=== PATIENT | female | born 1950 | race Caucasian/White ===

== ENCOUNTER → 2018-04-22 03:15 | Outpatient (CLI) | payer MEDICARE, BC, SELFPAY ==
[2018-04-22 10:34] LABS: CREATININE 0.76 mg/dL (0.55-1.02); Cholesterol 199 mg/dL (50-200); Glucose 93 mg/dL (70-100); HDL Cholesterol 91 mg/dL (40-60); LDL CHOLESTEROL 95 mg/dL (<100); Potassium 4.1 mmol/L (3.5-5.1); Triglyceride 64 mg/dL (30-150)
== END ==
PROVIDERS: PCP Family Medicine; Visit Provider Family Medicine
DX: E78.5 Hyperlipidemia, unspecified (principal); I10 Essential (primary) hypertension; Z13.1 Encounter for screening for diabetes mellitus
CPT/HCPCS: 36415; 80061; 82947; 83721; 82565; 84132

== ENCOUNTER → 2018-05-15 08:47 | Outpatient (BNVA) | payer MEDICARE, BC, SELFPAY | PROVIDERS: PCP Family Medicine; Referring Provider Family Medicine; Visit Provider Surgery | DX: R49.0 Dysphonia (principal) | CPT/HCPCS: 99202 ==

== ENCOUNTER 2018-06-11 07:33 | Day surgery (SDC) | payer MEDICARE, BC, SELFPAY ==
--- NOTE | 2018-06-11 06:43 | PDOC.DSDIS_ITS ---
Discharge Plan Disposition Patient Disposition: HOME Condition: Good Discharge Details Reason For Visit: GERD Attending Provider: Isadora Mercado Primary Care Provider: Meño Cowan Home Meds and New Rx's Prescriptions: Continue multivitamin [Once Daily] 1 EACH tablet 1 tab PO DAILY RF: 0 docusate sodium [Colace] 100 MG capsule 100 mg PO DAILY Qty: 180 RF: 4 omega-3 fatty acids-fish oil 1 EACH capsule 1 cap PO DAILY RF: 0 conjugated estrogens [Premarin] 45 GM cream 1 g VG TWICE WEEKLY Qty: 1 RF: 0 lutein 20 MG tablet 20 mg PO DAILY RF: 0 amlodipine [Norvasc] 10 MG tablet 10 mg PO QAM Qty: 90 RF: 3 hydrochlorothiazide 25 MG tablet 25 mg PO QAM Qty: 90 RF: 3 lisinopril 10 mg tablet 10 mg PO DAILY Qty: 90 RF: 3 omeprazole 40 mg Capsule,Delayed Release(Dr/Ec) 40 mg PO BID RF: 0 Discharge Instructions Instructions: Upper Endoscopy (DC), Diet for Stomach Ulcers and Gastritis (GEN) , Gastritis (DC), Esophagitis (DC) Additional Instructions: Findings: Inflammation of stomach and esophagus Follow up: as needed. Check in with me at the hospital in about 4 weeks New Medications: none Please call if you develop: Fevers >101.5 Nausea or Vomiting Abdominal pain that is not transient Shortness of breath 1. Because there will be medication in your system for the next 24 hours, you may feel a little sleepy. Your coordination will be affected. Therefore: a. Do not drive or operate dangerous equipment for 24 hours. b. Do not drink alcohol beverages for 24 hours (not even beer). c. Plan to go home and rest for the day. 2. Generally there are no restrictions on your activity after a day or so has gone by, but you may feel a bit fatigued for a few days. 3 After you arrive home you may have a light meal and return to a normal diet as you can tolerate it without feeling sick to your stomach. 4. After surgery, you may feel pain or discomfort. This should be only transient , but if it persists please contact your doctor. 5. If there are any questions regarding the findings of your procedure, please feel free to contact your doctor. 6. If you are unable to contact your doctor with a problem, contact the hospital at [phone]. 7. Continue all your regular medications unless directed otherwise. I understand the above instructions and have no questions. Signature of Patient or Responsible Adult Escort Date/Time Name of Responsible Adult Escort Signature of Nurse Date/Time Stand Alone Forms: Cleve Monroe (ANDRIYU) Print Language: Senegalese Activity:: Activity as Tolerated Diet:: As Tolerated
--- NOTE | 2018-06-11 06:52 | ROE_ITS ---
Date of service: 06/11/18 Operative Note DATE OF PROCEDURE: 06/11/18 PRE-OP DIAGNOSIS: Hoarsness POST-OP DIAGNOSIS: other (Gastritis, esophagitis and gastric polyps) PROCEDURE: EGD with biopsies SURGEON: Isadora Mercado ANESTHESIA: MAC (Bunny Abreu, GONZALES) ESTIMATED BLOOD LOSS: 5 PATHOLOGY: other (Biopsies of antrum, gastric polyp bx and GE junction bx) COMPLICATIONS: None Patient was transported to: same day Patient's condition: stable Indications: Mrs. Kc is a pleasant 67 year old female who has been having hoarsness and dry cough for a while. She saw me in the office and we started her on Omeprazole. She then saw ENT who diagnosed with reflux and increased her Omeprazole to BID. She is here today for an EGD. Findings: Moderate Gastritis and gastric polyps. GE junction with inflammation Procedure Description: After informed consent was obtained the patient was take to the procedure room and placed in a supine position. Monitors were applied and a time out was done. The patients name, date of , procedure type, allergies to medications and metal in their body was reviewed. A bite block was placed and the patient was sedated. Once sedated and comfortable the gastroscope was advanced through the oropharynx which was grossly normal into the esophagus. The proximal and mid-esophagus were normal. In the distal esophagus there was moderate inflammation noted. The scope was advanced into the stomach and through the pylorus into the 3rd portion of the duodenum. The duodenum was noted to be normal. The scope was retracted back into the stomach and biopsies were done to rule out H. pylori. There were numerous gastric polyps and several were biopsied. The scope was retro-flexed. The cardia and fundus were noted to be normal. The scope was retracted back into the esophagus and biopsies were done of the GE junction to rule out Newberry's. The Z line was irregular. The GE junction was at 35 cm. The scope was removed and the patient was woken up and taken back to [facility] in stable condition. Follow up: I will check in with her in 4 weeks. For now continue with Omeprazole 40 mg BID.
[2018-06-11 07:48] VITALS: BP 148/77; PULSE 87; RESP 16; TEMP 36.8; O2SAT 97
[2018-06-11] MEDS: Lactated Ringers 1,000 ML 80 ML IV (08:01)
--- NOTE | 2018-06-11 09:00 | STOM_PTH ---
PATIENT: Leona Kc LOC: [facility] U#:[id number] AGE/SX: 67/F ROOM: RE06/11/[address]: Isadora Mercado MD : [id number] BED: DIS: 06/11/2018 SPEC #: [id number] RECD: 06/11/18 12:38 STATUS: LEO REQ #: [id number] ELLIE: 06/11/18 09:[address]: Isadora Mercado DEPT: Surgical Specimen RECD BY: Caty Lanza ENTERED: 06/11/18 12:41 SP TYPE: STOMACH OTHR DR: Meño Cowan MD Tissues: 1 - STOMACH BIOPSY 2 - STOMACH BIOPSY 3 - ESOPHAGUS BIOPSY Procedures: GROSS AND MICRO LEVEL 4 Comments: [id number]
[2018-06-11 09:28] VITALS: BP 131/74; PULSE 71; RESP 14; TEMP 36.3; O2SAT 98
== END 2018-06-11 10:20 | disposition home or self-care (01) ==
LOC: SUR 07:34
PROVIDERS: PCP Family Medicine; Visit Provider Surgery
PROC: 0DJ68ZZ Inspection of Stomach, Via Natural or Artificial Opening Endoscopic (ICD-10-PCS; CPT 43235; principal; 2018-06-11 08:45)
DX: R49.0 Dysphonia (principal); K21.0 Gastro-esophageal reflux disease with esophagitis; K31.7 Polyp of stomach and duodenum; K29.30 Chronic superficial gastritis without bleeding; I10 Essential (primary) hypertension
CPT/HCPCS: 43239; 88305; J2250; J3010

== ENCOUNTER 2018-12-10 00:26 | Outpatient (CLI) | payer MEDICARE, BC, SELFPAY ==
--- NOTE | 2018-12-10 15:45 | DI.MAMMO_ITS ---
SYMPTOMS/DIAGNOSIS: SCREENING, Z12.31 MAMMOGRAMS: Mammograms were interpreted according to the usual protocol including computer analysis with CAD system, tomosynthesis and C view imaging. The breast tissue is of moderate radiodensity. There is no dominant mass. There are no suspicious calcifications and there has been no significant interval change when compared with prior studies. SUMMARY: No evidence of malignancy, category 1. Yearly screening mammography is recommended. Breast density category B. SA ASSESSMENT OF FINDINGS: Negative. Category 1. Patient will receive a letter notifying them of these results. BI-RADS category B. There are scattered areas of fibroglandular density.
== END 2018-12-10 00:46 ==
PROVIDERS: PCP Family Medicine; Visit Provider Obstetrics & Gynecology
DX: Z12.31 Encounter for screening mammogram for malignant neoplasm of breast (principal)
CPT/HCPCS: 77063; 77067

== ENCOUNTER → 2019-03-05 07:52 | Outpatient (BNVA) | payer MEDICARE, BC, SELFPAY | PROVIDERS: PCP Family Medicine; Referring Provider Family Medicine; Visit Provider Surgery | DX: K21.9 Gastro-esophageal reflux disease without esophagitis (principal); I10 Essential (primary) hypertension | CPT/HCPCS: 99213 ==

== ENCOUNTER 2019-05-11 09:55 | Outpatient (CLI) | payer MEDICARE, BC, SELFPAY ==
[2019-05-11 11:09] LABS: CREATININE 0.74 mg/dL (0.55-1.02); Potassium 4.4 mmol/L (3.5-5.1)
== END 2019-05-11 10:15 ==
PROVIDERS: PCP Family Medicine; Visit Provider Family Medicine
DX: I10 Essential (primary) hypertension (principal); K21.0 Gastro-esophageal reflux disease with esophagitis
CPT/HCPCS: 36415; 99212; 99213; 82565; 84132

== ENCOUNTER → 2019-10-15 09:26 | Outpatient (BNVA) | payer MEDICARE, BC, SELFPAY | PROVIDERS: PCP Family Medicine; Referring Provider Family Medicine; Visit Provider Surgery | DX: R49.0 Dysphonia (principal); I10 Essential (primary) hypertension | CPT/HCPCS: 99212; 99213 ==

== ENCOUNTER 2020-04-06 10:00 | Outpatient (CLI) | payer MEDICARE, BC, SELFPAY ==
--- NOTE | 2020-04-06 09:45 | DI.MAMMO_ITS ---
EXAM: MAMMO SCREENING CLINICAL HISTORY: SCREENING, Z12.39 TECHNIQUE: Mammograms were interpreted according to the usual protocol including computer analysis w ith CAD system, tomosynthesis and C-view imaging. COMPARISON: 2009 through 2018 FINDINGS: The breasts are composed of scattered fibroglandular densities, Breast Density category B. No suspicious masses or suspicious microcalcifications are seen. No skin thickening or abnormal axillary lymph nodes are seen. There has been no significant change from prior exams. IMPRESSION: BI-RADS Category 1, Negative mammogram Yearly screening mammography is recommended. Breast Density Category B, scattered fibroglandular densities.
== END 2020-04-06 10:20 ==
PROVIDERS: PCP Family Medicine; Visit Provider Obstetrics & Gynecology
DX: Z12.31 Encounter for screening mammogram for malignant neoplasm of breast (principal); R92.2 Inconclusive mammogram
CPT/HCPCS: 77063; 77067

== ENCOUNTER 2020-05-26 02:46 | Outpatient (CLI) | payer MEDICARE, BC, SELFPAY ==
[2020-05-26 12:59] LABS: CREATININE 0.68 mg/dL (0.55-1.02); Calculated LDL 125 mg/dL (<100); Cholesterol 237 mg/dL (<200); HDL Cholesterol 95 mg/dL (40-60); Potassium 4.4 mmol/L (3.5-5.1); Triglyceride 87 mg/dL (<150)
== END 2020-05-26 03:06 ==
PROVIDERS: PCP Family Medicine; Visit Provider Family Medicine
DX: E78.5 Hyperlipidemia, unspecified (principal); I10 Essential (primary) hypertension
CPT/HCPCS: 36415; 80061; 82565; 84132

== ENCOUNTER → 2020-08-15 07:59 | Outpatient (BNVA) | payer MEDICARE, BC, SELFPAY | PROVIDERS: PCP Family Medicine; Referring Provider Family Medicine; Visit Provider Surgery | DX: R10.10 Upper abdominal pain, unspecified (principal); Z11.59 Encounter for screening for other viral diseases; Z98.890 Other specified postprocedural states | CPT/HCPCS: 99213 ==

== ENCOUNTER 2020-08-25 02:12 | Outpatient (CLI) | payer MEDICARE, BC, SELFPAY ==
[2020-08-28 12:22] LABS: COVID-19 RT-PCR Result NEGATIVE (Negative)
== END 2020-08-25 02:32 ==
PROVIDERS: PCP Family Medicine; Visit Provider Surgery
DX: Z01.818 Encounter for other preprocedural examination (principal); Z11.59 Encounter for screening for other viral diseases
CPT/HCPCS: U0003

== ENCOUNTER 2020-08-30 07:09 | Day surgery (SDC) | payer MEDICARE, BC, SELFPAY ==
--- NOTE | 2020-08-30 06:59 | W.COLOREPORT ---
Date of service: 08/30/20 Time of Service: : Colonoscopy Report Date of procedure: 08/30/20 Pre-op diagnosis general: Abdominal pain Post-op diagnosis procedure note: other (Normal colonoscopy) Procedure: Colonoscopy Surgeon: Isadora Mercado Anesthesia proc note operative: other (General/ASA 2/Kylie valadez, GONZALES) Estimated blood loss (mL): 0 Pathology: none sent Complications: None Disposition: same day Indications: Shoshana is here today because she has been having some increased frequency of upper abdominal pain. The pain is crampy in nature. It is intermittent. She has had pain like this in the past after having an epigastric hernia repaired. Differential diagnosis includes recurrence of the hernia, although I could not feel a recurrence today, pain from scar tissue, or other abdominal pathology. We discussed doing a CT scan abdomen pelvis with IV and oral contrast. Her last colonoscopy was 9-1/2 years ago and was normal. With her new abdominal complaints as well as being 9-1/2 years out from her last colonoscopy I think a colonoscopy is also reasonable. We will schedule CT scan abdomen pelvis with IV contrast. We will also schedule her for a colonoscopy and Covid testing prior to the procedure. Risks, benefits and complications have been reviewed. Complications include but are not limited to bleeding, pain, perforation, missed small lesion/polyp, sore throat, aspiration and adverse reaction to the medications. Questions were entertained and answered to their satisfaction and they wished to proceed. No guarantees were given or implied. COVID-19 testing explained to the patient. Reason for test reviewed. Quarantine per state requirements reviewed with patient. Patient understands and agrees to testing. Prep: Miralax/Dulcolax Procedure Start Time: : Procedure End Time: :13 Retraction Time: 18 minutes Findings: Normal colon Procedure Description: After informed consent was obtained the patient was taken to the procedure room and placed in a left decubitous position. Monitors were applied and a time out was done. The patients name, date of , procedure, allergies to medications and metal in their body was reviewed. The patient was then sedated. Once sedated and comfortable a rectal exam was done. External exam was normal. Internal exam revealed a normal sphincter tone and no palpable masses. The scope was then introduced and retro-flexed. No internal hemorrhoids were identified. The scope was then advanced to the cecum with a lot of difficulty do to a tortuous colon. The ileocecal valve and appendiceal orifice were identified. The prep was adequate. The scope was then slowly retracted over 18 minutes back into the rectum. There were no polyps and no diverticulosis. The scope was removed and the patient was woken up and taken back to Same day surgery in stable condition. The patient tolerated the procedure well and there were no immediate complications. Follow up: The patient should follow up in 10 years unless they develop changes in bowel habits or other new gastrointestinal complaints.
--- NOTE | 2020-08-30 07:00 | W.PM.DSUDISC ---
Discharge Plan Disposition Patient Disposition: HOME Condition: Good Discharge Details Reason For Visit: Colonoscopy Attending Provider: Isadora Mercado Primary Care Provider: Meño Cowan Home Meds and New Rx's Prescriptions: Continued aspirin [Adult Low Dose Aspirin] 81 mg tablet,delayed release (DR/EC) 81 mg PO DAILY RF: 0 multivitamin [Once Daily] 1 EACH tablet 1 tab PO DAILY RF: 0 docusate sodium [Colace] 100 MG capsule 100 mg PO DAILY Qty: 180 RF: 4 omega-3 fatty acids-fish oil 1 EACH capsule 1 cap PO DAILY RF: 0 lutein 20 MG tablet 20 mg PO DAILY RF: 0 amlodipine [Norvasc] 10 mg tablet 10 mg PO QAM Qty: 90 RF: 3 hydrochlorothiazide 25 mg tablet 25 mg PO QAM Qty: 90 RF: 3 omeprazole 40 mg capsule,delayed release(DR/EC) 40 mg PO DAILY Qty: 90 RF: 3 losartan 50 mg tablet 75 mg PO DAILY Qty: 145 RF: 3 Discontinued bisacodyl [Dulcolax (bisacodyl)] 5 mg tablet,delayed release (DR/EC) 5 mg PO ONCE Qty: 4 RF: 0 polyethylene glycol 3350 17 gram powder in packet 255 g PO DAILY Qty: 15 RF: 0 Discharge Instructions Additional Instructions: Findings: Normal colonoscopy Follow up: 10 years Please call if you develop: fevers >101.5 Nausea or Vomiting Abdominal pain that is not transient DAY SURGERY UNIT POST ENDOSCOPY INSTRUCTIONS 1. Because there will be medication in your system for the next 24 hours, you may feel a little sleepy. Your coordination will be affected. Therefore: a. Do not drive or operate dangerous equipment for 24 hours. b. Do not drink alcohol beverages for 24 hours (not even beer). c. Plan to go home and rest for the day. 2. Generally there are no restrictions on your activity after a day or so has gone by, but you may feel a bit fatigued for a few days. 3 After you arrive home you may have a light meal and return to a normal diet as you can tolerate it without feeling sick to your stomach. 4. After surgery, you may feel pain or discomfort. This should be only transient, but if it persists please contact your doctor. 5. If there are any questions regarding the findings of your procedure, please feel free to contact your doctor. 6. If you are unable to contact your doctor with a problem, contact the hospital at [phone]. 7. Continue all your regular medications unless directed otherwise. I understand the above instructions and have no questions. Signature of Patient or Responsible Adult Escort Date/Time Name of Responsible Adult Escort Signature of Nurse Date/Time Activity:: Activity as Tolerated Diet:: As Tolerated Discharge Orders Discharge Orders: Discharge Order (Routine); Ordered 08/30/20 Ordered By: Isadora Mercado
[2020-08-30 07:28] VITALS: BP 124/83; PULSE 81; RESP 16; TEMP 36.6; O2SAT 98
[2020-08-30] MEDS: Lactated Ringers 1,000 ML 80 ML IV (07:50)
[2020-08-30] MEDS: Hyoscyamine 0.125 MG SL/ORAL/CHEW SL (09:36)
[2020-08-30 09:50] VITALS: BP 134/73; PULSE 71; RESP 18; TEMP 36.5; O2SAT 98
== END 2020-08-30 10:28 | disposition home or self-care (01) ==
LOC: SUR 07:10
PROVIDERS: PCP Family Medicine; Visit Provider Surgery
PROC: 0DJD8ZZ Inspection of Lower Intestinal Tract, Via Natural or Artificial Opening Endoscopic (ICD-10-PCS; CPT 45378; principal; 2020-08-30 08:15)
DX: R10.10 Upper abdominal pain, unspecified (principal)
CPT/HCPCS: 45378; J2001; J3490

== ENCOUNTER 2020-09-04 01:42 | Outpatient (CLI) | payer MEDICARE, BC, SELFPAY ==
[2020-09-04 09:25] LABS: CREATININE 0.74 mg/dL (0.55-1.02)
--- NOTE | 2020-09-04 10:25 | DI.CT_ITS ---
EXAM: CT ABDOMEN PELVIS W CLINICAL HISTORY: upper abd pain, h/o epigastric hernia repair. TECHNIQUE: Imaging Protocol: Axial computed tomography images with coronal and sagittal reformatted images were created and reviewed CONTRAST MATERIAL: Intravenous: Omnipaque 100cc Oral: Yes. COMPARISON: No exams were available for comparison FINDINGS: VISUALIZED LUNG BASES: No nodules nor pleural effusions evident. ABDOMEN: There is no ascites. LIVER: Is a small cyst in inferior right hepatic lobe which measures 1.2 by 0.9 centimetres. No othe r focal hepatic findings. No dilatation of intrahepatic ducts. GALLBLADDER/BILIARY: No obvious gallbladder pathology. CBD is not dilated. PANCREAS: No evidence of pancreatic mass nor dilatation of the pancreatic duct. SPLEEN: Spleen size is normal. There is a 2.6 by 0.6 x 4.0 cm subcapsular fluid collection along lat eral aspect of the spleen. This appears uniform in density. No other intrasplenic findings. The sp lenic and portal veins are patent. ADRENALS: There are no significant adrenal masses. KIDNEYS:There is a prominent extrarenal pelvis in left kidney. This is associated with mild hydronep hrosis. Probable element of UPJ obstruction. A smaller extrarenal pelvis in the right kidney is not ed, this not associated with caliectasis. The mid-lower ureters are not dilated. No obvious abnorma lity in the urinary bladder. No solid renal masses. No calculi nor hydronephrosis.. ABDOMINAL AORTA: Abdominal aorta is not enlarged and there is no [id number] adenopat hy. ABDOMINAL WALL/GI: No evidence of significant anterior abdominal wall hernia. No bowel obstruction. PELVIS: GI: No evidence of appendicitis.No evidence of sigmoid diverticulitis. LYMPH NODES: There is no intrapelvic nor inguinal adenopathy. REPRODUCTIVE: There is a prominent posterior myometrial calcified uterine fibroid which measures 3 x 3 centimetres. There are no abnormal adnexal masses. No free fluid in the pelvis. URINARY BLADDER: No calculi nor obvious masses evident OSSEOUS: Degenerative anterolisthesis of L4 upon L5 due to facet arthropathy and there is some disc s pace narrowing at this level also evident. There is approximately 1 centimeter anterior slippage of L4 upon L5. No other listhesis. Superior endplate Schmorl's node invagination in lower thoracic ilir tebrae noted. No lytic osseous lesions evident. IMPRESSION: 1. There is a longitudinally orientated subcapsular fluid collection along the lateral aspect of the spleen, this measuring 4 cm cephalocaudal by 0.6 centimeter wide by 2.6 centimeter AP. 2. There is a 12 x 9 millimeter benign cyst in the right hepatic lobe, inferiorly. No solid hepatic lesions. 3. Prominent extrarenal pelvis on the left side with an element of mild hydronephrosis. This most pr obably related to an element of left-sided UPJ obstruction. There is no significant thinning of the cortical mantle. Urology consultation recommended. A smaller extrarenal pelvis on the opposite-righ t side is noted, this not associated with ipsilateral caliectasis. No other significant renal findin gs. 4. 3 centimeter calcified uterine fibroid. RADIATION DOSE DELIVERED: 816.43mGy.cm Total DLP DATA REPOSITORY: All CT scans at this facility are submitted to the National Radiology Data Registry (NRDR) Dose Index Registry (DIR) with the [employer] (A[employer]). RADIATION OPTIMIZATION: All CT scans at this facility use at least one of these dose optimization te chniques: automated exposure control; mA and/or kV adjustment per patient size (includes targeted exa ms where dose is matched to clinical indication); or iterative reconstruction.
[2020-09-04] MEDS: Normal Saline - Diluent 50 ML VIAL IV (10:27)
[2020-09-04] MEDS: Omnipaque 350 MG/ML 100 ML BTL IJ (10:28)
[2020-09-04] MEDS: Breeza Beverage 473 ML BTL PO ×2 (10:29)
== END 2020-09-04 02:02 ==
PROVIDERS: PCP Family Medicine; Visit Provider Surgery
DX: R10.10 Upper abdominal pain, unspecified (principal); K76.89 Other specified diseases of liver; N13.30 Unspecified hydronephrosis; D73.89 Other diseases of spleen; D25.9 Leiomyoma of uterus, unspecified
CPT/HCPCS: 74177; 82565; J3490

== ENCOUNTER 2020-11-30 02:23 | Outpatient (CLI) | payer MEDICARE, BC, SELFPAY ==
--- NOTE | 2020-11-30 14:27 | DI.DEXA_ITS ---
EXAM: XR DEXA BONE DENSITY W/WO SERA CLINICAL HISTORY: SCREENING FOR OSTEOPOROSIS IN POSTMENOPAUSAL WOMAN,Z78.0 TECHNIQUE: Routine DEXA evaluation of the lumbar spine, hip, or forearm. COMPARISON: Prior DXA scans 2013 and 2008 FINDINGS: Performed on a [facility] unit. Lateral image: No compression fracture evident. Lumbar Spine total T-score: -1.4 2014 reading was -0.6 Hip total T-score:-1.6 . Prior 2014 reading was -1.0 Independent reading at the level left femoral neck today is a T-score of -2.0 Forearm total T-score: -2.6 IMPRESSION: Bone mineral density measures in the osteopenia range. Fracture risk is moderate. Note: Any spine fracture indicates 5x risk for subsequent spine fracture and 2x risk for subsequent h ip fracture. World Health Organization criteria for BMD interpretation classify patients: Normal...... T- Score at or above -1.0 Osteopenic... T- Score between -1.0 and -2.5 Osteoporosis... T-Score at or below -2.5
== END 2020-11-30 02:43 ==
PROVIDERS: PCP Family Medicine; Visit Provider Family Medicine
DX: M85.88 Other specified disorders of bone density and structure, other site (principal); Z78.0 Asymptomatic menopausal state
CPT/HCPCS: 77080

== ENCOUNTER 2021-05-10 01:33 | Outpatient (CLI) | payer MEDICARE, BC, SELFPAY ==
--- NOTE | 2021-05-10 07:30 | DI.RAD_ITS ---
Exam(s) XR KNEE RT 3V AP,LAT,GUNNER EXAM: XR KNEE RT 3V AP,LAT,GUNNER CLINICAL HISTORY: rt knee pain,M25.569,G89.29. TECHNIQUE: 2D digital imaging was performed. COMPARISON: No exams were available for comparison FINDINGS: BONES: No acute fracture is present. No bony destructive lesion is seen. JOINTS: The knee is normally aligned. No joint effusion is seen. There is mild periarticular spurri ng. SOFT TISSUE: Normal. IMPRESSION: Mild degenerative changes. DATA REPOSITORY: RADIATION DOSE DELIVERED:
== END 2021-05-10 01:53 ==
PROVIDERS: PCP Family Medicine; Visit Provider Family Medicine
DX: M25.561 Pain in right knee; G89.29 Other chronic pain
CPT/HCPCS: 73562

== ENCOUNTER 2021-06-28 11:04 | Outpatient (CLI) | payer MEDICARE, BC, SELFPAY ==
--- NOTE | 2021-06-28 10:45 | DI.RAD_ITS ---
Exam(s) XR KNEE RT 1V EXAM: XR KNEE RT 1V CLINICAL HISTORY: right knee pain. TECHNIQUE: 2D digital imaging was performed. COMPARISON: CR XR KNEE RT 3V AP,LAT,GUNNER from 05/10/2021 FINDINGS: Single merchant's view of the right knee reveals no degenerative changes in the patellofemoral compar tment. No joint space narrowing. No osteochondral defects. Bone density appears normal. No fractu res evident. IMPRESSION: DATA REPOSITORY: RADIATION DOSE DELIVERED:
== END 2021-06-28 11:05 | disposition home or self-care (01) ==
LOC: DIORS 11:05
PROVIDERS: PCP Family Medicine; Referring Provider Family Medicine; Visit Provider Student in an Organized Health Care Education/Training Program
DX: M25.561 Pain in right knee (principal)
CPT/HCPCS: 99213; 73560

== ENCOUNTER 2021-07-13 02:29 | Outpatient (CLI) | payer MEDICARE, BC, SELFPAY ==
--- NOTE | 2021-07-13 08:30 | DI.MRI_ITS ---
Exam(s) MR LOWER JOINT RT WO EXAM: MR LOWER JOINT RT WO CLINICAL HISTORY: RT ANT KNEE PAIN, M25.561. TECHNIQUE: Multiplanar multisequence MRI Examination was performed. COMPARISON: None. FINDINGS: BONES/JOINTS: No evidence of fracture. No evidence of bone lesion. No joint space narrowing identifie d. Moderate-sized joint effusion identified. Mild synovial thickening. Fluid extends inferiorly al ricardo popliteus muscle. LIGAMENTS: The anterior and posterior cruciate ligaments and medial and lateral collateral ligaments are intact. Menisci: Both anterior horns are diminutive. Both menisci show peripheral displacement consistent wi th degenerative change. There is increased horizontal signal in the anterior horn of the lateral men iscus which has a somewhat linear configuration which could represent a superimposed tear. Cartilage: Focal small linear defect at the apex of the patella. SOFT TISSUES: Unremarkable. IMPRESSION: Degenerative changes of both menisci. Probable superimposed horizontal tear in the anterior horn of the lateral meniscus. Moderate-sized joint effusion. No ligament tears. DATA REPOSITORY:
== END 2021-07-13 02:49 ==
PROVIDERS: PCP Family Medicine; Visit Provider Student in an Organized Health Care Education/Training Program
DX: M25.561 Pain in right knee (principal); M25.461 Effusion, right knee; M17.11 Unilateral primary osteoarthritis, right knee
CPT/HCPCS: 73721

== ENCOUNTER 2021-08-06 03:10 | Outpatient (CLI) | payer MEDICARE, BC, SELFPAY ==
[2021-08-06 12:43] LABS: Source Nasal/Nares
[2021-08-06 17:39] LABS: COVID-19 PCR Negative (Negative)
== END 2021-08-06 03:11 | disposition home or self-care (01) ==
PROVIDERS: PCP Family Medicine; Visit Provider Student in an Organized Health Care Education/Training Program
DX: Z20.822 Contact with and (suspected) exposure to COVID-19 (principal)
CPT/HCPCS: 87635

== ENCOUNTER 2021-08-07 11:08 | Day surgery (SDC) | payer MEDICARE, BC, SELFPAY ==
[2021-08-07] VITALS (9 sets, daily range): BP systolic 123–160; BP diastolic 61–91; PULSE 64–83; RESP 12–17; TEMP 36.1–36.8; O2SAT 95–100; BMI 28.7
[2021-08-07] MEDS: Lactated Ringers 1,000 ML 80 ML IV (11:48)
--- NOTE | 2021-08-07 12:10 | ANES.PREOP_ITS ---
General Info Date of Service Date Performed: 08/07/21 Height: 5 ft 1 in Weight: 68.9 kg Body Mass Index (BMI): 28.7 Surgical Procedure: Operation Date: 08/07/21 14:25 Proposed Procedures Side Surgeon p Knee Arthroscopy partial medial menisectomy Right Yinka Peoples MD Meds Allergies and Home Medications Allergies Allergy/AdvReac Type Severity Reaction Status Date / Time Tetanus Vaccines and Toxoid Allergy Intermediate SEVERE Verified 08/07/21 11:26 LOCAL REACTION atenolol AdvReac Intermediate RAYNAUD'S Verified 08/07/21 11:26 Home Medication Medication Instructions Recorded docusate sodium [Colace] 100 mg PO DAILY #180 tab-cap 02/03/13 multivitamin [Once Daily] 1 tab PO DAILY 02/03/13 omega-3 fatty acids-fish oil 1 cap PO DAILY 02/03/13 lutein 20 mg PO DAILY 06/04/16 aspirin 81 mg tablet,delayed 81 mg PO DAILY 05/11/19 release amlodipine 10 mg tablet 10 mg PO QAM #90 tab-cap 03/20/21 hydrochlorothiazide 25 mg tablet 25 mg PO QAM #90 tab-cap 03/20/21 losartan 50 mg tablet 75 mg PO DAILY #145 tab-cap 03/20/21 omeprazole 40 mg capsule,delayed 40 mg PO DAILY #90 cap 03/20/21 release Current Visit Medications: Current Medications Generic Name Dose Route Start Last Admin Trade Name Freq PRN Reason Stop Dose Admin Ringer's Solution 1,000 mls @ 80 mls/hr 08/07/21 06:00 08/07/21 11:48 IV 09/05/21 23:59 80 mls/hr INFUSION SHEY Administration Cefazolin Sodium/Dextrose 2 gm in 50 mls @ 100 mls/hr 08/07/21 06:00 Ancef Duplex IVPB 09/05/21 23:59 PREOP SHEY IV Miscellaneous Supplies 1 each 08/07/21 06:00 Iv Access IV 09/05/21 23:59 DIRECTED SHEY Sodium Chloride 0 ml 08/07/21 06:00 Normal Saline Flush 10 Ml Syr IV 09/05/21 23:59 PRN PRN Sodium Chloride 0 ml 08/07/21 06:00 Normal Saline 10 Ml Vial IJ 09/05/21 23:59 DIRECTED PRN Sterile Water 0 ml 08/07/21 06:00 Water,Injection,Sterile 10 Ml Vial IJ 09/05/21 23:59 DIRECTED PRN PFSH Active Problems Active Problems: Problem Status Onset Code Tear of lateral meniscus of right knee S83.281A Internal derangement of right knee M23.91 Right anterior knee pain M25.561 Chronic knee pain M25.569, G89.29 Hoarseness of voice R49.0 GERD without esophagitis K21.9 Atrophic vaginitis 05/29/15 N95.2 Back skin lesion 07/11/17 L98.9 Hypertension I10 Osteoarthritis M19.90 Esophagitis K20.9 Osteopenia M85.80 History of varicose vein ligation Z98.890, Z86.79 Dysplasia of cervix N87.9 Depressive disorder F32.9 Esophagitis determined by biopsy K20.9 H/O esophagogastroduodenoscopy ~06/2018 Z98.890 Medical History Medical History Atrophic vaginitis Back skin lesion Basal cell carcinoma, arm (~01/18/19) [place]/18/19 [facility] [place] B/L Change in voice Depressive disorder Dysplasia of cervix (uteri) Esophagitis determined by biopsy Gastric polyp GERD (gastroesophageal reflux disease) Hypertension Laryngopharyngeal reflux (LPR) 05/25/18-[facility] Osteoarthritis of right wrist Osteopenia Surgical History Surgical History Cervical Procedure CONE BX H/O esophagogastroduodenoscopy (~06/2018) HERNIA REPAIR epigastric Hx of colonoscopy LTL (~1987) Normal colonoscopy (~08/2020) VEIN ABLATION greater saphenous vein Tobacco Smoking/Tobacco Use Status: Former Tobacco Use Passive smoking exposure: Yes Second hand exposure: Yes Alcohol Alcohol Intake: never Substance Use Substance use: Never Substance use type: does not use Vital Signs and Lab Results Vital Signs Most Recent Vital Signs in EMR: Most Recent Vital Signs Temp Pulse Resp BP Pulse Ox 36.1 C L 79 16 142/72 H 98 08/07/21 11:17 08/07/21 11:17 08/07/21 11:17 08/07/21 11:17 08/07/21 11:17 Lab Results Blood Type / Crossmatch: No Data to Display Complete Blood Count: No Data to Display Complete Metabolic Panel: No Data to Display Liver Function Panel: No Data to Display Coagulation Panel: No Data to Display Cardiac Panel: No Data to Display Arterial Blood Gas: No Data to Display Venous Blood Gas: 2 No Data to Display Pancreas Panel: No Data to Display Thyroid Panel: No Data to Display Infectious Disease: Coronavirus (COVID-19)(PCR) Negative (Negative) 08/06/21 11:25 08/06/21 Coronavirus 2019 Source Nasal/Nares 08/06/21 11:25 08/06/21 Blood Cultures: No Data to Display Toxicology Panel: No Data to Display Anesthesia Assessment and Plan Anesthesia History Personal History: No History of Anesthesia Complications Family History: No Family History of Anesthesia Complications Exercise Tolerance Exercise Tolerance: Metabolic Equivalents>4 Pertinent Negatives Pertinent Negatives: No Symptoms of GERD, No Major Cardiovascular Symptoms or Complaints and No Major Pulmonary Symptoms or Complaints Cardiac & Pulmonary Exam Cardiac Exam: Normal S1/S2 Heart Sounds Pulmonary Exam: Clear Bilateral Breath Sounds Implantable Cardiac Device Does patient have a Pacemaker or an ICD?: No Airway Exam Known Difficult Airway: No Mallampati Class: 2 Mouth Opening: Normal (> 3cm) Thyromental Distance: Greater than 3 cm Neck Range of Motion: Full ROM Neck Circumference: Normal Teeth Condition: Normal Dentition ASA Classification ASA Score: ASA 2 Emergency Case?: No NPO Status NPO Status: NPO Clears >2 hours, Solids >8 hours Anesthesia Plan Resuscitation Status: Full Code Anesthesia Technique: General Anesthesia Airway Planned: LMA Monitors Used: Standard Monitors
--- NOTE | 2021-08-07 12:18 | W.PREOPHP ---
Date of service: 08/07/21 Time of Service: 12:18 Assessment and Plan Assessment and plan (1) Tear of lateral meniscus of right knee: Status: Acute Assessment and plan: Leona is a 70yo female who has a torn lateral meniscus of the right knee. She has failed nonoperative treatments. I discussed treatment options and offered knee arthroscopy with partial lateral menisectomy. I reviewed the risks of the procedure to include bleeding, infection, pain, stiffness, damage to nerves and vessels, recurrence, retear. Despite these risks, she elects to proceed. Qualifiers: Tear current or old: current Encounter type: subsequent encounter Meniscus tear of knee type: complex Qualified Code(s): S83.271D - Complex tear of lateral meniscus, current injury, right knee, subsequent encounter History of Present Illness History of Present Illness Chief Complaint: Right Knee Pain Narrative: Shoshana is a 70-year-old active female meniscal tear of the right knee. She has persistent pain about the right knee and has failed nonoperative treatments. She is here today for right knee arthroscopy with no intervention. Review of Systems All systems reviewed & are unremarkable except as noted in HPI and below PFSH Active Problem List Tear of lateral meniscus of right knee (Acute) Internal derangement of right knee (Acute) Right anterior knee pain (Acute) Chronic knee pain (Acute) Hoarseness of voice (Acute) GERD without esophagitis (Acute) Atrophic vaginitis (Acute 05/29/15) Back skin lesion (Acute 07/11/17) Hypertension (Acute) Osteoarthritis (Acute) Esophagitis (Acute) Osteopenia (Acute) History of varicose vein ligation (Acute) Dysplasia of cervix (Acute) Depressive disorder (Acute) Esophagitis determined by biopsy (Acute) H/O esophagogastroduodenoscopy (Chronic ~06/2018) Medical History Atrophic vaginitis Back skin lesion Basal cell carcinoma, arm (~01/18/19) 01/18/19 [facility] [place]; B/L Change in voice Depressive disorder Dysplasia of cervix (uteri) Gastric polyp GERD (gastroesophageal reflux disease) Hypertension Laryngopharyngeal reflux (LPR) 05/25/18-[facility]-kb Osteoarthritis of right wrist Osteopenia Surgical History Cervical Procedure CONE BX HERNIA REPAIR epigastric Hx of colonoscopy LTL (~1987) Normal colonoscopy (~08/2020) VEIN ABLATION greater saphenous vein Family History Mother , 79 Heart disease Macular degeneration Father , 62 Lung cancer Sister , 63 Lung cancer Maternal Grandfather Lung cancer Paternal Grandfather , 35 Septicemia AT YOUNG AGE Maternal Grandmother , 60 Essential hypertension Heart disease CHF Paternal Grandmother , 88 Stroke Sister No problems noted. Sister No problems noted. Son Essential hypertension Daughter No problems noted. Social History Smoking/Tobacco Use Status: Former Tobacco Use Quit Date: 09/08/84 Second Hand Exposure: Yes Smoking risk assessment performed?: Yes Alcohol Intake: never Drug use: Never Substance use type: does not use Caregiver/Support person: No Household members: significant other Housing: house Communication Needs: None Do you need help understanding health information?: Never Pets and animals: Yes Pets and animals: dog(s) Sexually active: Yes Do you think of yourself as: straight/heterosexual Current gender identity: female What is your relationship status?: living with partner How often do you talk on the phone with friends or family?: once per week How often do you get together with friends or relatives?: once per week Do you belong to any clubs or organized social groups?: no Panel score (0-1 are the most socially isolated patients): 1 What type of physical activity do you participate in: walking Duration: 30-45 minutes/day Frequency: 1-2 times per week Bee/Orthodox: None Special bee needs: No Seatbelt use: always Helmet use: Yes Helmet use: always Drive intox or ride w/intox crew car driver: No Do you feel safe at home: Yes Do you feel safe in your relationship?: Yes Meds Allergies and Home Medications Allergies Allergy/AdvReac Type Severity Reaction Status Date / Time Tetanus Vaccines and Toxoid Allergy Intermediate SEVERE Verified 08/07/21 11:26 LOCAL REACTION atenolol AdvReac Intermediate RAYNAUD'S Verified 08/07/21 11:26 Home Medications Medication Instructions Recorded Confirmed Type docusate sodium [Colace] 100 mg PO DAILY #180 tab-cap 02/03/13 08/07/21 History multivitamin [Once Daily] 1 tab PO DAILY 02/03/13 08/07/21 History omega-3 fatty acids-fish oil 1 cap PO DAILY 02/03/13 08/07/21 History lutein 20 mg PO DAILY 06/04/16 08/07/21 History aspirin 81 mg tablet,delayed 81 mg PO DAILY 05/11/19 08/07/21 History release amlodipine 10 mg tablet 10 mg PO QAM #90 tab-cap 03/20/21 08/07/21 Rx hydrochlorothiazide 25 mg tablet 25 mg PO QAM #90 tab-cap 03/20/21 08/07/21 Rx losartan 50 mg tablet 75 mg PO DAILY #145 tab-cap 03/20/21 08/07/21 Rx omeprazole 40 mg capsule,delayed 40 mg PO DAILY #90 cap 03/20/21 08/07/21 Rx release Exam Resp Effort & Inspection: normal respiratory effort Auscultation: clear to auscultation bilaterally Cardio Rate: regular rate Rhythm: regular rhythm Results Last Vital Signs Temp 36.1 C L 08/07/21 11:17 Pulse 79 08/07/21 11:17 Resp 16 08/07/21 11:17 BP 142/72 H 08/07/21 11:17 Pulse Ox 98 08/07/21 11:17
--- NOTE | 2021-08-07 12:43 | W.PM.DSUDISC ---
Discharge Plan Disposition Patient Disposition: HOME Condition: Good Discharge Details Reason For Visit: R knee arthrsocopy Attending Provider: Yinka Peoples Primary Care Provider: Meño Cowan Home Meds and New Rx's Prescriptions: New hydrocodone-acetaminophen 5-325 mg tablet 1 tab PO Q6H PRN (Reason: pain) Qty: 3 RF: 0 acetaminophen 500 mg tablet 1,000 mg PO TID Qty: 90 RF: 0 ibuprofen 600 mg tablet 600 mg PO TID PRN (Reason: pain) Qty: 90 RF: 0 Continued aspirin [Adult Low Dose Aspirin] 81 mg tablet,delayed release (DR/EC) 81 mg PO DAILY RF: 0 multivitamin [Once Daily] 1 EACH tablet 1 tab PO DAILY RF: 0 docusate sodium [Colace] 100 MG capsule 100 mg PO DAILY Qty: 180 RF: 4 omega-3 fatty acids-fish oil 1 EACH capsule 1 cap PO DAILY RF: 0 lutein 20 MG tablet 20 mg PO DAILY RF: 0 hydrochlorothiazide 25 mg tablet 25 mg PO QAM Qty: 90 RF: 3 losartan 50 mg tablet 75 mg PO DAILY Qty: 145 RF: 3 omeprazole 40 mg capsule,delayed release(DR/EC) 40 mg PO DAILY Qty: 90 RF: 3 amlodipine [Norvasc] 10 mg tablet 10 mg PO QAM Qty: 90 RF: 3 Discharge Instructions Stand Alone Forms: [facility]th[facility] Referrals: Yinka Peoples MD [ [facility] STAFF PHYSICIAN] - Activity:: Activity as Tolerated Remove Dressings/Wound Care:: 48 hours Shower/Bathe:: 48 hours Diet:: As Tolerated Discharge Orders Discharge Orders: Discharge Order (Routine); Ordered 08/07/21 Ordered By: Rufino Farr DS: Diagnosis Discharge Diagnosis (1) Tear of lateral meniscus of right knee: Status: Acute
[2021-08-07] MEDS: ceFAZolin 2 GM/50 ML BAG IVPB (13:12)
[2021-08-07] MEDS: Bupivacaine 0.5% Pres-Free 30 ML VIAL (13:39)
[2021-08-07] MEDS: fentaNYL 100 MCG/2 ML VIAL IVP ×2 (14:10→14:35)
--- NOTE | 2021-08-07 15:32 | W.ANESPOSTOP ---
Postoperative Evaluation Date, Time and Location Date Performed: 08/07/21 Time Performed: 15:32 Patient Location: Day Surgery Unit Vital Signs Most Recent Imported Vital Signs: Most Recent Vital Signs Temp Pulse Resp BP Pulse Ox 36.8 C 76 17 150/82 H 99 08/07/21 15:05 08/07/21 15:05 08/07/21 15:05 08/07/21 15:05 08/07/21 15:05 Pain Score Most Recent Pain Score: Most Recent Pain Score Pain Level 0 08/07/21 15:05 Assessment Mental Status: Awake (Alert & Oriented to Patient Baseline) Airway and Respiratory Function: Patent airway with normal (patient baseline) respiratory exam Cardiovascular Function: Hemodynamically Stable Hydration Status: Adequately Hydrated Nausea & Vomiting: No Nausea or Vomiting Pain: Pt. Denies Any Pain Peripheral Nerve Block: Patient did not receive a nerve block
--- NOTE | 2021-08-07 19:31 | W.PM.OP ---
Date of service: 08/07/21 Time of Service: 13:31 Operative Note Operative Note DATE OF PROCEDURE: 08/07/21 PRE-OP DIAGNOSIS: Right Knee Lateral Meniscus Tear POST-OP DIAGNOSIS: other (Right Knee Lateral and Medial Meniscus Tear) PROCEDURE: Right Knee Partial Medial and Lateral Menisectomies SURGEON: Yinka Peoples ANESTHESIA TYPE: General LMA/ETT Refer to Anesthesia Record ESTIMATED BLOOD LOSS: 0 PATHOLOGY: none sent TOURNIQUET TIME: 0 COMPLICATIONS: None Patient was transported to: PACU Patient's condition: stable Indications: I have seen Leona in clinic for symptoms of a meniscus tear. This was confirmed based on MRI and exam findings. Nonoperative measures were exhausted but disability and pain persisted. I discussed knee arthroscopy with meniscal intervention with the patient. I reviewed the risks of the procedure to include, but not limited to, bleeding, infection, pain, stiffness, damage to nerves or vessels, recurrence, blood clot. Despite these risks, the patient elected to proceed. Findings: A diagnostic arthroscopy was performed with the following findings: Suprapatellar Pouch: No significant inflammation, No loose bodies Medial Compartment: Complex medial meniscal tear wiht a primary parrot beak type tear which was displaced, Intact meniscal root, No significant chondromalacia or signs of arthritis, No loose bodies Notch: ACL and PCL were intact Lateral Compartment: Anterior meniscus tear, Intact meniscal root, Grade I chondromalacia of the tibia, No loose bodies Patellofemoral Compartment: No significant chondromalacia, No apparent patellar maltracking Procedure Description: Leona was greeted in the preoperative holding area where the correct side was identified and marked. The consent was reviewed with the patient and signed. The history and physical was updated. All questions were answered. She was taken back to the operating room. The patient was placed into the supine position on the operating room table. All bony prominences were well padded. Prophylactic antibiotics in the form of Cefazolin were administered. The right leg was then prepped with Chloraprep and draped in a standard fashion with stockinette and extremity drape. A timeout to confirm correct identity, side and site, procedure, allergies, anesthesia, and medical concerns was performed. The leg was placed into a pneumatic leg ibarra, SPIDER2. A standard lateral portal was made at the lateral border of the patella tendon in line with the inferior pole of the patella, soft spot. The skin and deep tissue was incised sharply and the blunt trochar was inserted atraumatically. A diagnostic arthroscopy was performed and the findings are listed above. The suprapatellar pouch had no significant inflammatory change. The patellofemoral articulation showed no articular damage as well as good tracking. The lateral gutter had no loose bodies and the medial gutter had no loose bodies. The knee was brought into some valgus stress in extension to open the medial compartment. A medial portal was made, localized by a spinal needle. The portal was created with an #11 blade through skin and capsule under direct visualization avoiding any meniscal injury. A probe was then inserted into the medial compartment. The medial compartment was fully inspected. The chondral surface of the tibia showed no significant chondromalacia and the surface of the femur showed no significant chondromalacia. The medial meniscus had a complex tear in the body of the medial menscus with a primary parrot bear type tear flipped on top of the meniscus anteriorly. After evaluation, the meniscus was debrided down to a stable base using a series of biters and arthroscopic dilip. It was probed afterwards to confirm that the tear had been removed and the meniscus was stable. The notch was then inspected which showed an intact ACL and an intact PCL. The leg was then brought into a figure of 4 position. The lateral compartment was fully inspected with the arthroscope and a probe. The chondral surface of the lateral femur showed no significant chondromalacia. The chondral surface of the lateral tibia showed Grade I chondromalacia. The lateral meniscus had a tear of the anterior meniscus. This appeared more chronic involving most of the anterior meniscus but with an intact anterior meniscal root. After evaluation, the meniscus was debrided down to a stable base using a series of biters and arthroscopic dilip. It was probed afterwards to confirm that the tear had been removed and the meniscus was stable. The arthroscope was brought back into the suprapatellar pouch and the leg was in full extension. The knee was thoroughly irrigated with the arthroscopic fluid on high flow and pressure. Inflow was stopped and excess fluid was removed. The wounds were closed with 4-0 Nylon. They were dressed with Xeroform, 4x4 gauze, ABD pad, Kerlix and an JORDAN wrap. A cryo-cuff was applied. The patient tolerated the procedure well and was returned to the Same Day Surgery area in a stable condition suffering no known complication.
== END 2021-08-07 16:20 | disposition home or self-care (01) ==
PROVIDERS: PCP Family Medicine; Visit Provider Student in an Organized Health Care Education/Training Program
PROC: (CPT 29870; principal; 2021-08-07 14:15)
DX: S83.271A Complex tear of lateral meniscus, current injury, right knee, initial encounter (principal); S83.231A Complex tear of medial meniscus, current injury, right knee, initial encounter; X58.XXXA Exposure to other specified factors, initial encounter; I10 Essential (primary) hypertension; K21.9 Gastro-esophageal reflux disease without esophagitis
CPT/HCPCS: 29880; J0690; J1100; J1885; J2001; J2405; J2704; J3010

== ENCOUNTER 2021-08-20 11:14 | Outpatient (CLI) | payer MEDICARE, BC, SELFPAY ==
--- NOTE | 2021-08-20 11:00 | DI.RAD_ITS ---
Exam(s) XR ANKLE RT COMPLETE EXAM: XR ANKLE RT COMPLETE CLINICAL HISTORY: right ankle pain. TECHNIQUE: 2D digital imaging was performed. COMPARISON: No exams were available for comparison FINDINGS: There is a nondisplaced oblique fracture of the distal fibula. No widening of the mortise. Medial a nd posterior malleoli appear unremarkable. Talar dome unremarkable. IMPRESSION: Nondisplaced oblique fracture in the distal fibula just above the malleolus. DATA REPOSITORY: RADIATION DOSE DELIVERED:
== END 2021-08-20 11:15 | disposition home or self-care (01) ==
LOC: DIORS 11:14
PROVIDERS: PCP Family Medicine; Referring Provider Family Medicine; Visit Provider Physician Assistant
DX: M25.571 Pain in right ankle and joints of right foot (principal); Z47.89 Encounter for other orthopedic aftercare; S82.831A Other fracture of upper and lower end of right fibula, initial encounter for closed fracture; X50.1XXA Overexertion from prolonged static or awkward postures, initial encounter
CPT/HCPCS: 99213; 73610

== ENCOUNTER → 2021-09-18 08:43 | Outpatient (BNVA) | payer MEDICARE, BC, SELFPAY | PROVIDERS: PCP Family Medicine; Referring Provider Family Medicine | DX: S82.831D Other fracture of upper and lower end of right fibula, subsequent encounter for closed fracture with routine healing (principal); X50.9XXD Other and unspecified overexertion or strenuous movements or postures, subsequent encounter; M54.31 Sciatica, right side | CPT/HCPCS: 99214 ==

== ENCOUNTER 2021-11-27 02:33 | Outpatient (CLI) | payer MEDICARE, BC, SELFPAY ==
[2021-11-27 12:56] LABS: CREATININE 0.7 mg/dL (0.55-1.02); Calculated LDL 119 mg/dL (<100); Cholesterol 228 mg/dL (<200); HDL Cholesterol 95 mg/dL (40-60); Potassium 4.2 mmol/L (3.5-5.1); Triglyceride 74 mg/dL (<150)
== END 2021-11-27 02:34 | disposition home or self-care (01) ==
LOC: LBO 02:33
PROVIDERS: PCP Family Medicine; Visit Provider Family Medicine
DX: I10 Essential (primary) hypertension (principal); E78.5 Hyperlipidemia, unspecified
CPT/HCPCS: 36415; 80061; 82565; 84132

== ENCOUNTER 2022-06-07 00:54 | Outpatient (CLI) | payer MEDICARE, BC, SELFPAY ==
--- NOTE | 2022-06-07 08:30 | DI.MAMMO_ITS ---
Exam(s) MAMMO SCREENING EXAM: MAMMO SCREENING CLINICAL HISTORY: SCREENING, Z12.31; FAMILY H/O MALIGNANT NEOPLASM OF BREAST, Z80.3 TECHNIQUE: Mammograms were interpreted according to the usual protocol including computer analysis w [employer] CAD system, tomosynthesis and C-view imaging. COMPARISON: FINDINGS: The breasts are of moderate density with fairly symmetrical distribution of fibroglandular tissue. N o dominant mass or clumped intramammary microcalcification is seen. Note is made of scattered high d ensity material on the skin in the axilla. Current examination is compared with previous examinations including March 2020 and there has been no gross interval change in appearance in comparison with previous studies. IMPRESSION: No specific evidence of malignancy at this time. Routine screening examinations are suggested at yea rly intervals in this age group due to the family history of breast carcinoma. BI-RADS Category 1 - Negative Breast Density - Category B - Scattered areas of fibroglandular density
== END 2022-06-07 01:14 ==
LOC: DI 00:54
PROVIDERS: PCP Family Medicine; Visit Provider Obstetrics & Gynecology
DX: Z12.31 Encounter for screening mammogram for malignant neoplasm of breast (principal); Z80.3 Family history of malignant neoplasm of breast
CPT/HCPCS: 77063; 77067

== ENCOUNTER 2022-11-14 15:03 | Outpatient (CLI) | payer MEDICARE, BC, SELFPAY ==
--- NOTE | 2022-11-14 14:45 | DI.RAD_ITS ---
Exam(s) XR HAND RT COMPLETE EXAM: XR HAND RT COMPLETE CLINICAL HISTORY: right hand pain. TECHNIQUE: 2D digital imaging was performed. Three views. COMPARISON: CR RIGHT HAND COMPLETE from 09/13/2013 FINDINGS: BONES: No acute fracture is present. No bony destructive lesion is seen. Metallic anchors seen in dis julián ulna. Mild deformity of the distal ulna. Severe positive ulnar variance. Mild degenerative gerry nges at radial carpal joint. JOINTS: No dislocation present. SOFT TISSUE: Normal. IMPRESSION: Degenerative and postsurgical changes. DATA REPOSITORY: RADIATION DOSE DELIVERED:
== END 2022-11-14 15:04 | disposition home or self-care (01) ==
LOC: DIORS 15:04
PROVIDERS: PCP Family Medicine; Referring Provider Family Medicine; Visit Provider Physician Assistant
DX: M20.021 Boutonniere deformity of right finger(s) (principal); M25.531 Pain in right wrist
CPT/HCPCS: 99213; 73130

== ENCOUNTER → 2022-12-23 10:54 | Outpatient (BNVA) | payer MEDICARE, BC, SELFPAY | PROVIDERS: PCP Family Medicine; Referring Provider Family Medicine; Visit Provider Student in an Organized Health Care Education/Training Program | DX: M20.021 Boutonniere deformity of right finger(s) (principal); S52.611D Displaced fracture of right ulna styloid process, subsequent encounter for closed fracture with routine healing; X58.XXXD Exposure to other specified factors, subsequent encounter | CPT/HCPCS: 99213 ==

== ENCOUNTER → 2023-01-20 13:57 | Outpatient (BNVA) | payer MEDICARE, BC, SELFPAY | PROVIDERS: PCP Family Medicine; Referring Provider Family Medicine | DX: M20.021 Boutonniere deformity of right finger(s) (principal) | CPT/HCPCS: 99213 ==

== ENCOUNTER 2023-03-03 02:29 | Outpatient (CLI) | payer MEDICARE, BC, SELFPAY ==
--- NOTE | 2023-03-03 08:15 | DI.MRI_ITS ---
Exam(s) MR UPPER EXTREMITY RT WO EXAM: MR UPPER EXTREMITY RT WO CLINICAL HISTORY: extensor tendon injury of RIGHT LITTLE [id number]. TECHNIQUE: Multiplanar multisequence MRI was performed. COMPARISON: Priors available for comparison. FINDINGS: BONES: There is artifact from an orthopedic screw in the distal ulna. There is mild edema seen in th e scaphoid and lunate. Small subchondral cysts are also noted in the scaphoid and lunate. JOINTS: The radiocarpal joint is unremarkable. There is fluid seen in the radiocarpal and carpal kalpesh nts. There is fluid in the distal radial ulnar joint. TENDONS: Flexors: There is a small amount of hyperintensities surrounding the extensor DJD minimi tendon. The re is also a 2nd hypointense linear area parallel to the extensor digiti minimi tendon. Extensors: Unremarkable. MUSCLES: Unremarkable. MEDIAN NERVE: Unremarkable on this noncontrast examination. ULNAR NERVE: Unremarkable on this noncontrast examination. SOFT TISSUES: Unremarkable. LIGAMENTS: Unremarkable. TRIANGULAR FIBROCARTILAGE: Not ideally visualized on coronal views due to patient positioning. It is not visualized. Given the postsurgical changes, tear cannot be excluded. The acuity is uncertain. OTHER: IMPRESSION: 1. Mild hyperintense signal seen around the extensor digiti minimi tendon which may represent a tenos ynovitis. 2. Effusions seen within the carpal joints and the distal radial ulnar joint. 3. Postsurgical changes in the distal ulna. The triangular fibrocartilage is not well visualized on this examination. This may be due to posttraumatic change but also patient positioning. 4. Changes in the scaphoid and lunate which may be degenerative in nature. DATA REPOSITORY:
== END 2023-03-03 02:49 ==
LOC: DI 02:29
PROVIDERS: PCP Family Medicine; Visit Provider Student in an Organized Health Care Education/Training Program
DX: M20.021 Boutonniere deformity of right finger(s) (principal); R90.89 Other abnormal findings on diagnostic imaging of central nervous system; Z98.890 Other specified postprocedural states
CPT/HCPCS: 73218

== ENCOUNTER → 2023-03-07 10:50 | Outpatient (BNVA) | payer MEDICARE, BC, SELFPAY | PROVIDERS: PCP Family Medicine; Referring Provider Family Medicine; Visit Provider Student in an Organized Health Care Education/Training Program | DX: M20.021 Boutonniere deformity of right finger(s) (principal) | CPT/HCPCS: 99213 ==

== ENCOUNTER 2023-05-27 12:43 | Outpatient (CLI) | payer MEDICARE, BC, SELFPAY ==
[2023-05-27 13:16] LABS: CREATININE 0.8 mg/dL (0.55-1.02); Calculated LDL 120 mg/dL (<100); Cholesterol 230 mg/dL (<200); Estimated GFR 78.24 (mL/min/1.73m2); HDL Cholesterol 100 mg/dL (40-60); TSH (W/Ref FT4) 1.15 uIU/mL (0.36-3.74); Triglyceride 50 mg/dL (<150); Vitamin B12 1074 pg/mL (193-986)
== END 2023-05-27 12:44 | disposition home or self-care (01) ==
LOC: LBO 12:44
PROVIDERS: PCP Family Medicine; Visit Provider Family Medicine
DX: D64.9 Anemia, unspecified (principal); E03.9 Hypothyroidism, unspecified; I10 Essential (primary) hypertension; E78.5 Hyperlipidemia, unspecified; R20.0 Anesthesia of skin
CPT/HCPCS: 36415; 80061; 82565; 82607; 84132; 84443

== ENCOUNTER → 2023-06-18 00:26 | Outpatient (CLI) | payer MEDICARE, BC, SELFPAY ==
--- NOTE | 2023-06-18 | DI.MAMMO_ITS ---
Exam(s) MAMMO SCREENING EXAM: MAMMO SCREENING CLINICAL HISTORY: SCREENING MAMMO FOR BREAST CANCER Z12.31 TECHNIQUE: Mammograms were interpreted according to the usual protocol including computer analysis w [employer] CAD system, tomosynthesis and C-view imaging. COMPARISON: 2012 through 2021 FINDINGS: The breasts are composed of scattered fibroglandular densities, Breast Density category B. No suspicious masses or suspicious microcalcifications are seen. No skin thickening or abnormal axillary lymph nodes are seen. There has been no significant change from prior exams. IMPRESSION: BI-RADS Category 1, Negative mammogram Yearly screening mammography is recommended. Breast Density - Category B, scattered fibroglandular densities. A negative radiographic report should not delay biopsy if a dominant or clinically suspicious mass is present. Up to ten percent of cancers are not identified on mammography. A negative report may reinforce clinical impression. Adenosis and dense breasts may obscure an underlying neoplasm. False positive reports average 6 to 10%. Patient will receive a letter notifying them of these results.
== END ==
PROVIDERS: PCP Family Medicine; Visit Provider Nurse Practitioner Women's Health
DX: Z12.31 Encounter for screening mammogram for malignant neoplasm of breast (principal)
CPT/HCPCS: 77063; 77067

== ENCOUNTER → 2023-10-23 12:30 | Outpatient (CLI) | payer MEDICARE, BC, SELFPAY ==
--- NOTE | 2023-10-23 15:06 | DI.RAD_ITS ---
Exam(s) XR LUMBAR SPINE COMPLETE EXAM: XR LUMBAR SPINE COMPLETE CLINICAL HISTORY: leg tingling, back pain, m54.9. TECHNIQUE: 2D digital imaging was performed. Five views. COMPARISON: CR CHEST 2 VIEWS PA,LAT from 06/23/2015 CR CHEST 2 VIEWS PA,LAT from 07/27/[address] ABDOMEN PELVIS W from 09/04/2020 CR XR DEXA BONE DENSITY W/WO SERA from 11/30/2020 FINDINGS: BONES: Partial lumbarization of S1 rudimentary disc.. No fracture or destructive lesion. Vertebral b zo heights are maintained. Severe facet degenerative changes at L5-S1 cause mild spondylolisthesis, stable from prior CT. DISKS: Narrowing of the right side of of the L3-4 and L 4 5 discs. ALIGNMENT: Mild levoscoliosis. SOFT TISSUE: Calcified fibroid. IMPRESSION: Facet degenerative changes cause mild spondylolisthesis at of S1. Degenerative disc changes and mild scoliosis. DATA REPOSITORY: RADIATION DOSE DELIVERED:
== END ==
PROVIDERS: PCP Family Medicine; Visit Provider Family Medicine
DX: M43.16 Spondylolisthesis, lumbar region
CPT/HCPCS: 72110

== ENCOUNTER 2024-01-06 05:43 | Outpatient (CLI) | payer MEDICARE, BC, SELFPAY ==
[2024-01-06 11:33] LABS: Calculated LDL 89 mg/dL (<100); Cholesterol 177 mg/dL (<200); HDL Cholesterol 74 mg/dL (40-60); Triglyceride 71 mg/dL (<150)
== END 2024-01-06 05:44 | disposition home or self-care (01) ==
PROVIDERS: PCP Family Medicine; Visit Provider Family Medicine
DX: E78.5 Hyperlipidemia, unspecified (principal)
CPT/HCPCS: 36415; 80061

== ENCOUNTER 2024-01-21 10:43 | Emergency (ER) | payer MEDICARE, BC, SELFPAY ==
[2024-01-21 10:45] VITALS: BP 163/89; PULSE 95; RESP 18; TEMP 37; O2SAT 97
--- NOTE | 2024-01-21 10:57 | W.ED.GENAD ---
Discharge Plan Disposition Patient Disposition: Home Condition: Stable Discharge Details Chief Complaint: Orthopedic Clinical Impression: Fracture of toe Primary Care Provider: Meño Cowan ED Provider: Marcelino Lorenz Home Meds and New Rx's Prescriptions: No Action aspirin [Adult Low Dose Aspirin] 81 mg tablet,delayed release (DR/EC) 81 mg PO DAILY famciclovir 500 mg tablet 500 mg PO Q8H PRN (Reason: herpes) Qty: 21 2RF Hold Instructions: Pt Stopped/Never Started losartan 100 mg tablet 100 mg PO DAILY Qty: 90 3RF multivitamin [Once Daily] 1 EACH tablet 1 tab PO DAILY docusate sodium [Colace] 100 MG capsule 100 mg PO DAILY Qty: 180 omega-3 fatty acids-fish oil 1 EACH capsule 1 cap PO DAILY lutein 20 MG tablet 20 mg PO DAILY omeprazole 40 mg capsule,delayed release(DR/EC) 40 mg PO BID Qty: 180 3RF hydrochlorothiazide 25 mg tablet 25 mg PO QAM Qty: 90 3RF amlodipine [Norvasc] 10 mg tablet 10 mg PO QAM Qty: 90 3RF Discharge Instructions Instructions: Toe Fracture (ED) Additional Instructions: Please spend some time out of boot each day, elevate foot, ice ibuprofen and/or acetaminophen as needed. Please return to the emergency department for any worsening symptoms HPI General Date/Time Provider Initiated Documentation: 01/21/24 10:52. HPI Narrative: 73-year-old female presents after stubbing her fourth toe on left foot at home yesterday. Pain with ambulation. Is able to bear weight Related Data Home Medications Medication Instructions Recorded Confirmed docusate sodium 100 mg capsule 100 mg PO DAILY #180 tab-caps 02/03/13 01/21/24 (Colace) multivitamin (Once Daily tablet) 1 tab PO DAILY 02/03/13 01/21/24 omega-3 fatty acids-fish oil 300 1 cap PO DAILY 02/03/13 01/21/24 mg-1,000 mg capsule lutein 20 mg tablet 20 mg PO DAILY 06/04/16 01/21/24 aspirin 81 mg tablet,delayed 81 mg PO DAILY 05/11/19 01/21/24 release (Adult Low Dose Aspirin) famciclovir 500 mg tablet 500 mg PO Q8H PRN herpes #21 tabs 06/04/23 01/21/24 losartan 100 mg tablet 100 mg PO DAILY #90 tabs 06/04/23 01/21/24 omeprazole 40 mg capsule,delayed 40 mg PO BID #180 caps 11/25/23 01/21/24 release amlodipine 10 mg tablet (Norvasc) 10 mg PO QAM #90 tab-caps 12/01/23 01/21/24 hydrochlorothiazide 25 mg tablet 25 mg PO QAM #90 tab-caps 12/01/23 01/21/24 Previous Rx's Medication Instructions Recorded famciclovir 500 mg tablet 500 mg PO Q8H PRN herpes #21 tabs 06/04/23 losartan 100 mg tablet 100 mg PO DAILY #90 tabs 06/04/23 omeprazole 40 mg capsule,delayed 40 mg PO BID #180 caps 11/25/23 release amlodipine 10 mg tablet (Norvasc) 10 mg PO QAM #90 tab-caps 12/01/23 hydrochlorothiazide 25 mg tablet 25 mg PO QAM #90 tab-caps 12/01/23 Allergies Allergy/AdvReac Type Severity Reaction Status Date / Time Tetanus Vaccines and Toxoid Allergy Intermediate SEVERE Verified 01/21/24 10:48 LOCAL REACTION atenolol AdvReac Intermediate RAYNAUD'S Verified 01/21/24 10:48 General Stated Complaint: Orthopedic RAPHAEL: 4 Review of Systems Narrative: Review of Systems Constitutional: negative Eyes: negative ENT: negative Cardiovascular: negative Respiratory: negative Gastrointestinal: negative : negative Musculoskeletal: No pain Skin: negative Neurologic: negative Psych: negative Exam Narrative Exam Narrative: Physical Examination General: alert, awake, cooperative, resting comfortably, no acute distress HEENT: normocephalic, atraumatic Neck: supple, trachea midline; full ROM Skin: no lesions, rashes or trauma appreciated Neuro: AAOx3, normal speech, moving all extremities Extremities: Discomfort to palpation left fourth digit, mild localized edema, DP pulse intact warm well-perfused extremity sensate mobile toes and foot no malleoli or tenderness Psych: Appropriate mood and affect Course Vital Signs Vital signs: Vital Signs Temperature 37.0 C 01/21/24 10:45 Pulse 95 H 01/21/24 10:45 Respiratory Rate 18 01/21/24 10:45 Blood Pressure 163/89 H 01/21/24 10:45 Pulse Oximetry 97 01/21/24 10:45 Temperature 37.0 C 01/21/24 10:45 Pulse 95 H 01/21/24 10:45 Respiratory Rate 18 01/21/24 10:45 Respiratory Effort Normal, Non-Labored 01/21/24 10:47 Blood Pressure 163/89 H 01/21/24 10:45 Blood Pressure Position Sitting 01/21/24 10:45 Pulse Oximetry 97 01/21/24 10:45 Oxygen Delivery Method Room Air 01/21/24 10:45 Oxygen Flow Rate 0 01/21/24 10:45 Pain Level 3 01/21/24 10:51 Medical Decision Making 73-year-old female presents after stubbing the fourth digit of her left foot yesterday at home, pain with ambulation able to bear weight, localized swelling to fourth digit, neurovascular exam of limb intact. Consider phalanx fracture versus dislocation versus contusion. No evidence of infection. Patient does not wish to have any analgesia or anti-inflammatory at this time. Will provide postsurgical shoe will obtain x-ray of foot. Likely home with home care instructions and return precautions 11: 53 evidence of proximal phalanx fracture fourth digit and possible proximal phalanx fracture fifth digit, nondisplaced. Percy taped toes, attempted to use surgical shoe for comfort however more uncomfortable for patient. Will provide air boot. Home care instructions and return precautions given Quality:SDOH Health Related Social Needs: No Data to Display PFSH All Active Problems Fracture of toe (Acute) Neuropathy, peripheral (Acute) Central slip extensor tendon injury (boutonniere) (Acute ~11/11/22) Right little finger Hand pain, right (Acute) Closed fracture of right distal fibula (Acute 08/02/21) Right anterior knee pain (Acute) Chronic knee pain (Acute) Hoarseness of voice (Acute) GERD without esophagitis (Acute) 05/[facility] Atrophic vaginitis (Acute 05/29/15) Back skin lesion (Acute 07/11/17) Hypertension (Acute) Osteoarthritis (Acute) RIGHT WRIST Esophagitis (Acute) Osteopenia (Acute) History of varicose vein ligation (Acute) Dysplasia of cervix (Acute) Depressive disorder (Acute) Esophagitis determined by biopsy (Acute) H/O esophagogastroduodenoscopy (Chronic ~06/2018) Medical History Atrophic vaginitis Back skin lesion Basal cell carcinoma, arm (~01/18/19) 01/18/19 [facility] [place]/L Change in voice Depressive disorder Dysplasia of cervix (uteri) Gastric polyp GERD (gastroesophageal reflux disease) Hypertension Laryngopharyngeal reflux (LPR) 05/25/18-[facility] Osteoarthritis of right wrist Osteopenia Surgical History Cervical Procedure CONE BX Fracture of right ulnar styloid excision of non-union fracture fragment of ulna styloid Dr. Bower DOS: 11/07/08 HERNIA REPAIR epigastric Hx of colonoscopy LTL (~1987) Normal colonoscopy (~08/2020) Tear of lateral meniscus of right knee S/P L knee arthroscopy: 08/07/2021 VEIN ABLATION greater saphenous vein Family History Mother , 79 Heart disease Macular degeneration Father , 62 Lung cancer Sister , 63 Lung cancer Maternal Grandfather Lung cancer Paternal Grandfather , 35 Septicemia AT YOUNG AGE Maternal Grandmother , 60 Essential hypertension Heart disease CHF Paternal Grandmother , 88 Stroke Sister No problems noted. Sister No problems noted. Son Essential hypertension Daughter No problems noted. Social History Smoking/Tobacco Use Status: Former Tobacco Use tobacco type: cigarettes Quit Date: 09/08/84 Tobacco: How many years used: 14 Second Hand Exposure: Yes Smoking risk assessment performed?: Yes Alcohol Intake: former Drug use: Current Sobriety Substance use type: marijuana Caregiver/Support person: No Household members: significant other Housing: house Communication Needs: None Do you need help understanding health information?: Never Pets and animals: Yes Pets and animals: dog(s) Sexually active: Yes Do you think of yourself as: straight/heterosexual Current gender identity: female What is your relationship status?: living with partner How often do you talk on the phone with friends or family?: twice per week How often do you get together with friends or relatives?: three or more times per week How often do you attend presybeterian or yazidi services?: decline to answer Do you belong to any clubs or organized social groups?: no Panel score (0-1 are the most socially isolated patients): 2 What type of physical activity do you participate in: walking, other Details: treadmill,rower and additional Details: treadmill and rowing Duration: 45-60 minutes/day Frequency: 5-6 times per week Bee/Voodoo: None Special bee needs: No Seatbelt use: always Helmet use: Yes Helmet use: always 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
--- NOTE | 2024-01-21 11:22 | DI.RAD_ITS ---
Exam(s) XR FOOT LT COMPLETE EXAM: XR FOOT LT COMPLETE CLINICAL HISTORY: jammed fourth toe, pain. TECHNIQUE: 2D digital imaging was performed of the left foot. Three images were obtained. AP, obli que and lateral views were obtained. COMPARISON: No exams were available for comparison FINDINGS: BONES: There is a nondisplaced fracture through the shaft of the proximal phalanx of the 4th toe. On the oblique view there is a question of a faint oblique lucency through the shaft of the proximal ph alanx of the 5th toe suspicious for nondisplaced fracture. There is an enthesophyte at the posterior calcaneus. No bony destructive lesion is seen. JOINTS: No dislocation present. SOFT TISSUE: Normal. IMPRESSION: 1. Nondisplaced fracture of the shaft of the proximal phalanx of the 4th toe. 2. Question of a nondisplaced fracture through the proximal phalanx of the 5th toe. DATA REPOSITORY: RADIATION DOSE DELIVERED:
[2024-01-21 12:04] VITALS: BP 163/89; PULSE 95; RESP 18; TEMP 37; O2SAT 97
== END 2024-01-21 12:07 | disposition home or self-care (01) ==
PROVIDERS: Emergency Provider Emergency Medicine; PCP Family Medicine
DX: S92.515A Nondisplaced fracture of proximal phalanx of left lesser toe(s), initial encounter for closed fracture (principal); W22.8XXA Striking against or struck by other objects, initial encounter
CPT/HCPCS: 99283; 73630

== ENCOUNTER 2024-03-14 11:34 | Emergency (ER) | payer MEDICARE, BC, SELFPAY ==
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
[2024-03-14 11:37] VITALS: BP 160/62; PULSE 85; RESP 18; TEMP 36.8; O2SAT 98
[2024-03-14 12:15] LABS: Abs Immature Grans 0.02 10^3/uL (0.0-0.06); Absolute Basophil Count 0.04 10^3/uL (0.0-0.2); Absolute Lymphocyte Count 1.44 10^3/uL (1.2-3.4); Absolute Monocyte Count 0.37 10^3/uL (0.1-0.8); Absolute Neutrophil Count 6.55 10^3/uL (1.2-6.7); Basophils % 0.5 %; Eosinophils % 1.2 %; HCT 35.1 % (36.0-46.0); HGB 12.5 g/dL (11.2-15.7); Immature Grans % 0.2 %; Lymphocytes % 16.9 %; MCHC 35.6 % (32.0-36.0); MCV 84 fL (80-95); MPV 8.7 fL (8.0-11.0); Monocytes % 4.3 %; Neutrophils % 76.9 %; Platelet Count 416 10^3/uL (130-400); RBC 4.17 10^6/uL (3.93-5.22); RDW 13.9 % (11.7-14.6); RDW-SD 42.5 fL; WBC 8.52 10^3/uL (4.4-10.8)
[2024-03-14 12:25] LABS: Anion Gap 9.2 mmol/L (3-11); BUN 9 mg/dL (7-18); CO2 28.8 mmol/L (21.0-32.0); CREATININE 0.7 mg/dL (0.55-1.02); Calcium 9.1 mg/dL (8.5-10.1); Chloride 99 mmol/L (98-107); Estimated GFR 91.26 (mL/min/1.73m2); Glucose 99 mg/dL (74-106); Potassium 4.2 mmol/L (3.5-5.1); Sodium 137 mmol/L (136-145)
[2024-03-14 12:48] LABS: D-Dimer 956 ng/mlFEU (<500)
--- NOTE | 2024-03-14 13:15 | DI.RAD_ITS ---
Exam(s) XR TIB/FIB LT EXAM: XR TIB/FIB LT CLINICAL HISTORY: L[place]y trauma. TECHNIQUE: 2D digital imaging was performed. COMPARISON: No exams were available for comparison FINDINGS: Two views. No evidence of fracture nor osseous lesions. No radiopaque foreign bodies. IMPRESSION: No acute osseous findings in the tibia-fibula. DATA REPOSITORY: RADIATION DOSE DELIVERED:
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
[2024-03-14] MEDS: Enoxaparin 100 MG/ML SYR SC (14:44)
[2024-03-14 14:47] VITALS: BP 148/66; PULSE 80; RESP 16; TEMP 36.8; O2SAT 98
--- NOTE | 2024-03-14 17:34 | NUR.NOTE ---
Request for left lower extremity duplex; left leg pain, faxed to DI for follow up with PCP, to be done FriMarch 15. Nursing Note:
== END 2024-03-14 14:49 | disposition home or self-care (01) ==
PROVIDERS: Emergency Provider Emergency Medicine; PCP Family Medicine
DX: R22.42 Localized swelling, mass and lump, left lower limb (principal); S80.11XA Contusion of right lower leg, initial encounter; I10 Essential (primary) hypertension; Z87.891 Personal history of nicotine dependence; V28.41XA Electric (assisted) bicycle driver injured in noncollision transport accident in traffic accident, initial encounter; Y92.488 Other paved roadways as the place of occurrence of the external cause; Y93.55 Activity, bike riding; Z79.82 Long term (current) use of aspirin
CPT/HCPCS: 36415; 80048; 93971; 96372; 99285; 73590; 85025; 85379; 99284; J1650

== ENCOUNTER → 2024-03-15 12:03 | Outpatient (CLI) | payer MEDICARE, BC, SELFPAY ==
--- NOTE | 2024-03-15 | DI.US_ITS ---
Exam(s) US LOWER EXTREMITY VENOUS LT EXAM: US LOWER EXTREMITY VENOUS LT CLINICAL HISTORY: LT LEG PAIN, M79.605. TECHNIQUE: Lower extremity venous ultrasound performed using grayscale, color-flow, and spectral Do ppler analysis. COMPARISON: No exams were available for comparison FINDINGS: The common femoral, femoral and popliteal veins demonstrate normal compressibility, augmentation, and color Doppler. The posterior tibial veins are patent. No saphenous vein thrombosis or other superfi cial venous thrombosis is seen. No hematoma or Trujillo's cyst is seen. IMPRESSION: Negative lower extremity ultrasound. No evidence of DVT. DATA REPOSITORY:
== END ==
PROVIDERS: PCP Family Medicine; Visit Provider Emergency Medicine
DX: M79.605 Pain in left leg (principal)
CPT/HCPCS: 93971

== ENCOUNTER → 2024-03-16 01:25 | Outpatient (CLI) | payer MEDICARE, BC, SELFPAY ==
--- NOTE | 2024-03-16 06:30 | DI.MRI_ITS ---
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 radiculopathy,SPONDYLOSIS, M47.816,G62.9,. TECHNIQUE: Multiplanar multisequence MRI of the Lumbar spine was performed. COMPARISON: CR XR LUMBAR SPINE COMPLETE from 10/23/2023 FINDINGS: Bones: The last intervertebral disc space is designated the L5/S1 level for the numbering purpose of this ex amination. The vertebral body heights are well maintained. Alignment: Unremarkable. The marrow signal characteristics are unremarkable. Cord: The conus tip ends at the T12 level. It is of normal size and signal intensity. T12-L1: No focal disc herniation is present. No central spinal canal stenosis.No neural foraminal st enosis. L1-2: No focal disc herniation is present. No central spinal canal stenosis.No neural foraminal sten osis. L2-3: Loss of disc height eccentric toward the right and asymmetric right-sided disc space narrowing and endplate osteophyte formation. Facet degenerative changes and ligamentous hypertrophy combine to produce ufrn-ox-gdihbnko central canal stenosis. No focal disc herniation is present. there is rig ht neural foraminal narrowing.. L3-4: Asymmetric disc space narrowing endplate osteophytes, eccentric toward the right. Mild facet d egenerative changes and ligamentous hypertrophy producing mild central canal stenosis. There is mild bilateral neural foraminal narrowing. L4-5: asymmetric loss of disc height eccentric toward the left. Broad-based disc bulging. Severe fa cet degenerative changes and ligamentous hypertrophy, producing severe central canal stenosis as well as severe left neural foraminal narrowing. There is mild right neural foraminal narrowing. There i s spondylolisthesis secondary to the facet degenerative changes. L5-S1: No focal disc herniation is present. No central spinal canal stenosis.No neural foraminal st enosis. The visualized SI joints and sacrum are unremarkable. Soft tissues: The paraspinal soft tissues are unremarkable. IMPRESSION: Degenerative disc changes and facet degenerative changes, greatest at L4-5 with there is severe centr al canal stenosis and bilateral neural foraminal narrowing. DATA REPOSITORY:
--- NOTE | 2024-03-16 07:15 | DI.RAD_ITS ---
Exam(s) XR HIP RT COMPLETE AP PELVIS EXAM: XR HIP RT COMPLETE AP PELVIS CLINICAL HISTORY: rt hip pain,m25.551. TECHNIQUE: 2D digital imaging was performed. Two views COMPARISON: No exams were available for comparison FINDINGS: BONES: No acute fracture is present. No bony destructive lesion is seen. JOINTS: No dislocation present. Hip joint spaces are maintained. Minimal acetabular spurring. Mil d degenerative changes of the SI joints SOFT TISSUE: Lucrecia uterine fibroid. IMPRESSION: Mild degenerative changes of the hips and SI joints. DATA REPOSITORY: RADIATION DOSE DELIVERED:
== END ==
PROVIDERS: PCP Family Medicine; Visit Provider Nurse Practitioner Family
DX: M47.816 Spondylosis without myelopathy or radiculopathy, lumbar region (principal); G62.9 Polyneuropathy, unspecified; M25.551 Pain in right hip; M48.061 Spinal stenosis, lumbar region without neurogenic claudication
CPT/HCPCS: 72148; 73502

== ENCOUNTER 2024-04-01 09:24 | Outpatient (CLI) | payer MEDICARE, BC, SELFPAY ==
[2024-04-05 13:38] LABS: Albumin 60.9 % (55.8-66.1); Albumin g/dL 4.1 g/dL (3.6-5.2); Total Protein 6.8 g/dL (6.3-8.2)
== END 2024-04-01 09:25 | disposition home or self-care (01) ==
LOC: LBO 04-12 09:24
PROVIDERS: PCP Family Medicine; Visit Provider Psychiatry & Neurology Neurology
DX: G62.9 Polyneuropathy, unspecified (principal)
CPT/HCPCS: 36415; 95885; 95887; 95908; 99215; 84165

== ENCOUNTER → 2024-04-01 13:44 | Outpatient (BNVA) | payer MEDICARE, BC, SELFPAY | PROVIDERS: PCP Family Medicine; Referring Provider Family Medicine; Visit Provider Psychiatry & Neurology Neurology | DX: G62.9 Polyneuropathy, unspecified (principal); R20.0 Anesthesia of skin; M48.061 Spinal stenosis, lumbar region without neurogenic claudication | CPT/HCPCS: 95885; 95887; 95908; 99215 ==

== ENCOUNTER 2024-04-15 12:51 | Outpatient (CLI) | payer MEDICARE, BC, SELFPAY ==
--- NOTE | 2024-04-15 12:45 | RT.EKG_ITS ---
APPROVED REPORT Exam: Resting ECG Reason for Exam: pre-op examination Patient Location: O HR:81 bpm ECG Measurements Heart Rate 81 AXIS KS 152 P 61 QRSd 92 QRS 20 QT 363 T 36 QTc 422 Conclusion Sinus rhythm...normal P axis, V-rate 50- 99 Baseline wander in lead(s) V3 Normal Electrocardiogram
== END 2024-04-15 12:52 | disposition home or self-care (01) ==
PROVIDERS: PCP Family Medicine; Visit Provider Nurse Practitioner Family
DX: Z01.818 Encounter for other preprocedural examination (principal)
CPT/HCPCS: 93010

== ENCOUNTER 2024-04-15 21:18 | Outpatient (CLI) | payer MEDICARE, BC, SELFPAY ==
[2024-04-15 14:27] LABS: Abs Immature Grans 0.02 10^3/uL (0.0-0.06); Absolute Basophil Count 0.03 10^3/uL (0.0-0.2); Absolute Eosinophil Count 0.08 10^3/uL (0.0-0.7); Absolute Monocyte Count 0.34 10^3/uL (0.1-0.8); Absolute Neutrophil Count 5.49 10^3/uL (1.2-6.7); Basophils % 0.4 %; HCT 34.4 % (36.0-46.0); HGB 12.4 g/dL (11.2-15.7); Immature Grans % 0.3 %; Lymphocytes % 22.2 %; MCH 29.5 pg (27.0-33.0); MCV 82 fL (80-95); MPV 8.5 fL (8.0-11.0); Monocytes % 4.4 %; Neutrophils % 71.7 %; Platelet Count 418 10^3/uL (130-400); RDW 13.6 % (11.7-14.6); RDW-SD 40.6 fL; WBC 7.66 10^3/uL (4.4-10.8)
[2024-04-15 15:10] LABS: ALT 32 U/L (14-59); AST 30 U/L (15-37); Albumin 3.8 g/dL (3.4-5.0); Alkaline Phosphatase 124 U/L (46-116); Anion Gap 6.2 mmol/L (3-11); BUN 4 mg/dL (7-18); Bilirubin, Total 0.74 mg/dL (0.2-1.0); CO2 30.8 mmol/L (21.0-32.0); CREATININE 0.8 mg/dL (0.55-1.02); Calcium 9.4 mg/dL (8.5-10.1); Chloride 95 mmol/L (98-107); Estimated GFR 77.75 (mL/min/1.73m2); Glucose 103 mg/dL (74-106); Sodium 132 mmol/L (136-145); Total Protein 7.1 g/dL (6.4-8.2)
== END 2024-04-15 21:19 | disposition home or self-care (01) ==
LOC: LBO 21:18
PROVIDERS: PCP Family Medicine; Visit Provider Nurse Practitioner Family
DX: Z01.818 Encounter for other preprocedural examination (principal); Z71.89 Other specified counseling
CPT/HCPCS: 36415; 80053; 85025

== ENCOUNTER 2024-04-15 22:32 | Outpatient (REF) | payer MEDICARE, BC, SELFPAY ==
[2024-04-15 21:42] LABS: Bilirubin Negative (Negative); Blood Negative (Negative); Clarity Clear (Clear); Glucose Negative (Negative); Ketones Negative (Negative); Leukocyte Esterase Negative (Negative); Nitrite Negative (Negative); Urobilinogen 0.2 mg/dL (Up to 0.2); pH 7.5 (5-8)
== END 2024-04-15 22:33 | disposition home or self-care (01) ==
LOC: LBN 22:32
PROVIDERS: PCP Family Medicine; Visit Provider Nurse Practitioner Family
DX: Z01.818 Encounter for other preprocedural examination (principal); Z71.89 Other specified counseling
CPT/HCPCS: 81003

== ENCOUNTER 2024-04-16 00:14 | Outpatient (CLI) | payer MEDICARE, BC, SELFPAY ==
--- NOTE | 2024-04-16 07:00 | DI.MRI_ITS ---
Exam(s) MR CERVICAL SPINE WO EXAM: MR CERVICAL SPINE WO CLINICAL HISTORY: ? myelopathy,NUMBNESS OF FOOT, R20.0 TECHNIQUE: Multiplanar multisequence MRI of the cervical spine was performed without intravenous con trast. COMPARISON: No prior cervical imaging exams were available for comparison FINDINGS: CERVICOMEDULLARY JUNCTION: Intact with no evidence of cerebellar tonsillar ectopia. No obvious abnor mality of the odontoid process. No evidence of Chiari 1 malformation. CERVICAL SPINAL CORD: There is no abnormal signal in the cervical spinal cord and no evidence of foca l cord atrophy nor focal cord swelling. OSSEOUS:There are no cervical fractures evident. No significant osseous lesions in the cervical vert ebrae. INDIVIDUAL LEVELS: C2-3: Normal disc height. No disc herniation nor canal stenosis evident at this level. Mild degener ative changes in the left facet joint. No degenerative changes in the right facet joint. No foramin al stenosis on the right side. Mild foraminal stenosis on the left side. C3-4: This level exhibits advanced chronic type disc space narrowing and anterior osseous lipping. P osteriorly there is mild retrolisthesis of C3 upon C4. There is also posterior annular bulging with the posterior annulus extending 3.5 mm behind the posterior bony margin of the vertebra. This signif icantly impresses upon the thecal sac and spinal cord at this level resulting in significant moderate central spinal canal stenosis at this level. There are mild-moderate degenerative changes in both f acet joints at this level. There is mild bilateral foraminal stenosis. C4-5: This level also exhibits advanced disc space narrowing and there is degenerative anterolisthesi s of C4 upon C5 with approximately 3-4 mm anterior slippage of C4 upon C5, this related to facet arth ropathy which is more prominent on the right side.There is central subligamentous annular bulging whi ch indents the thecal sac and anterior aspect of the spinal cord. There is mild central spinal canal stenosis at this level (less than is evident at C3-4). There is moderate-severe foraminal stenosis on the right side. There is mild foraminal stenosis on the left side at this level. C5-6: This level also exhibits chronic uniform disc space narrowing and anterior osseous lipping and there is symmetrical posterior osteophytic ridging and Luschka joint osteophytes bilaterally. There is mild-moderate central spinal canal stenosis. AP diameter of the canal at this level is 7 mm. No abnormal signal seen in the cord on T2 images. There are only mild degenerative changes in the facet joints at this level. There is moderate foraminal stenosis on the right side. Mild foraminal steno sis on the left side. C6-7: This level also exhibits advanced chronic disc space narrowing and posterior osseous ridging wi th the posterior cortex of C6 extending 3 mm posterior to the posterior cortex of C7. There is no di sc herniation but this bony finding does result in mild central spinal canal stenosis. AP measuremen t of the canal is 7.5 mm at this level. There are minimal degenerative changes in the facet joints. Minimal foraminal stenosis on the right side. Mild foraminal stenosis on the left side. C7-T1: This level exhibits preserved disc height but there is an element of degenerative anterolisthe sis of C7 upon T1 with 2 millimeters anterior slippage of C7 upon T1 related to bilateral significant facet arthropathy. There is no foraminal stenosis on the right side. Mild foraminal stenosis on th e left side. IMPRESSION: 1. Multilevel findings as described individually above. 2. The most significant central canal stenosis is at the C3-4 level where there is an element of retr olisthesis of C3 upon C4 and associated posterior annular bulging. There is also moderate bilateral foraminal stenosis at this level related to facet arthropathy. 3. Other multilevel findings as described individually above but with lesser amount of central canal stenosis at the other levels. There does not appear to be obvious abnormal signal within the cervical spinal cord on the T2 images and there is no evidence of syringomyelia. DATA REPOSITORY:
== END 2024-04-16 00:34 ==
LOC: DI 00:15
PROVIDERS: PCP Family Medicine; Visit Provider Psychiatry & Neurology Neurology
DX: M48.02 Spinal stenosis, cervical region (principal)
CPT/HCPCS: 72141

== ENCOUNTER 2024-04-16 13:24 | Outpatient (CLI) | payer MEDICARE, BC, SELFPAY ==
[2024-04-16 11:53] LABS: ALT 31 U/L (14-59); AST 30 U/L (15-37); Albumin 3.9 g/dL (3.4-5.0); Alkaline Phosphatase 126 U/L (46-116); Anion Gap 5.8 mmol/L (3-11); BUN 10 mg/dL (7-18); Bilirubin, Total 0.57 mg/dL (0.2-1.0); CO2 31.2 mmol/L (21.0-32.0); CREATININE 0.8 mg/dL (0.55-1.02); Calcium 9.1 mg/dL (8.5-10.1); Chloride 95 mmol/L (98-107); Estimated GFR 77.75 (mL/min/1.73m2); Glucose 93 mg/dL (74-106); Potassium 4.1 mmol/L (3.5-5.1); Sodium 132 mmol/L (136-145); Total Protein 7.4 g/dL (6.4-8.2)
[2024-04-16 11:56] LABS: Abs Immature Grans 0.01 10^3/uL (0.0-0.06); Absolute Basophil Count 0.04 10^3/uL (0.0-0.2); Absolute Eosinophil Count 0.08 10^3/uL (0.0-0.7); Absolute Lymphocyte Count 1.67 10^3/uL (1.2-3.4); Absolute Monocyte Count 0.33 10^3/uL (0.1-0.8); Absolute Neutrophil Count 4.26 10^3/uL (1.2-6.7); Basophils % 0.6 %; Eosinophils % 1.3 %; HCT 36.5 % (36.0-46.0); Immature Grans % 0.2 %; Lymphocytes % 26.1 %; MCH 29.5 pg (27.0-33.0); MCHC 35.6 % (32.0-36.0); MCV 83 fL (80-95); MPV 8.9 fL (8.0-11.0); Monocytes % 5.2 %; Neutrophils % 66.6 %; Platelet Count 441 10^3/uL (130-400); RBC 4.41 10^6/uL (3.93-5.22); RDW 13.4 % (11.7-14.6); RDW-SD 40.7 fL; WBC 6.39 10^3/uL (4.4-10.8)
== END 2024-04-16 13:25 | disposition home or self-care (01) ==
LOC: LBO 13:25
PROVIDERS: PCP Family Medicine; Visit Provider Nurse Practitioner Family
DX: Z01.818 Encounter for other preprocedural examination (principal); Z71.89 Other specified counseling
CPT/HCPCS: 36415; 80053; 72141; 85025

== ENCOUNTER 2024-04-22 04:26 | Outpatient (CLI) | payer MEDICARE, BC, SELFPAY ==
[2024-04-22 12:49] LABS: Abs Immature Grans 0.02 10^3/uL (0.0-0.06); Absolute Basophil Count 0.03 10^3/uL (0.0-0.2); Absolute Eosinophil Count 0.08 10^3/uL (0.0-0.7); Absolute Lymphocyte Count 1.28 10^3/uL (1.2-3.4); Absolute Monocyte Count 0.25 10^3/uL (0.1-0.8); Basophils % 0.5 %; Eosinophils % 1.3 %; HCT 34.7 % (36.0-46.0); HGB 12.1 g/dL (11.2-15.7); Immature Grans % 0.3 %; Lymphocytes % 21.5 %; MCH 29.4 pg (27.0-33.0); MCHC 34.9 % (32.0-36.0); MCV 84 fL (80-95); Monocytes % 4.2 %; Neutrophils % 72.2 %; Platelet Count 406 10^3/uL (130-400); RBC 4.11 10^6/uL (3.93-5.22); RDW 13.7 % (11.7-14.6); RDW-SD 42.4 fL; WBC 5.96 10^3/uL (4.4-10.8)
[2024-04-22 13:00] LABS: ALT 39 U/L (14-59); AST 31 U/L (15-37); Albumin 3.6 g/dL (3.4-5.0); Alkaline Phosphatase 108 U/L (46-116); Anion Gap 9.5 mmol/L (3-11); BUN 9 mg/dL (7-18); Bilirubin, Total 0.49 mg/dL (0.2-1.0); CO2 27.5 mmol/L (21.0-32.0); CREATININE 0.7 mg/dL (0.55-1.02); Calcium 9.2 mg/dL (8.5-10.1); Chloride 100 mmol/L (98-107); Estimated GFR 91.26 (mL/min/1.73m2); Glucose 101 mg/dL (74-106); Potassium 4.4 mmol/L (3.5-5.1); Sodium 137 mmol/L (136-145); Total Protein 6.9 g/dL (6.4-8.2)
== END 2024-04-22 04:27 | disposition home or self-care (01) ==
LOC: LOS 04:27
PROVIDERS: PCP Family Medicine; Visit Provider Nurse Practitioner Family
DX: Z01.818 Encounter for other preprocedural examination (principal)
CPT/HCPCS: 36415; 80053; 85025

== ENCOUNTER 2024-04-22 22:28 | Outpatient (REF) | payer MEDICARE, BC, SELFPAY ==
[2024-04-22 18:45] LABS: Bilirubin Negative (Negative); Blood Negative (Negative); Clarity Clear (Clear); Glucose Negative (Negative); Ketones Negative (Negative); Leukocyte Esterase Negative (Negative); Nitrite Negative (Negative); Specific Gravity 1.015 (1.005-1.025); Urobilinogen 0.2 mg/dL (Up to 0.2)
== END 2024-04-22 22:29 | disposition home or self-care (01) ==
LOC: LBN 22:28
PROVIDERS: PCP Family Medicine; Visit Provider Family Medicine
DX: Z01.818 Encounter for other preprocedural examination (principal)
CPT/HCPCS: 81003; 87086

== ENCOUNTER 2024-04-28 23:57 | Outpatient (REF) | payer MEDICARE, BC, SELFPAY ==
[2024-04-28 17:47] LABS: Bacteria Negative HPF (Negative); C & S Indicated? No; Casts Negative LPF (Negative); Crystals Negative HPF (Negative); Epithelial Cells Rare HPF (Negative); Mucus Negative (Negative); RBC 0-2 HPF (0-2); WBC Negative HPF (0-5)
== END 2024-04-28 23:58 | disposition home or self-care (01) ==
LOC: LBN 23:57
PROVIDERS: PCP Family Medicine; Visit Provider Family Medicine
DX: Z01.818 Encounter for other preprocedural examination (principal)
CPT/HCPCS: 81015

== ENCOUNTER 2024-05-06 14:55 | Outpatient (CLI) | payer MEDICARE, BC, SELFPAY ==
--- NOTE | 2024-05-06 16:00 | DI.RAD_ITS ---
Exam(s) XR CERVICAL SP PARDO TRAUMA 2-3V EXAM: XR CERVICAL SP PARDO TRAUMA 2-3V CLINICAL HISTORY: OSTEOARTHRITIS OF C SPINE W/ MYELOPATHY. M47.12. TECHNIQUE: 2D digital imaging was performed. Three views. COMPARISON: No exams were available for comparison FINDINGS: BONES: No fracture or destructive lesion. Severe degenerative changes from C3-4 through C6-7. Severe facet joint degenerative changes. ALIGNMENT: Straightening of the normal cervical lordosis secondary to severe degenerative changes. No subluxation with flexion or extension. Somewhat limited range of motion. SOFT TISSUE: Normal. The lung apices are clear. IMPRESSION: Severe degenerative changes. DATA REPOSITORY: RADIATION DOSE DELIVERED:
== END 2024-05-06 15:15 ==
LOC: DI 14:56
PROVIDERS: PCP Family Medicine; Visit Provider Neurological Surgery
DX: M47.12 Other spondylosis with myelopathy, cervical region (principal); M50.01 Cervical disc disorder with myelopathy, high cervical region; M50.021 Cervical disc disorder at C4-C5 level with myelopathy; M50.022 Cervical disc disorder at C5-C6 level with myelopathy; M50.023 Cervical disc disorder at C6-C7 level with myelopathy
CPT/HCPCS: 72040

== ENCOUNTER 2024-06-25 00:27 | Outpatient (CLI) | payer MEDICARE, BC, SELFPAY ==
--- NOTE | 2024-06-25 11:59 | DI.MAMMO_ITS ---
Exam(s) MAMMO SCREENING EXAM: MAMMO SCREENING CLINICAL HISTORY: screening,z12.39 TECHNIQUE: Bilateral full field digital CC and MLO mammographic images were obtained with 3D tomosyn thesis and utilizing computer aided detection (CAD). COMPARISON: Available for comparison. FINDINGS: Masses/Architectural Distortion: None seen. Microcalcifications: No suspicious pleomorphic-type are seen. Skin Thickening/Nipple Retraction: None. IMPRESSION: 1. No significant interval change with no specific features of malignancy noted. 2. Unless there is more urgent need, screening mammography is recommended, as per [place] [employer] guidelines. BI-RADS Category 1 - Negative Breast Density - Category B - Scattered areas of fibroglandular density Breast density category C or D implies that the patient has dense breast tissue. Dense breast tissue is very common and is not abnormal but dense breast tissue can make it harder to find cancer on a ma mmogram. Also, dense breast tissue may increase their breast cancer risk. This information about the result of the mammogram report was provided to the patient to raise their awareness. Use this report when you speak with the patient about their risks for breast cancer, which includes their family hist ory. At that time, you may recommend for more screening tests (Ultrasound or MRI) as they might be us eful based on their risk. A negative radiographic report should not delay biopsy if a dominant or clinically suspicious mass is present. Up to ten percent of cancers are not identified on mammography. A negative report may reinforce clinical impression. Adenosis and dense breasts may obscure an underlying neoplasm. False positive reports average 6 to 10%. Patient will receive a letter notifying them of these results.
== END 2024-06-25 00:47 ==
LOC: DI 00:27
PROVIDERS: PCP Family Medicine; Visit Provider Family Medicine
DX: Z12.31 Encounter for screening mammogram for malignant neoplasm of breast (principal)
CPT/HCPCS: 77063; 77067

== ENCOUNTER 2024-07-13 12:04 | Outpatient (CLI) | payer MEDICARE, BC, SELFPAY ==
--- NOTE | 2024-07-13 06:00 | DI.RAD_ITS ---
Exam(s) XR PAIN CLINIC LUMBAR SP 2V EXAM: XR PAIN CLINIC LUMBAR SP 2V CLINICAL HISTORY: DX:Lumbar Radiculopathy. TECHNIQUE: Fluoroscopy was provided for the referring physician for guidance with performing pain cl inic injection procedure. COMPARISON: No exams were available for comparison FINDINGS: Please see procedure note for details. Fluoro time: 54 seconds RADIATION DOSE DELIVERED: Ka,r=18.5 mGy
[2024-07-13 12:43] VITALS: BP 162/77; PULSE 87; RESP 18; TEMP 36.6; O2SAT 98
[2024-07-13 13:07] VITALS: O2SAT 98
[2024-07-13 13:10] VITALS: O2SAT 99
[2024-07-13 13:20] VITALS: O2SAT 99
[2024-07-13 13:30] VITALS: O2SAT 98
[2024-07-13] MEDS: Lidocaine 1% Pres-Free 5 ML VIAL IJ (13:37)
--- NOTE | 2024-07-13 14:34 | PDOC.PAIN ---
Date of service: 07/13/24 Time of Service: 14:43 Pain Managment Procedure Note Procedure Note Procedure Note: Lumbar Interlaminar Epidural Steroid Injection ? Location: L5-S1 ? Pre-procedure Diagnosis: M54.16- Radiculopathy, LUMBAR region ? Post-procedure Diagnosis:? The same as above ? Sedation:? ? None ? Medication: Depo-Medrol 80 mg, Omnipaque 1 mL (NONE USED) ? Estimated blood loss:? less than 2 cc ? Surgeon:? Greyson Lynch MD COMMENT: PROCEDURE ABORTED ? Procedure Detail:? The procedure and potential risks were explained to the patient and informed written consent was obtained. The patient was escorted to the procedure room and placed in the prone position. Pillows were utilized for proper positioning and comfort. Time out was performed in the procedure room with nursing staff confirming the patient's identity, procedure to be performed, allergies, and any blood thinning or anti-platelet medications.? The patient's neck and upper back was prepped with ChloraPrep and draped in a sterile fashion. Sterile technique was maintained throughout the procedure.? Sterile gloves were used, a face mask was worn, and new single dose vials of all medications were used with the top being swabbed with alcohol and given time to dry prior to withdrawal of medication. Lidocane 1% was used to anesthetize the skin.Using a 25-gauge 1.5 inch needle, 1% lidocaine was instilled into the superficial soft tissue overlying the targeted area to provide local anesthesia. With fluoroscopic guidance, a 17 -gauge Tuohy needle was advanced toward the interlaminar space of L5-S1. 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 At this point I attempted to enter the epidural space through the caudal route but was not able to access the sacral hiatus and thread a catheter. At this point I abandoned the procedure to speak with the radiologist. . COMMENT: I reviewed the imaging with Dr. 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 I told the patient that since she is planning to have surgery in September regardless of the outcome of an injection my feeling was did not make sense to try another approach which would be bilateral transforaminal steroid injection. I advised the patient to talk to Dr. Cowan regarding possibly some short-term pain medication such as gabapentin which could be started at 100 mg 3 times daily and titrated up to 300 mg 3 times daily and a Medrol Dosepak further upcoming Jermaine cruise and some as needed tramadol. I also emphasized that patient should make sure that when she sees Dr. Ferris he is aware of the discrepancy in numbering.
== END 2024-07-13 12:05 | disposition home or self-care (01) ==
LOC: PC 12:05
PROVIDERS: PCP Family Medicine; Visit Provider Anesthesiology Pain Medicine
DX: M54.16 Radiculopathy, lumbar region (principal); Z53.09 Procedure and treatment not carried out because of other contraindication
CPT/HCPCS: 62323; 00123; 72100; J2003

== ENCOUNTER 2024-07-27 14:26 | Outpatient (CLI) | payer MEDICARE, BC, SELFPAY ==
[2024-07-27 22:54] LABS: HIV-1/2 Ag & Ab Screen Negative (Negative)
[2024-07-28] LABS: Hepatitis C Ab w Rflx HCV PCR Negative (Negative)
== END 2024-07-27 14:27 | disposition home or self-care (01) ==
LOC: LBO 14:27
PROVIDERS: PCP Family Medicine; Visit Provider Family Medicine
DX: Z11.59 Encounter for screening for other viral diseases (principal); Z00.00 Encounter for general adult medical examination without abnormal findings
CPT/HCPCS: 36415; 86803; 87389

== ENCOUNTER 2024-09-07 10:47 | Outpatient (CLI) | payer MEDICARE, BC, SELFPAY | END 2024-09-07 10:48 | disposition home or self-care (01) | LOC: DI.CM 10:48 | PROVIDERS: PCP Family Medicine; Visit Provider Nurse Practitioner Family | CPT/HCPCS: 93010 ==

== ENCOUNTER 2024-09-07 11:43 | Outpatient (CLI) | payer MEDICARE, BC, SELFPAY ==
[2024-09-07 12:30] LABS: Abs Immature Grans 0.03 10^3/uL (0.0-0.06); Absolute Basophil Count 0.04 10^3/uL (0.0-0.2); Absolute Eosinophil Count 0.08 10^3/uL (0.0-0.7); Absolute Lymphocyte Count 1.54 10^3/uL (1.2-3.4); Absolute Monocyte Count 0.33 10^3/uL (0.1-0.8); Absolute Neutrophil Count 4.31 10^3/uL (1.2-6.7); Basophils % 0.6 %; Eosinophils % 1.3 %; HCT 36.2 % (36.0-46.0); HGB 12.4 g/dL (11.2-15.7); Immature Grans % 0.5 %; Lymphocytes % 24.3 %; MCH 28.1 pg (27.0-33.0); MCHC 34.3 % (32.0-36.0); MCV 82 fL (80-95); MPV 8.8 fL (8.0-11.0); Monocytes % 5.2 %; Neutrophils % 68.1 %; Platelet Count 434 10^3/uL (130-400); RBC 4.41 10^6/uL (3.93-5.22); RDW 14.2 % (11.7-14.6); RDW-SD 42.3 fL; WBC 6.33 10^3/uL (4.4-10.8)
[2024-09-07 12:43] LABS: Bilirubin Negative (Negative); Blood Negative (Negative); Clarity Clear (Clear); Glucose Negative (Negative); Ketones Negative (Negative); Leukocyte Esterase Negative (Negative); Nitrite Negative (Negative); Specific Gravity 1.015 (1.005-1.025); Urobilinogen 0.2 mg/dL (Up to 0.2); pH 6.5 (5-8)
[2024-09-07 12:56] LABS: ALT 39 U/L (14-59); AST 31 U/L (15-37); Albumin 3.7 g/dL (3.4-5.0); Alkaline Phosphatase 153 U/L (46-116); Anion Gap 4.8 mmol/L (3-11); BUN 11 mg/dL (7-18); CO2 32.2 mmol/L (21.0-32.0); CREATININE 0.8 mg/dL (0.55-1.02); Calcium 9.3 mg/dL (8.5-10.1); Chloride 101 mmol/L (98-107); Estimated GFR 77.75 (mL/min/1.73m2); Glucose 97 mg/dL (74-106); Potassium 3.9 mmol/L (3.5-5.1); Sodium 138 mmol/L (136-145); Total Protein 7.2 g/dL (6.4-8.2)
== END 2024-09-07 11:44 | disposition home or self-care (01) ==
LOC: LOS 11:43
PROVIDERS: PCP Family Medicine; Referring Provider Nurse Practitioner Family; Visit Provider Nurse Practitioner Family
DX: Z01.812 Encounter for preprocedural laboratory examination; Z01.818 Encounter for other preprocedural examination
CPT/HCPCS: 36415; 80053; 81003; 85025

== ENCOUNTER 2024-09-13 13:07 | Outpatient (REF) | payer MEDICARE, BC, SELFPAY ==
[2024-09-13 13:55] LABS: Bacteria Rare HPF (Negative); C & S Indicated? No; Casts Negative LPF (Negative); Crystals Negative HPF (Negative); Epithelial Cells Rare HPF (Negative); Mucus Negative (Negative); RBC 0-2 HPF (0-2); WBC 0-2 HPF (0-5)
== END 2024-09-13 13:08 | disposition home or self-care (01) ==
LOC: LBN 13:07
PROVIDERS: PCP Family Medicine; Visit Provider Physician Assistant Surgical
DX: M48.061 Spinal stenosis, lumbar region without neurogenic claudication (principal); M54.16 Radiculopathy, lumbar region; Z01.818 Encounter for other preprocedural examination
CPT/HCPCS: 81015

== ENCOUNTER 2024-10-01 11:22 | Outpatient (CLI) | payer MEDICARE, BC, SELFPAY ==
--- NOTE | 2024-10-01 | DI.CT_ITS ---
Exam(s) CT LUMBAR SPINE WO EXAM: CT LUMBAR SPINE WO CLINICAL HISTORY: PAIN RT LOWER EXTREMITY,M79.604,RECURRENT AFTER LUMBAR INSTRUEMENTED FUSION. TECHNIQUE: Imaging Protocol: Axial computed tomography images with coronal and sagittal reformatted images were created and reviewed COMPARISON: CR ABD FLAT UPRIGHT PA CHEST from 09/03/2008 CR XR LUMBAR SPINE COMPLETE from 10/23/2023 FINDINGS: Bones: There is lumbarization of S1. The vertebral body heights are well maintained. Mild spondylolisthesis at L5-S1. Laminectomy and posterior fusion hardware at this level. No fracture is seen. T12-L1: No disc herniations or bulges are present. L1-2: No disc herniations or bulges are present. L2-3: Minimal disc bulging. L3-4: Moderate concentric disc bulging. Loss of disc height eccentric toward the right. Vacuum phen omenon. Right neural foraminal narrowing. Mild ligamentous hypertrophy. Moderate central canal gloria nosis. L4-5: Wdix-hb-wduddcld broad-based disc bulging. Mild bilateral neural foraminal narrowing. Mild c entral canal stenosis. L5-S1: Artifact related to posterior fusion hardware. Laminectomy. Moderate loss of normal disc hei ght, vacuum phenomena and broad-based disc bulging. Facet degenerative changes. Severe bilateral ne ural foraminal narrowing. The visualized SI joints and sacrum are well maintained. Soft Tissues: Small amount of residual fluid posteriorly in the subcutaneous fat at the L5-S1 level. 3 cm calcified uterine fibroid. IMPRESSION: Degenerative disc changes and facet degenerative changes at L3-4 cause moderate central canal stenosi s and right neural foraminal narrowing. Status post laminectomy and posterior fusion hardware at L5-S1. Stable L5-S1 spondylolisthesis. Sev ere bilateral neural foraminal narrowing. RADIATION DOSE DELIVERED: Total DLP DATA REPOSITORY: All CT scans at this facility are submitted to the National Radiology Data Registry (NRDR) Dose Index Registry (DIR) with the [employer] (ACR). RADIATION OPTIMIZATION: All CT scans at this facility use at least one of these dose optimization te chniques: automated exposure control; mA and/or kV adjustment per patient size (includes targeted exa ms where dose is matched to clinical indication); or iterative reconstruction.
== END 2024-10-01 11:42 ==
LOC: DI 11:24
PROVIDERS: PCP Family Medicine; Visit Provider Neurological Surgery
DX: M48.062 Spinal stenosis, lumbar region with neurogenic claudication (principal)
CPT/HCPCS: 72131

== ENCOUNTER 2024-12-14 12:42 | Outpatient (REF) | payer MEDICARE, BC, SELFPAY ==
--- NOTE | 2024-12-14 10:30 | SKI_PTH ---
PATIENT: Leona Kc LOC: [facility] U#:[id number] AGE/SX: 73/F ROOM: RE12/14/[address]: Meño Cowan MD : [id number] BED: DIS: 12/14/2024 SPEC #: [id number] RECD: 12/14/24 12:55 STATUS: LEO REQ #: [id number] ELLIE: 12/14/24 10:[address]: Meño Cowan DEPT: Surgical Specimen RECD BY: Caty Lanza Tissues: 1 - SKIN BIOPSY(SHAVE/PUNCH) Procedures: SKIN LEVEL 4 Comments: [id number]
== END 2024-12-14 12:43 | disposition home or self-care (01) ==
LOC: LBN 12:42
PROVIDERS: PCP Family Medicine; Visit Provider Family Medicine
DX: C44.91 Basal cell carcinoma of skin, unspecified (principal)
CPT/HCPCS: 88305

== ENCOUNTER → 2025-01-24 08:36 | Outpatient (BNVA) | payer MEDICARE, BC, SELFPAY | PROVIDERS: PCP Family Medicine; Referring Provider Family Medicine; Visit Provider Psychiatry & Neurology Neurology | DX: R20.0 Anesthesia of skin (principal); M48.061 Spinal stenosis, lumbar region without neurogenic claudication; M25.551 Pain in right hip; G62.9 Polyneuropathy, unspecified; I10 Essential (primary) hypertension | CPT/HCPCS: 99215 ==

== ENCOUNTER 2025-03-18 11:19 | Outpatient (CLI) | payer MEDICARE, BC, SELFPAY ==
--- NOTE | 2025-03-18 10:15 | DI.RAD_ITS ---
Exam(s) XR HIP RT COMPLETE AP PELVIS EXAM: XR HIP RT COMPLETE AP PELVIS CLINICAL HISTORY: RIGHT HIP PAIN. TECHNIQUE: 2D digital imaging was performed. COMPARISON: CR XR HIP RT COMPLETE AP PELVIS from 03/16/2024 FINDINGS: 3 views No evidence of pelvic nor hip fracture. However, there has been significant progression of osteoarthritic degenerative change in the right hip which is now bone on bone narrowing of the joint space superiorly and degenerative subarticular cysts. Left hip remains unremarkable. Calcified uterine fibroid in the pelvis again noted. No osseous lesions. IMPRESSION: Significant progression of osteoarthritic degenerative narrowing of the right hip joint when compared to prior imaging of 1 year ago. DATA REPOSITORY: RADIATION DOSE DELIVERED:
== END 2025-03-18 11:20 | disposition home or self-care (01) ==
LOC: DIORS 11:20
PROVIDERS: PCP Family Medicine; Referring Provider Family Medicine; Visit Provider Physician Assistant
DX: M79.651 Pain in right thigh (principal); M16.11 Unilateral primary osteoarthritis, right hip; Z98.890 Other specified postprocedural states
CPT/HCPCS: 99214; 20611; 73502

== ENCOUNTER 2025-03-30 02:34 | Outpatient (CLI) | payer MEDICARE, BC, SELFPAY ==
[2025-03-30 10:53] LABS: HCT 35.8 % (36.0-46.0); HGB 12.1 g/dL (11.2-15.7); MCH 28.5 pg (27.0-33.0); MCHC 33.8 % (32.0-36.0); MCV 84 fL (80-95); MPV 9.1 fL (8.0-11.0); Platelet Count 420 10^3/uL (130-400); RBC 4.25 10^6/uL (3.93-5.22); RDW 14.9 % (11.7-14.6); RDW-SD 45.5 fL; WBC 5.37 10^3/uL (4.4-10.8)
[2025-03-30 11:21] LABS: Anion Gap 7.2 mmol/L (3-11); BUN 12 mg/dL (7-18); CO2 30.8 mmol/L (21.0-32.0); Calcium 9.3 mg/dL (8.5-10.1); Chloride 100 mmol/L (98-107); Estimated GFR 94.13 (mL/min/1.73m2); Glucose 101 mg/dL (74-106); Potassium 4.2 mmol/L (3.5-5.1); Sodium 138 mmol/L (136-145)
== END 2025-03-30 02:35 | disposition home or self-care (01) ==
PROVIDERS: PCP Family Medicine; Visit Provider Student in an Organized Health Care Education/Training Program
DX: M16.11 Unilateral primary osteoarthritis, right hip (principal); Z01.818 Encounter for other preprocedural examination
CPT/HCPCS: 36415; 80048; 85027

== ENCOUNTER 2025-04-12 06:00 | Day surgery (SDC) | payer MEDICARE, BC, SELFPAY ==
[2025-04-12] VITALS (34 sets, daily range): BP systolic 130–151; BP diastolic 53–77; PULSE 61–84; RESP 11–23; TEMP 36–37.1; O2SAT 80–99; BMI 33.2
[2025-04-12] MEDS: Acetaminophen 500 MG TAB 1000 MG PO (06:59)
[2025-04-12] MEDS: Celecoxib 200 MG CAP 400 MG PO (06:59)
--- NOTE | 2025-04-12 07:02 | PDOC.DSDIS_ITS ---
Date of service: 04/12/25 Discharge Plan Disposition Patient Disposition: Home Condition: Good Discharge Details Reason For Visit: Right hip DJD Attending Provider: Yinka Peoples Primary Care Provider: Meño Cowan Home Meds and New Rx's Prescriptions: New celecoxib [Celebrex] 200 mg capsule 200 mg PO BID PRNQty: 60 0RF Rx Instructions: Take one tablet twice daily for pain and inflammation aspirin 81 mg tablet,delayed release (DR/EC) 81 mg PO BID 30 Days Qty: 60 0RF tramadol 50 mg tablet 50 mg PO Q6H PRN (Reason: severe postoperative pain) Qty: 12 0RF Rx Instructions: Take one tablet up to every 6 hours as needed for severe pain acetaminophen 500 mg tablet 1,000 mg PO Q8H PRN Qty: 90 0RF Rx Instructions: Take two tablets up to every 8 hours as needed for pain dexamethasone 4 mg tablet 4 mg PO DAILY Qty: 2 0RF Rx Instructions: Take one tablet once daily for two days Continued multivitamin [Once Daily] 1 EACH tablet 1 tab PO DAILY docusate sodium [Colace] 100 MG capsule 100 mg PO DAILY Qty: 180 omeprazole 40 mg capsule,delayed release(DR/EC) 40 mg PO DAILY Qty: 180 3RF hydrochlorothiazide 25 mg tablet 25 mg PO QAM Qty: 90 3RF losartan 100 mg tablet See Rx Instructions .ROUTE .COMPLEX Qty: 90 3RF Dose Instruction: TAKE ONE TABLET BY MOUTH EVERY DAY Rx Instructions: TAKE ONE TABLET BY MOUTH EVERY DAY amlodipine [Norvasc] 10 mg tablet 10 mg PO QAM Qty: 90 3RF Discontinued tramadol 50 mg tablet 50 mg PO QHS PRN (Reason: back pain) Qty: 20 0RF Discharge Instructions Additional Instructions: Total Hip Discharge Instructions Activity: The most important activity is to walk. You should try to take short walks a few times a day. You have no restrictions on movement or positioning, but do not try to force what you do. You will find some stiffness and weakness with hip flexion (lifting your knee). Do not try to strengthen this too early, continue to practice walking and stairs and this will come. - Outpatient physical therapy can be helpful to help return you to a normal gait and improve your flexibility and strength. This can start around 2 weeks. For some patients, it?s not necessary. Usually this is determined at the time of discharge or at the first post-operative visit. - You should wear the KERI hose on both legs for 2 weeks. Dressing: Keep the surgical dressing in place for at least one week. After the first week it may be removed and replace with light gauze and tape or nothing. It may get wet after 3 days but avoid soaking the dressing. If it gets wet, just lightly pat dry. It is important to always keep some gauze between skin folds, especially when you are sitting. Spend some time with the wound exposed when you are lying flat as the incision does wrinkle onto itself. Medications: - You should take Tylenol and an anti-inflammatory Celebrex as your primary pain control medications. If the Celebrex is too expensive or not covered, please call the office for another alternative (Advil/Ibuprofen or Naproxen/Aleve). - You have been prescribed a stronger pain medication Tramadol for breakthrough pain, take as needed as prescribed. - You take a stomach acid reduction agent Omeprazole at baseline - continue with this medication to help reduce stomach acid and reflux. - You have also been prescribed Decadron to help with post-operative nausea and pain. You will take this for two days starting tomorrow. - You will be taking Aspirin 81mg twice a day for DVT prevention unless instructed otherwise. - If you have constipation you should take Colace or Miralax (both [id number]-hnd-sqprsxv). It takes most people 3-4 days to have a bowel movement. Follow-up: 2 weeks If you have any acute concerns or questions, please do not hesitate to contact the office at [phone]. You may contact Dr. Peoples with any questions after hours through the hospital at [phone] or on his cell phone at [phone]. Referrals: Yinka Peoples MD [ [facility] STAFF PHYSICIAN, Orthopaedic Surgical] Equipment/Supplies: Walker Activity:: Elevate Remove Dressings/Wound Care:: Do Not Remove Shower/Bathe:: Cover Diet:: As Tolerated Discharge Orders Discharge Orders: Discharge Order (Routine); Ordered 04/12/25 Ordered By: Jumana Yin
--- NOTE | 2025-04-12 07:03 | W.ANESPRE ---
General Info Date of Service Date Performed: 04/12/25 Height: 5 ft Weight: 77.1 kg Body Mass Index (BMI): 33.2 Surgical Procedure: Operation Date: 04/12/25 07:50 Proposed Procedure Side Surgeon p Hip Total Hip Anterior, ACTIS Right Yinka Peoples MD Meds Allergies and Home Medications Allergies Allergy/AdvReac Type Severity Reaction Status Date / Time Tetanus Vaccines and Toxoid Allergy Intermediate SEVERE Verified 04/12/25 06:37 LOCAL REACTION atenolol AdvReac Intermediate RAYNAUD'S Verified 04/12/25 06:37 Home Medication ?Medication ?Instructions ?Recorded docusate sodium 100 mg capsule 100 mg PO DAILY #180 tab-caps 02/03/13 (Colace) multivitamin (Once Daily tablet) 1 tab PO DAILY 02/03/13 omeprazole 40 mg capsule,delayed 40 mg PO DAILY #180 caps 02/25/24 release hydrochlorothiazide 25 mg tablet 25 mg PO QAM #90 tab-caps 12/28/24 losartan 100 mg tablet See Rx Instructions .Route 12/28/24 .COMPLEX #90 tabs amlodipine 10 mg tablet (Norvasc) 10 mg PO QAM #90 tab-caps 01/03/25 acetaminophen 500 mg tablet 1,000 mg (2 x 500 mg) PO Q8H PRN 04/12/25 pain #90 tabs aspirin 81 mg tablet,delayed 81 mg PO BID 30 days #60 tabs 04/12/25 release celecoxib 200 mg capsule (Celebrex) 200 mg PO BID PRN #60 caps 04/12/25 dexamethasone 4 mg tablet 4 mg PO DAILY #2 tabs 04/12/25 tramadol 50 mg tablet 50 mg PO Q6H PRN severe 04/12/25 postoperative pain #12 tabs Current Visit Medications: Current Medications Generic Name Dose Route Start Last Admin Trade Name Freq PRN Reason Stop Dose Admin Acetaminophen 1,000 mg 04/12/25 06:00 04/12/25 06:59 Acetaminophen 500 Mg Tab PO 04/12/25 23:59 1,000 mg PREOP SHEY Administration Celecoxib 400 mg 04/12/25 06:00 04/12/25 06:59 Celecoxib 200 Mg Cap PO 04/12/25 23:59 400 mg PREOP SHEY Administration Hydromorphone HCl 0.5 mg 04/12/25 07:00 Hydromorphone 2 Mg/Ml Syr IVP 05/12/25 06:59 Q2H PRN PRN Ringer's Solution 1,000 mls @ 80 mls/hr 04/12/25 06:00 IV 04/12/25 23:59 INFUSION SHEY Cefazolin Sodium/Dextrose 2 gm in 50 mls @ 100 mls/hr 04/12/25 06:00 Ancef Duplex IVPB 04/12/25 23:59 PREOP SHEY Tranexamic Acid/Sodium Chloride 1,000 mg in 100 mls @ 600 mls/hr 04/12/25 06:00 IVPB 04/12/25 23:59 PREOP SHEY Cefazolin Sodium/Dextrose 1 gm in 50 mls @ 100 mls/hr 04/12/25 08:00 Ancef Duplex IVPB 04/13/25 00:29 Q8H SHEY IV Miscellaneous Supplies 1 each 04/12/25 06:00 Iv Access IV 04/12/25 23:59 DIRECTED SHEY Sodium Chloride 0 ml 04/12/25 06:00 Normal Saline Flush 10 Ml Syr IV 04/12/25 23:59 PRN PRN Sodium Chloride 0 ml 04/12/25 06:00 Normal Saline 10 Ml Vial IJ 04/12/25 23:59 DIRECTED PRN Sterile Water 0 ml 04/12/25 06:00 Water,Injection,Sterile 10 Ml Vial IJ 04/12/25 23:59 DIRECTED PRN Tramadol HCl 50 mg 04/12/25 07:00 Tramadol 50 Mg Tab PO 05/12/25 06:59 Q4H PRN PRN Pain Tranexamic Acid 1,300 mg 04/12/25 07:00 Tranexamic Acid 650 Mg Tab PO 05/12/25 06:59 ONCE PRN postoperative PFSH Active Problems Active Problems: Problem Status Onset Code Degenerative joint disease of right hip Chronic M16.11 Right thigh pain Acute M79.651 Dysplastic skin lesion Acute L98.8 Lumbar spondylosis Acute M47.816 Mechanical low back pain Acute M54.59 Spinal stenosis, lumbar region with neurogenic claudication Acute M48.062 Lumbar stenosis Acute M48.061 Leg numbness Acute R20.0 Hip pain, right Acute M25.551 Degenerative joint disease (DJD) of lumbar spine Acute M47.816 Neuropathy, peripheral Acute G62.9 Central slip extensor tendon injury (boutonniere) Acute ~11/11/22 M20.029 Hand pain, right Acute M79.641 Closed fracture of right distal fibula Acute 08/02/21 S82.831A Right anterior knee pain Acute M25.561 Chronic knee pain Acute M25.569, G89.29 Depressive disorder Acute F32.9 Dysplasia of cervix Acute N87.9 History of varicose vein ligation Acute Z98.890, Z86.79 Osteopenia Acute M85.80 Esophagitis determined by biopsy Acute K20.9 H/O esophagogastroduodenoscopy Chronic ~06/2018 Z98.890 Esophagitis Acute K20.9 Osteoarthritis Acute M19.90 Hypertension Acute I10 Back skin lesion Acute 07/11/17 L98.9 Atrophic vaginitis Acute 05/29/15 N95.2 GERD without esophagitis Acute K21.9 Hoarseness of voice Acute R49.0 Medical History Medical History (Updated 04/12/25 @ 06:49 by Aspen Barrow) Fusion of lumbar spine 10/02; L4-5; Hui Barrow Change in voice GERD (gastroesophageal reflux disease) Basal cell carcinoma, [place] (~01/18/19) [place] [facility] [place] Gastric polyp Laryngopharyngeal reflux (LPR) 05/25/18[facility] Dysplasia of cervix (uteri) Depressive disorder Osteopenia Back skin lesion Atrophic vaginitis Hypertension Osteoarthritis of right wrist Surgical History Surgical History (Updated 04/12/25 @ 06:49 by Aspen Barrow) Hx of fusion of cervical spine C3-4; Hui Barrow, 05/2024 Hx of meniscectomy of right knee (08/07/21) Fracture of right ulnar styloid excision of non-union fracture fragment of ulna styloid Dr. Bower DOS: 11/07/08 Hx of colonoscopy VEIN ABLATION greater saphenous vein LTL (~1987) HERNIA REPAIR epigastric Cervical Procedure CONE BX Tobacco Smoking/Tobacco Use Status: Former Tobacco Use Passive smoking exposure: No Second hand exposure: Yes Alcohol Alcohol Intake: never Substance Use Substance use: Never Substance use type: does not use Vital Signs and Lab Results Vital Signs Most Recent Vital Signs in EMR: Most Recent Vital Signs Temp Pulse Resp BP Pulse Ox 37.1 C 84 16 143/70 H 96 04/12/25 06:10 04/12/25 06:10 04/12/25 06:10 04/12/25 06:10 04/12/25 06:10 Lab Results Complete Blood Count: WBC, (4.4-10.8) 5.37 10^3/uL 03/30/25, 10:22 RBC, (3.93-5.22) 4.25 10^6/uL 03/30/25, 10:22 Hgb, (11.2-15.7) 12.1 g/dL 03/30/25, 10:22 Hct, (36.0-46.0) 35.8 % L 03/30/25, 10:22 Plt Count, (130-400) 420 10^3/uL H 03/30/25, 10:22 Complete Metabolic Panel: Sodium, (136-145) 138 mmol/L 03/30/25, 10:22 Potassium, (3.5-5.1) 4.2 mmol/L 03/30/25, 10:22 Chloride, (98-107) 100 mmol/L 03/30/25, 10:22 Carbon Dioxide, (21.0-32.0) 30.8 mmol/L 03/30/25, 10:22 BUN, (7-18) 12 mg/dL 03/30/25, 10:22 Creatinine, (0.55-1.02) 0.6 mg/dL 03/30/25, 10:22 Est GFR (CKD-EPI 2020), (mL/min/1.73m2) 94.13 03/30/25, 10:22 Calcium, (8.5-10.1) 9.3 mg/dL 03/30/25, 10:22 Glucose, (74-106) 101 mg/dL 03/30/25, 10:22 Imaging and Studies Imaging and Studies Study information below may be from another EMR and interpreted by another provider. Please see original notes in EMR for more complete details. EKG Summary: apr 2024 Conclusion Sinus rhythm...normal P axis, V-rate 50- 99 Baseline wander in lead(s) V3 Normal Electrocardiogram Anesthesia Assessment and Plan Anesthesia History Personal History: No History of Anesthesia Complications Family History: No Family History of Anesthesia Complications Exercise Tolerance Exercise Tolerance: Metabolic Equivalents>4 Pertinent Negatives Pertinent Negatives: No Symptoms of GERD, No Major Cardiovascular Symptoms or Complaints, No Major Pulmonary Symptoms or Complaints and No History of CVA/TIA Cardiac & Pulmonary Exam Cardiac Exam: Normal S1/S2 Heart Sounds Pulmonary Exam: Clear Bilateral Breath Sounds Implantable Cardiac Device Does patient have a Pacemaker or an ICD?: No Airway Exam Known Difficult Airway: No Mallampati Class: 2 Mouth Opening: Normal (> 3cm) Thyromental Distance: Greater than 3 cm Neck Range of Motion: Full ROM Neck Circumference: Normal Teeth Condition: Normal Dentition (small chip right upper front tooth) ASA Classification ASA Score: ASA 2 Emergency Case?: No NPO Status NPO Status: NPO Clears >2 hours, Solids >8 hours Anesthesia Plan Resuscitation Status: Full Code Anesthesia Technique: General Anesthesia Airway Planned: Endotracheal Tube Monitors Used: Standard Monitors
[2025-04-12] MEDS: Lactated Ringers 1,000 ML 80 ML IV (07:15)
[2025-04-12] MEDS: ceFAZolin 2 GM/50 ML BAG IVPB (07:36)
--- NOTE | 2025-04-12 07:36 | ROE_ITS ---
Operative Note Operative Note PRE-OP DIAGNOSIS: Right Hip Osteoarthritis POST-OP DIAGNOSIS: same PROCEDURE: Right Anterior Total Hip Arthroplasty with Intraoperative Navigation SURGEON: Yinka Peoples TRANSMISSION AND PROTECTION ENGINEER: Jumana Yin ANESTHESIA TYPE: General LMA/ETT Refer to Anesthesia Record ESTIMATED BLOOD LOSS: 400 PATHOLOGY: none sent TOURNIQUET TIME: 0 COMPLICATIONS: None Patient was transported to: PACU Patient's condition: stable Implants: 1. Depuy Whitwell Acetabular Component, 48mm 2. Depuy Acetabular Liner, [id number] 3. Depuy Actis Standard Collared Femoral Stem, Size 6 4. Depuy Altrx Ceramic Femoral Head, Size 36+5mm Indications: I have seen Leona in clinic for symptoms of hip arthritis, confirmed with ra diographic findings. She has exhausted nonoperative methods and was having significant limitations in daily function and desired better function and less pain. I discussed the technical details of a hip replacement. I explained the risks of the procedure to include, but not limited to, bleeding, infection, pain, stiffness, fracture, damage to nerves and vessels, damage to muscles and tendons, loosening, instability, leg length inequality, need for repeat procedure, blood clot and cardiopulmonary demise. Despite these risks, Leona elected to proceed. Findings: There was significant signs of arthritis throughout the hip along with abundant synovitis and a large effusion. There was distention of the posterior joint space and abundant synovitis seen posteriorly. Procedure Description: Leona was greeted in the preoperative holding area where the correct side was identified and marked. The consent was reviewed with the patient and signed. The history and physical was updated. All questions were answered. She was taken back to the operating room. A general anesthestic was then adm inistered. The feet were wrapped with cast padding and Coban and then placed into the boot liners and then into the boots. Care was taken to protect the skin and make sure the heels were fully down and the boots were stable. The patient was then positioned onto the HANA table. Both legs were held in a neutral position. SCDs were applied. The patient was then slid down onto a peroneal post. Prophylactic antibiotics in the form of Cefazolin were administered. 1g of Tranxemic Acid was given intravenously within 30 minutes of incision. The right leg was then prepped with Chloraprep and draped in a standard fashion. A second prep with Chloraprep was performed prior to placement of a shower-curtain type drape with Iodine impregnated skin protection. A timeout to confirm correct identity, side and site, procedure, allergies, anesthesia, and medical concerns was performed. An obliquely oriented incision was made starting lateral to the ASIS and running distal over the Tensor Fascia Maryana (TFL) muscle belly toward the fibular head, approximately 10cm. The skin and soft tissue was dissected sharply, through Lane?s fascia, and to the fascia of the TFL. With the fascia and superior border of the IT band identified, the fascia was incised with a new knife just above any perforators from the IT band. The TFL muscle belly was bluntly dissected away from the fascia and moved laterally. The fat between TFL and rectus was identified to ensure the dissection was not within the TFL. Blunt dissection created space between abductors and the capsule and retractor was placed over the lateral femoral neck. The fibers of the rectus femoris tendon were identified and these were freed from the anterior capsule. A second cobra retractor was placed around the medial femoral neck. The TFL was further retracted laterally to show the deep fascia. Careful dissection through this layer identified three main crossing vessels of the lateral femoral circumflex. These were cauterized in multiple locations and then cut without any noticeable bleeding. The TFL was further released bluntly from the deep fascia to expose anterior hip capsule and fat The soft tissue orthopaedic retractor was then placed beneath the TFL and against sartorius and medial soft tissues to protect and retract the soft tissues. A T-capsulotomy was then performed starting at the superior lateral acetabulum and moving distally to the intertrochanteric ridge. These capsular flaps were tagged with a No. 1 Vicryl and elevated from within. The capsular flaps were released to the shoulder of the lateral neck and to the lesser trochanter to give excellent visualization of the proximal femur. A neck osteotomy was performed using an oscillating saw based on preoperative templates. This cut started in the shoulder and of the lateral neck and exited medially. The saw was at all times directed medially to avoid injury to the greater trochanter. Gross traction was applied to the leg and the osteotomy opened. The femoral head was removed with a corkscrew, making sure to protect the TFL on its exit. Traction was released after head removal. This was measured on the back table to determine the starting reamer size. Portions of the rectus obscuring visualization were minimally elevated off the superior acetabulum. An anterior retractor was placed over the anterior wall between capsule and labrum and attached to the Gripper retraction system. The femur was rotated to 90 degrees and medial capsule was fully released until the lesser trochanter was palpable and visible; the femur was returned to 30 degrees. There was abundant amount of synovitis seen throughout the knee worse posteriorly where there is distention of the posterior joint space and posterior capsule. A posterior retractor was placed similarly between capsule and labrum. Synovectomy was performed. This provided excellent visualization. The contents of the cotyloid fossa were removed with electrocautery and the labrum was removed with a knife. There was a notable floor osteophyte. There was significant chondromalacia of the superior acetabulum. Acetabular reaming began with a 44mm reamer. This first reaming was directed anterior to posterior and medial to get down to the true floor. This was inspected and reamed until the true floor was reached. The anterior retractor was then released and entry and exit was provided by traction on the capsular flaps. I then reamed sequentially up to a 48mm reamer where good fit was obtained. The larger reamers were oriented based on anatomical reference of the anterior and lateral wood to ensure proper abduction and anteversion. Positioning and size was confirmed with the fluoroscopy. A 48mm Depuy Whitwell acetabular component was selected. The acetabulum was reamed around the periphery with the selected acetabular size to prevent a rim fit. The deep tissues were irrigated. The acetabular component was then impacted in a position of about 40-45 degrees of abduction and 15-20 degrees of anteversion, using the patient?s anatomy as the ultimate landmark. Fluoroscopy was used to confirm this. There was excellent preschool aide of the acetabular component and the inserting handle was removed. The acetabular liner, Depuy 10x24mh polyethylene liner, was inserted and lined up with the tines of the acetabular component. There was no soft tissue interposition. The liner was then impacted into position and confirmed to be well-seated. A portion of the jaswant-articular cocktail was then injected around the acetabulum into the capsule and periosteum. This cocktail consisted of 123mg of Ropivacaine, 0.25mg of Epinephrine, 0.04mg of Clonidine, and 15mg of Ketorolac, diluted to 50cc. The leg was rotated to 120 degrees. Any remaining medial capsule was released until the lesser trochanter was easily palpable. A retractor was placed medially. The lateral capsule was further released into the shoulder to allow access to the greater trochanter. A Mcneal retractor was placed over the greater trochanter which allowed the trochanter to flip in front of the capsule for excellent exposure. The leg was brought down into maximal extension and 20 degrees of adduction while ensuring there was no impingement on the acetabulum. Any remnant capsule within the trochanter was released. Piriformis and obturator externis were identified and protected. There was excellent access to the proximal femur. The lateral neck remnant was removed with a rongeur. A blunt canal probe was used to identify the canal and trajectory for later broa esther. A box osteotome initiated the broach course. A small curved rasp and a curved curette were used to work laterally. Broaching then began with a starter Actis broach. This was inserted manually around the trochanter and into the canal before mallet blows. The broach was seated to a few millimeters below the cut level based on the neck cut and the preoperative template. Sequential broaching was continued with the Kodablese pneumatic broaching device until a tight fit was obtained with good rotational control of the femur. A trial standard neck was inserted along with a +1.5 trial head. The leg was brought out of extension and adduction and then reduced with traction and internal rotation. The leg was stable anteriorly in a position of 30 degrees of extension and 90 degrees of external rotation. Fluoroscopy was used to ensure there was no fracture and the stem was seated well. Leg lengths were checked with an AP pelvis and pelvic reference points. [employer] navigation system was used to confirm appropriate positioning and leg length and offset. Once content with the desired offset and leg lengths, the leg was brought back into extension, external rotation and adduction. The periosteum and surrounding tissue was injected with remaining portion of the jaswant-articular cocktail. The proximal femur was irrigated as well as the deep tissues. The Helijiauy Actis standard collared stem, size 6, was then manually inserted into the proximal femur making sure to control rotation. It was then malleted into position with light blows, giving breaks to allow bone expansion and decrease risk of fracture. The selected Depuy Altrx Ceramic Head, size 36+5mm, was then placed onto the clean and dry trunnion and secured with impaction onto the tapered fit. The leg was brought back out of extension and adduction and reduced with traction and internal rotation. Stability was confirmed with no shuck at 90 degrees of external rotation and 30 degrees of extension. No impingement through range of motion arc. Final x-ray images were obtained with fluoroscopy to confirm adequate positioning and no intraoperative fracture. The deep tissues were thoroughly irrigated with Surgiphor, betadine solution. This was allowed to sit in the wound for 3 minutes before being thoroughly irrigated out with normal saline. The capsule was then reapproximated with the previously placed sutures and the indirect head of the rectus was inspected and reapproximated with a #1 Vicryl. The TFL fascia was finally closed with a No. 2 Stratafix, barbed suture. Deep tissues were then reapproximated with 0 Vicryl and a running 2-0 Vicryl. The skin was closed with a running 4-0 Monocryl in a subcuticular fashion. This was reinforced with skin glue. A Mepilex silver dressing was applied. At the end of the case, all counts were correct. Leona was transferred to the hospital bed without difficulty and suffering no apparent complication. She has a good prognosis. Physical therapy will start today and without restrictions, weight-bearing as tolerated. Aspirin 81mg BID will be used for DVT prophylaxis. Date of Procedure: 04/12/25
--- NOTE | 2025-04-12 07:40 | W.PREOPHP ---
Assessment and Plan Assessment and plan (1) Degenerative joint disease of right hip: Status: Chronic Assessment and plan: Leona is a 74-year-old female who has severe arthritis about the right hip. She had a diagnostic only injection about the right hip which provided complete relief of symptoms for short period time. Given the severity of the arthritis and instrumentations and her daily function she would like to proceed with hip replacement. I had a long discussion in regards to surgical replacement of the hip. I reviewed the necessary time for rehabilitation following the procedure. Furthermore, I went over in detail the possible complications of hip replacement. These include but are not limited to bleeding, infection, pain, stiffness, weakness, damage to nerves (especially the lateral femoral cutaneous nerve), damage to vessels, damage to muscle and tendon, fracture, leg length inequality, wound healing complications, instability, dislocation, and blood clot. Questions were answered. I again expressed that this is a surgery to improve functional quality of life. After a review of the presented information and risks, Leona desired to proceed. History of Present Illness History of Present Illness Chief Complaint: Right hip arthritis Narrative: Shoshana is a 74-year-old female who I have seen previously for other musculoskeletal complaints. She presented to the office with acute and worsening right hip pain with severe arthritis. She was limited on a daily basis with all functional particularly any long distance walking or standing for any duration of time. Given these findings she desired to proceed with hip replacement. Review of Systems All systems reviewed & are unremarkable except as noted in HPI and below PFSH All Active Problems (Updated 04/12/25 @ 06:49 by Aspen Barrow) Degenerative joint disease of right hip (Chronic) Bupivacaine only intra-articular injection: 03/18/2025 Right thigh pain (Acute) Dysplastic skin lesion (Acute) Lumbar spondylosis (Acute) Mechanical low back pain (Acute) Spinal stenosis, lumbar region with neurogenic claudication (Acute) Lumbar stenosis (Acute) Leg numbness (Acute) Hip pain, right (Acute) Degenerative joint disease (DJD) of lumbar spine (Acute) Neuropathy, peripheral (Acute) Central slip extensor tendon injury (boutonniere) (Acute ~11/11/22) Right little finger Hand pain, right (Acute) Closed fracture of right distal fibula (Acute 08/02/21) Right anterior knee pain (Acute) Chronic knee pain (Acute) Depressive disorder (Acute) Dysplasia of cervix (Acute) History of varicose vein ligation (Acute) Osteopenia (Acute) Esophagitis determined by biopsy (Acute) H/O esophagogastroduodenoscopy (Chronic ~06/2018) Esophagitis (Acute) Osteoarthritis (Acute) RIGHT WRIST Hypertension (Acute) Back skin lesion (Acute 07/11/17) Atrophic vaginitis (Acute 05/29/15) GERD without esophagitis (Acute) 05/25/18-[facility] Hoarseness of voice (Acute) Medical History (Updated 04/12/25 @ 06:49 by Aspen Barrow) Fusion of lumbar spine 10/02; L4-5; Hui Barrow Change in voice GERD (gastroesophageal reflux disease) Basal cell carcinoma, arm (~01/18/19) 01/18/19 [facility] [place]; B/L Gastric polyp Laryngopharyngeal reflux (LPR) 05/25/18-[facility] Dysplasia of cervix (uteri) Depressive disorder Osteopenia Back skin lesion Atrophic vaginitis Hypertension Osteoarthritis of right wrist Surgical History (Updated 04/12/25 @ 06:49 by Aspen Barrow) Hx of fusion of cervical spine C3-4; Hui Barrow, 05/2024 Hx of meniscectomy of right knee (08/07/21) Fracture of right ulnar styloid excision of non-union fracture fragment of ulna styloid Dr. Bower DOS: 11/07/08 Hx of colonoscopy VEIN ABLATION greater saphenous vein LTL (~1987) HERNIA REPAIR epigastric Cervical Procedure CONE BX Family History Mother , 79 Heart disease Macular degeneration Father , 62 Lung cancer Sister , 63 Lung cancer Maternal Grandfather Lung cancer Paternal Grandfather , 35 Septicemia AT YOUNG AGE Maternal Grandmother , 60 Essential hypertension Heart disease CHF Paternal Grandmother , 88 Stroke Sister No problems noted. Sister No problems noted. Son Essential hypertension Daughter No problems noted. Social History Smoking/Tobacco Use Status: Former Tobacco Use tobacco type: cigarettes Quit Date: 09/08/84 Tobacco: How many years used: 18 Second Hand Exposure: Yes Smoking risk assessment performed?: Yes Alcohol Intake: never Drug use: Never Substance use type: does not use Caregiver/Support person: No Household members: significant other Housing: house Communication Needs: None Do you need help understanding health information?: Never Pets and animals: Yes Pets and animals: dog(s) Sexually active: Yes Do you think of yourself as: straight/heterosexual Current gender identity: female What is your relationship status?: living with partner How often do you talk on the phone with friends or family?: twice per week How often do you get together with friends or relatives?: three or more times per week How often do you attend latter day or jewish services?: decline to answer Do you belong to any clubs or organized social groups?: no Panel score (0-1 are the most socially isolated patients): 2 What type of physical activity do you participate in: walking, other Details: treadmill,rower and additional Details: treadmill and rowing Duration: 45-60 minutes/day Frequency: 5-6 times per week Bee/Anglican: None Special bee needs: No Seatbelt use: always Helmet use: Yes Helmet use: always Drive intox or ride w/intox driver's license examiner: No Do you feel safe at home: Yes Do you feel safe in your relationship?: Yes Meds Allergies and Home Medications Allergies Allergy/AdvReac Type Severity Reaction Status Date / Time Tetanus Vaccines and Toxoid Allergy Intermediate SEVERE Verified 04/12/25 06:37 LOCAL REACTION atenolol AdvReac Intermediate RAYNAUD'S Verified 04/12/25 06:37 Home Medications ?Medication ?Instructions ?Recorded ?Confirmed ?Type docusate sodium 100 mg capsule 100 mg PO DAILY #180 tab-caps 02/03/13 04/12/25 History (Colace) multivitamin (Once Daily tablet) 1 tab PO DAILY 02/03/13 04/12/25 History omeprazole 40 mg capsule,delayed 40 mg PO DAILY #180 caps 02/25/24 04/12/25 Rx release hydrochlorothiazide 25 mg tablet 25 mg PO QAM #90 tab-caps 12/28/24 04/12/25 Rx losartan 100 mg tablet See Rx Instructions .Route 12/28/24 04/12/25 Rx .COMPLEX #90 tabs amlodipine 10 mg tablet (Norvasc) 10 mg PO QAM #90 tab-caps 01/03/25 04/12/25 Rx acetaminophen 500 mg tablet 1,000 mg (2 x 500 mg) PO Q8H PRN 04/12/25 Rx pain #90 tabs aspirin 81 mg tablet,delayed 81 mg PO BID 30 days #60 tabs 04/12/25 Rx release celecoxib 200 mg capsule (Celebrex) 200 mg PO BID PRN #60 caps 04/12/25 Rx dexamethasone 4 mg tablet 4 mg PO DAILY #2 tabs 04/12/25 Rx tramadol 50 mg tablet 50 mg PO Q6H PRN severe 04/12/25 Rx postoperative pain #12 tabs Results Imaging Imaging Studies: X-ray of the right hip and pelvis shows severe arthritis about the right hip with complete loss of joint space, subchondral sclerosis, and cystic change of the acetabulum and the superior femoral head. Last Vital Signs Temp 37.1 C 04/12/25 06:10 Pulse 84 04/12/25 06:10 Resp 16 04/12/25 06:10 BP 143/70 H 04/12/25 06:10 Pulse Ox 96 04/12/25 06:10
[2025-04-12] MEDS: TRANEXAMIC ACID/SOD. CHL. 1,000 MG/100 ML BAG 600 MG IVPB (07:45)
--- NOTE | 2025-04-12 08:49 | DI.RAD_ITS ---
Exam(s) XR HIP RT IN OR EXAM: XR HIP RT IN OR CLINICAL HISTORY: degenerative joint disease TECHNIQUE: 2D and realtime digital imaging was performed. CONTRAST MATERIAL: Refer to procedure report. COMPARISON: CR XR HIP RT COMPLETE AP PELVIS from 03/18/2025 FINDINGS: Fluoroscopy was provided for Dr. Peoples during the performance of a right total hip arthroplasty. Please refer to the procedure report for complete details. Ka,r=2.7 mGy IMPRESSION: RADIATION DOSE DELIVERED: 0.0 0.0 0
[2025-04-12] MEDS: HYDROmorphone 2 MG/ML SYR IVP ×3 (09:15→09:45)
[2025-04-12] MEDS: fentaNYL 100 MCG/2 ML VIAL IVP (09:22)
--- NOTE | 2025-04-12 09:42 | W.ANESPOSTOP ---
Postoperative Evaluation Date, Time and Location Date Performed: 04/12/25 Time Performed: 09:38 Patient Location: PACU Vital Signs Most Recent Imported Vital Signs: Most Recent Vital Signs Temp Pulse Resp BP Pulse Ox 36.3 C L 63 23 130/53 L 98 04/12/25 09:35 04/12/25 09:35 04/12/25 09:35 04/12/25 09:35 04/12/25 09:35 Pain Score Most Recent Pain Score: Most Recent Pain Score Pain Level 5 04/12/25 09:35 Assessment Mental Status: Awake (Alert & Oriented to Patient Baseline) Airway and Respiratory Function: Patent airway with normal (patient baseline) respiratory exam Cardiovascular Function: Hemodynamically Stable Hydration Status: Adequately Hydrated Nausea & Vomiting: No Nausea or Vomiting Pain: Pain is tolerable per patient (PRN medication given see MAR) Peripheral Nerve Block: Patient did not receive a nerve block
[2025-04-12] MEDS: traMADol 50 MG TAB PO (10:50)
[2025-04-12] MEDS: Tranexamic Acid 650 MG TAB 1300 MG PO (11:54)
--- NOTE | 2025-04-12 12:50 | IN_ITS ---
PT Notes Visit Reasons: Right hip DJD Physical Therapy Day Surgery Initial Evaluation Date: 04/12/2025 Referring Doctor:Jumana Yin MANAG[employer] SALES CONSULTANT; Dr Peoples PT Orders: PT CONSULT: s/p Ortho Surgery Precautions: WBAT RLE; TEDs x 2 weeks Patient Profile/Admitting Diagnosis: Leona is a 74 yo female presenting s/p elective right JOSHUA under spinal anesthesia on 04/12/[address] Peoples.. Post op uncomplicated. PMHX: Degenerative joint disease of right hip (Chronic) Bupivacaine only intra-articular injection: 03/18/2025Right thigh pain (Acute) Dysplastic skin lesion (Acute) Lumbar spondylosis (Acute) Mechanical low back pain (Acute) Spinal stenosis, lumbar region with neurogenic claudication (Acute) Lumbar stenosis (Acute) Leg numbness (Acute) Hip pain, right (Acute) Degenerative joint disease (DJD) of lumbar spine (Acute) Neuropathy, peripheral (Acute) Central slip extensor tendon injury (boutonniere) (Acute ~11/11/22) Right little fingerHand pain, right (Acute) Closed fracture of right distal fibula (Acute 08/02/21) Right anterior knee pain (Acute) Chronic knee pain (Acute) Depressive disorder (Acute) Dysplasia of cervix (Acute) History of varicose vein ligation (Acute) Osteopenia (Acute) Esophagitis determined by biopsy (Acute) H/O esophagogastroduodenoscopy (Chronic ~06/2018) Esophagitis (Acute) Osteoarthritis (Acute) RIGHT WRIST Hypertension (Acute) Back skin lesion (Acute 07/11/17) Atrophic vaginitis (Acute 05/29/15) GERD without esophagitis (Acute) 05/25/1890-EFQ-ziZzohuwjymn of voice (Acute) Medical History (Updated 04/12/25 @ 06:49 by Aspen Barrow) Fusion of lumbar spine 10/02; L4-5; Hui BarrowChange in voice GERD (gastroesophageal reflux disease) Basal cell carcinoma, arm (~01/18/19) [place] [facility] [place] B/LGastric polyp Laryngopharyngeal reflux (LPR) 05/25/1884-CJM-nnYiyvotqhx of cervix (uteri) Depressive disorder Osteopenia Back skin lesion Atrophic vaginitis Hypertension Osteoarthritis of right wrist Surgical History (Updated 04/12/25 @ 06:49 by Aspen Barrow) Hx of fusion of cervical spine C3-4; Hui Odom Day, 05/2024Hx of meniscectomy of right knee (08/07/21) Fracture of right ulnar styloid excision of non-union fracture fragment of ulna styloid Dr. Bower DOS: 11/07/08Hx of colonoscopy VEIN ABLATION greater saphenous veinLTL (~1987) HERNIA REPAIR epigastricCervical Procedure CONE BX Social History/Home Situation: Pt resides with partner in 2 story home with 1 KALLIE . Pt has FOS to bedroom with 1 rail. Pt independent ambulation and ADLs, meal prep, med management, driving. Equipment Owned/DME: none; issued FWW Subjective: Pt reports she did not expect to have this much pain after surgery. She reports she will stay on the first floor initially. Objective: [] General Observation: female upright on stretcher, ice to right lateral hip Mental Status: A+Ox4 , able to follow instructions, agreeable to participate in PT Pain:right hip 3/10 at rest ; 5/10 with any active hip flexion ROM: [] BUE: WNL Right Lower Extremity: hip flexion 95 degrees, abduction: 10 degrees, knee and ankle WNL Left Lower Extremity: WNL Strength: [] Right Upper Extremity: 5/5 Left Upper Extremity:5/5 Right Lower Extremity: Hip flexion: 2+ /5; hip abduction: 2+/5; hip extension: 3-/5; knee extension: 3/5; knee flexion: 3- /5 ankle DF: 3 /5 ; ankle PF:3 /5 Left Lower Extremity: 5/5 Sensation: intact Bed Mobility/Transfers: [] Supine to sit CGA for Right leg Sit to stand SBA cues for hand placement Stand to sit SBA cues for hand placement Bed to chair SBA with FWW Gait: Amb with FWW with SBA reduced step length on right, foot flat at weight acceptance reduced knee flexion right during swing phase right. 100 feet Stairs:5 steps with rails CGA step to pattern with verbal cues for sequencing; 1 step with FWW CGA and assist to place FWW on the stair. Balance: [] Static Sitting: Normal Dynamic Sitting: good Static Standing: Good Dynamic Standing: fair Special Tests: [] Mobility Limitations Standardized Measure [] [facility] 6 clicks Basic Mobility Inpatient Short Form: [] Raw Score: 20 CMS Score: 35.83% Informed Consent/Education: Patient instructed in purpose of PT consult. Treatment: 25518 Packet containing JOSHUA exercise protocol has been given to patient. Education and training on initial set of 10 reps of exercises that can be done at home have been completed with patient. Assessment: Patient is a 74 yo female who presents with clinical signs and symptoms consistent with current/admitting diagnoses that have resulted to mobility limitations, gait instability, generalized weakness, and impairment of motor control as demonstrated by the following impairment level findings: 1. Decreased strength to right hip major muscle groups 2. Impaired standing balance 3. Limitation of joint range of motion in right hip 4. pain in right hip laterally and with hip flexion 5. impaired functional activity tolerance Impairments are contributing to the following functional limitations: 1. Inability to safely ambulate without assistive device 2. Increase completion time for mobility ADL performance 3. Increased fall risk 4. difficulty performing stairs without assistance Patient is assessed as a moderate complexity based on the following: History: 74-year-old female with impairment level findings, functional limitations, and past medical history as indicated above Examination: Demonstrable impairment in strength, balance, and mobility level with underlying impairments and functional limitations as documented above Presentation: evolving Decision Making: moderate Goals: N/A. PT evaluation and 1-2 treatment sessions only for functional mobility tra ining using recommended AD and for HEP instruction. Plan of Care/Treatment Plan: N/A. PT evaluation and 1-2 treatment session only for functional mobility training using recommended AD and for HEP instruction. DISCHARGE RECOMMENDATIONS: Home with HEP TREATMENT CODE/TIME: 30357, 36469/ [id number] Thank you for the opportunity to participate in the care of this patient. Mary Huber, PT [facility]
== END 2025-04-12 12:23 | disposition home or self-care (01) ==
PROVIDERS: PCP Family Medicine; Visit Provider Student in an Organized Health Care Education/Training Program
PROC: (CPT 27130; principal; 2025-04-12 07:30)
DX: M16.11 Unilateral primary osteoarthritis, right hip (principal); I10 Essential (primary) hypertension
CPT/HCPCS: 27130; 20985; 97110; 97162; 73501; C1776; J0690; J1100; J1171; J2003; J2250; J2401; J2405; J2704; J3010; J3475

== ENCOUNTER 2025-04-25 11:14 | Outpatient (CLI) | payer MEDICARE, BC, SELFPAY ==
--- NOTE | 2025-04-25 10:15 | DI.RAD_ITS ---
Exam(s) XR HIP RT COMPLETE AP PELVIS EXAM: XR HIP RT COMPLETE AP PELVIS CLINICAL HISTORY: 1ST POST OP S/P R JOSHUA. TECHNIQUE: 2D digital imaging was performed. COMPARISON: CR XR HIP RT COMPLETE AP PELVIS from 03/18/2025 FINDINGS: Two views There has been interval right hip arthroplasty. The recently placed right hip prosthesis appears satisfactory with no fracture or loosening. No evidence of osteomyelitis. The opposite-left hip remains unremarkable in appearance. Calcified structure in the pelvis again noted, probably uterine fibroid IMPRESSION: Stable satisfactory appearance of the recently placed right hip prosthesis. DATA REPOSITORY: RADIATION DOSE DELIVERED:
== END 2025-04-25 11:15 | disposition home or self-care (01) ==
LOC: DIORS 11:15
PROVIDERS: PCP Family Medicine; Visit Provider Physician Assistant
DX: Z47.1 Aftercare following joint replacement surgery (principal); Z96.641 Presence of right artificial hip joint
CPT/HCPCS: 99024; 73502

== ENCOUNTER → 2025-05-26 11:10 | Outpatient (BNVA) | payer MEDICARE, BC, SELFPAY | PROVIDERS: PCP Family Medicine; Referring Provider Family Medicine; Visit Provider Physician Assistant | DX: Z47.1 Aftercare following joint replacement surgery (principal); Z96.641 Presence of right artificial hip joint | CPT/HCPCS: 99024 ==

== ENCOUNTER 2025-06-09 13:55 | Outpatient (CLI) | payer MEDICARE, BC, SELFPAY ==
[2025-06-09 16:48] LABS: Vitamin B12 891 pg/mL (193-986)
== END 2025-06-09 13:56 | disposition home or self-care (01) ==
LOC: LOS 13:57
PROVIDERS: Absent Provider Family Medicine; PCP Family Medicine; Visit Provider Family Medicine
DX: R79.89 Other specified abnormal findings of blood chemistry (principal)
CPT/HCPCS: 36415; 82607

== ENCOUNTER → 2025-07-12 00:49 | Outpatient (CLI) | payer MEDICARE, BC, SELFPAY ==
--- NOTE | 2025-07-12 | DI.MRI_ITS ---
Exam(s) MR LUMBAR SPINE WO/W EXAM: MR LUMBAR SPINE WO/W CLINICAL HISTORY: NUMBNESS IN FEET, R20.0. TECHNIQUE: Multiplanar multisequence MRI of the Lumbar Spine was performed. CONTRAST MATERIAL: IV Contrast: 15 mL of Dotarem contrast administered. COMPARISON: MR MR LUMBAR SPINE WO from 03/16/[address] LUMBAR SPINE WO from 10/01/2024 FINDINGS: The precontrast T1 weighted fat suppressed images were not obtained. The patient is scheduled to return on 07/13/2025 for completion of the examination. Bones: The last intervertebral disc space is designated the L5/S1 level for the numbering purpose of this examination. The vertebral body heights are well maintained. There is a left convex lumbar scoliosis. There is lumbarization of S1. There is a grade 1 anterolisthesis of L5 on S1. There is posterior spinal fusion at L5-S1 with pedicle screws and posterior rods in place. There are mild endplate signal changes seen in the lumbar spine. Cord: The conus tip ends at the T12 level. It is of normal size and signal intensity. T12-L1: No disc herniations or bulges are present. No central spinal canal or neural foraminal stenosis. L1-2: No disc herniations or bulges are present. No central spinal canal or neural foraminal stenosis. L2-3: No disc herniations or bulges are present. No central spinal canal or neural foraminal stenosis. L3-4: There is a diffuse disc bulge. There are degenerative changes of the facets with hypertrophy of the ligamentum flavum. There is moderate narrowing of the central spinal canal. There is moderate right and mild left neural foraminal stenosis. L4-5: There is a diffuse disc bulge. There are degenerative changes of the facets and hypertrophy of the ligamentum flavum. There is yixn-so-qawxdkbk central spinal canal stenosis. There is rxwa-da-jxwvrqcr bilateral neural foraminal stenosis present. L5-S1: There is a diffuse disc bulge at this level. There is mild narrowing of the central spinal canal. There is moderate right neural foraminal stenosis. There is soft tissue extending into the left neural foramen causing marked left neural foraminal stenosis. This may be discal material. Soft tissues: The visualized SI joints and sacrum are well maintained. The paraspinal soft tissues are unremarkable. The postcontrast images will be discussed following the completion of the T1 fat-suppressed pre contrast images tomorrow on 07/13/2025. IMPRESSION: 1. This is an incomplete examination. The precontrast T1 fat-suppressed images will be performed on 07/13/2025. 2. L5-S1 grade 1 spondylolisthesis and posterior spinal fusion. 3. Multilevel central spinal canal and neural foraminal stenosis is noted. The findings are most marked from L3-4 through L5-S1. 4. There is lumbarization of S1 and there is a left convex lumbar scoliosis. DATA REPOSITORY:
[2025-07-12] MEDS: Gadoterate meglumine 20 ML SYRINGE IVP (12:44)
[2025-07-12] MEDS: Normal Saline Flush 10 ML SYR IVP (12:44)
== END ==
LOC: DI 00:49
PROVIDERS: PCP Family Medicine; Visit Provider Nurse Practitioner
DX: M43.16 Spondylolisthesis, lumbar region (principal)
CPT/HCPCS: 72158

== ENCOUNTER 2025-08-20 22:12 | Inpatient (IN) | payer MEDICARE, BC, SELFPAY ==
[2025-08-20] VITALS (16 sets, daily range): BP systolic 141–180; BP diastolic 68–102; PULSE 90–111; TEMP 37; O2SAT 94–99
--- NOTE | 2025-08-20 22:35 | DI.CT_ITS ---
Exam(s) CT ABDOMEN PELVIS W EXAM: CT ABDOMEN PELVIS W CLINICAL HISTORY: periumbilical abd pain, hx hernia. TECHNIQUE: Imaging Protocol: Axial computed tomography images with coronal and sagittal reformatted images were created and reviewed CONTRAST MATERIAL: Intravenous: Omnipaque 350 Contrast volume:75 ml Oral: no COMPARISON: CT CT ABDOMEN PELVIS W from 09/04/2020 FINDINGS: ABDOMEN and PELVIS: Lung Bases: No acute findings. Liver: Normal density. No suspicious mass. Gallbladder and biliary tract: No radiodense calculus. No wall thickening or pericholecystic fluid. No biliary dilation. Pancreas: Normal density. No abnormal calcifications or inflammatory process. No evidence of mass. Spleen: Normal. Kidneys: Normal size, contour and axis. No radiodense stones. No obstructive uropathy. No suspicious masses seen. Adrenal glands: No masses seen. Vasculature: Abdominal aorta non-dilated. Soft tissues: Unremarkable. Bladder: Nearly empty, not well evaluated. Bowel: There is abnormal dilatation of loops of jejunum also showing fecalization extending from the upper through lower abdomen, greater on the left side. Distal small bowel loops are decompressed. There appears to be a transition point in the left lower quadrant. No bowel wall thickening. Appendix normal. There is a large amount of stool noted throughout the colon. Peritoneal cavity: No ascites. No focal collection. No mesenteric inflammatory response. No free air. Bones: Right hip prosthesis. Postsurgical changes with hardware in the lower lumbar spine. Scoliosis and degenerative disc changes also present. Reproductive organs: Calcified uterine fibroids. Lymph nodes: No pathologically enlarged lymph nodes. IMPRESSION:: Findings consistent with jejunal obstruction with transition point in the left lower quadrant. No evidence of perforation. A large amount of stool is noted throughout the colon. The preliminary [facility] report was reviewed. RADIATION DOSE DELIVERED: Total DLP DATA REPOSITORY: All CT scans at this facility are submitted to the National Radiology Data Registry (NRDR) Dose Index Registry (DIR) with the [employer] (ACR). RADIATION OPTIMIZATION: All CT scans at this facility use at least one of these dose optimization techniques: automated exposure control; mA and/or kV adjustment per patient size (includes targeted exams where dose is matched to clinical indication); or iterative reconstruction.
[2025-08-20] MEDS: ACETAMINOPHEN 1,000 MG/100 ML BAG 400 MG IVPB (22:52)
[2025-08-20] MEDS: Ondansetron 4 MG/2 ML VIAL IVP (22:53)
[2025-08-20] MEDS: Ketorolac 15 MG/ML VIAL IVP (22:53)
[2025-08-20 23:00] LABS: Abs Immature Grans 0.03 10^3/uL (0.0-0.06); HCT 32.9 % (36.0-46.0); HGB 11.7 g/dL (11.2-15.7); Immature Grans % 0.3 %; MCH 28.0 pg (27.0-33.0); MCHC 35.6 % (32.0-36.0); MCV 79 fL (80-95); MPV 8.7 fL (8.0-11.0); Platelet Count 363 10^3/uL (130-400); RBC 4.18 10^6/uL (3.93-5.22); RDW 15.2 % (11.7-14.6); RDW-SD 43.7 fL; WBC 11.85 10^3/uL (4.4-10.8)
--- NOTE | 2025-08-20 23:00 | RT.EKG_ITS ---
APPROVED REPORT Exam: Resting ECG Reason for Exam: N/V Patient Location: E HR:101 bpm ECG Measurements Heart Rate 101 AXIS HI 185 P 51 QRSd 92 QRS 21 QT 343 T 178 QTc 444 Conclusion Sinus tachycardia...rate> 99 Repol abnrm suggests ischemia, anterolateral...ST dep, T neg, I aVL V2-V6 no ST segment or T wave abnormalities to suggest occlusive OR
[2025-08-20] MEDS: Omnipaque 350 MG/ML 100 ML BTL IJ (23:02)
[2025-08-20] MEDS: Normal Saline Flush 10 ML SYR IVP (23:02)
[2025-08-20] MEDS: Normal Saline - Diluent 50 ML VIAL IJ (23:02)
[2025-08-20 23:13] LABS: Glucose Negative (Negative)
[2025-08-20 23:16] LABS: Lipase 40 U/L (<53); Magnesium 1.8 mg/dL (1.6-2.6)
[2025-08-20 23:22] LABS: ALT 21 U/L (10-49); AST 37 U/L (<34); Albumin 4.5 g/dL (3.2-5.0); Alkaline Phosphatase 88 U/L (46-116); Anion Gap 10.3 mmol/L (3-11); BUN 9 mg/dL (9-23); Bilirubin, Total 0.8 mg/dL (0.2-1.2); CO2 28.8 mmol/L (20.0-31.0); Calcium 9.2 mg/dL (8.3-10.6); Chloride 96 mmol/L (98-107); Glucose 111 mg/dL (74-106); Potassium 3.0 mmol/L (3.5-5.1); Sodium 135 mmol/L (136-145); Total Protein 7.1 g/dL (5.7-8.2)
[2025-08-20 23:30] LABS: Lab Add On Test DONE
--- NOTE | 2025-08-20 23:39 | DI.[facility]_ITS ---
PROCEDURE INFORMATION: Exam: CT Abdomen And Pelvis With Contrast Exam date and time: 08/20/2025 10:59 PM Age: 74 years old Clinical indication: Abdominal pain; Periumbilical; Prior surgery; Surgery date: 6+ months; Surgery type: H/o hernia w repair. Hip replacement, spinal surg TECHNIQUE: Imaging protocol: Computed tomography of the abdomen and pelvis with contrast. Contrast material: OMNI 350; Contrast volume: 75 ml; Contrast route: INTRAVENOUS (IV); COMPARISON: CT ABDOMEN PELVIS W 09/04/2020 10:15 AM FINDINGS: Lungs: Lung bases are clear as visualized. Heart: Base of heart is unremarkable as visualized. Liver: Benign hepatic cyst at the posterior right hepatic lobe. Gallbladder and biliary ducts: Normal. No calcified stones. No ductal dilation. Pancreas: Normal. No ductal dilation. Spleen: Normal. No splenomegaly. Adrenal glands: Normal. No mass. Kidneys and ureters: Left extrarenal pelvis. Stomach and bowel: Prominent colonic stool burden. Dilated and fecalized loops of small bowel in the pelvis. Bowel reaches up to 3 cm. Possible focal transition in the left lower quadrant (series 8, image 52). Prominent colonic stool burden. Appendix: No evidence of appendicitis. Intraperitoneal space: Unremarkable. No free air. No significant fluid collection. Vasculature: Moderate atherosclerotic disease of the abdomen. Multiple pelvic phleboliths are seen. Lymph nodes: Unremarkable. No enlarged lymph nodes. Urinary bladder: Urinary bladder is decompressed. Reproductive: Calcified fibroids of the uterus. Bones/joints: Right total hip arthroplasty, incompletely visualized. Posterior fusion and decompression changes of the lower lumbar spine. Bones are demineralized. Soft tissues: Unremarkable. IMPRESSION: 1. Small bowel obstruction with focal transition point suspected in the left lower quadrant. 2. Patient appears constipated. Dictated and Authenticated by: Aureliano Giron MD. Orderin Willis Hammond MD
[2025-08-20] MEDS: POTASSIUM CHLORIDE 20 MEQ/100 ML BAG 50 MEQ IV INF (23:41)
--- NOTE | 2025-08-20 23:44 | ED.GENADUL_ITS ---
Discharge Plan Disposition Patient Disposition: Admit to [facility] Condition: Serious Discharge Details Clinical Impression: Small bowel obstruction Primary Care Provider: Meño Cowan ED Provider: Stephany Pedro Home Meds and New Rx's Prescriptions: No Action valacyclovir 500 mg tablet 1,000 mg PO Q3D PRN Patient Comments: TAKE TWO TABLETS BY MOUTH EVERY DAY FOR 3 DAYS multivitamin [Once Daily] 1 EACH tablet 1 tab PO DAILY docusate sodium [Colace] 100 MG capsule 100 mg PO DAILY Qty: 180 hydrochlorothiazide 25 mg tablet 25 mg PO QAM Qty: 90 3RF losartan 100 mg tablet See Rx Instructions .ROUTE .COMPLEX Qty: 90 3RF Dose Instruction: TAKE ONE TABLET BY MOUTH EVERY DAY Rx Instructions: TAKE ONE TABLET BY MOUTH EVERY DAY amlodipine [Norvasc] 10 mg tablet 10 mg PO QAM Qty: 90 3RF omeprazole 40 mg capsule,delayed release(DR/EC) 40 mg PO DAILY Qty: 180 3RF tramadol 50 mg tablet 50 mg PO QHS PRN (Reason: pain/sleep) Qty: 30 2RF acetaminophen 500 mg tablet 1,000 mg PO Q8H PRN Qty: 90 0RF Rx Instructions: Take two tablets up to every 8 hours as needed for pain HPI General Mode of arrival: ambulatory . Date/Time Provider Initiated Documentation: 08/20/25 22:18 . Limitations to Documentation: no limitations . Information obtained by: patient and old records reviewed . HPI Narrative: 74yo F with hx HTN, GERD, small abdominal hernia per pt, presenting with abdominal pain and vomiting. Symptoms started around 3pm, dull/achy pain 3/10 with some more severe sharp cramping pain that comes in waves. Located in the periumbilical area. Has vomited 3-4 times with this, nonbloody nonbiliuous. Last bowel movement two days ago, normal. Fewer bowel movements since starting GLP-1 medication. No lower abdominal pain, dysuria, fevers, chills, rash, chest pain, shortness of breath, or other concerns. Related Data Home Medications ?Medication ?Instructions ?Recorded ?Confirmed docusate sodium 100 mg capsule 100 mg PO DAILY #180 ta b-caps 02/03/13 08/20/25 (Colace) multivitamin (Once Daily tablet) 1 tab PO DAILY 08/20/25 hydrochlorothiazide 25 mg tablet 25 mg PO QAM #90 tab- caps 12/28/24 08/20/25 losartan 100 mg tablet See Rx Instructions .Route 0 12/28/24 08/20/25 .COMPLEX #90 tabs amlodipine 10 mg tablet (Norvasc) 10 mg PO QAM #90 tab -caps 01/03/25 08/20/25 acetaminophen 500 mg tablet 1,000 mg (2 x 500 mg) PO Q 8H PRN 04/12/25 08/20/25 pain #90 tabs omeprazole 40 mg capsule,delayed 40 mg PO DAILY #180 c aps 05/03/25 08/20/25 release valacyclovir 500 mg tablet 1,000 mg PO Q3D PRN 5 08/20/25 tramadol 50 mg tablet 50 mg PO QHS PRN pain/sleep #30 06/20/25 08/20/25 tabs Previous Rx's ?Medication ?Instructions ?Recorded hydrochlorothiazide 25 mg tablet 25 mg PO QAM #90 tab- caps 12/28/24 losartan 100 mg tablet See Rx Instructions .Route 0 12/28/24 .COMPLEX #90 tabs amlodipine 10 mg tablet (Norvasc) 10 mg PO QAM #90 tab -caps 01/03/25 acetaminophen 500 mg tablet 1,000 mg (2 x 500 mg) PO Q 8H PRN 04/12/25 pain #90 tabs omeprazole 40 mg capsule,delayed 40 mg PO DAILY #180 c aps 05/03/25 release tramadol 50 mg tablet 50 mg PO QHS PRN pain/sleep #30 06/20/25 tabs Allergies Allergy/AdvReac Type Severity Reaction Status Date / Time Tetanus Vaccines and Toxoid Allergy Intermediate SEVERE Verified 06/09/25 13:32 LOCAL REACTION atenolol AdvReac Intermediate RAYNAUD'S Verified 06/09/25 13:32 General Stated Complaint: Abd Prob RAPHAEL: 3 Review of Systems Narrative: see HPI Exam Narrative Exam Narrative: General: Alert, well appearing, well nourished, in no acute distress. Head: Normocephalic, atraumatic Neck: Trachea midline, ?Neck supple. ENT: ?MMM. Cardiac: ?RRR, no murmurs appreciated Resp: No respiratory distress. CTAB. Abd: ?Soft, non-distended, TTP in periumbilical area with no rebound or guarding. Negative Mcmahan's. No skin changes in abdomen, no hernia palpable. : ?No suprapubic tenderness. Extremities: ?No deformities.? No peripheral edema. Neurologic: GCS 15. ? Moves all extremities freely against gravity Course Vital Signs Vital signs: Vital Signs Temperature 37.0 C 08/20/25 22:16 Pulse 109 H 08/20/25 22:16 Blood Pressure 180/75 H 08/20/25 22:16 Temperature 37.0 C 08/20/25 22:21 Pulse 97 H 08/20/25 22:50 Blood Pressure 157/79 H 08/20/25 22:46 Blood Pressure Mean 103 08/20/25 22:46 Blood Pressure Position Sitting 08/20/25 22:21 Pulse Oximetry 94 08/20/25 22:50 Lab/Test Results Lab/Test Results: Laboratory Tests Range/Units 08/20/25 08/20/25 22:50 23:03 WBC (4.4-10.8) 10^3/uL 11.85 H RBC (3.93-5.22) 10^6/uL 4.18 Hgb (11.2-15.7) g/dL 11.7 Hct (36.0-46.0) % 32.9 L MCV (80-95) fL 79 L MCH (27.0-33.0) pg 28.0 MCHC (32.0-36.0) % 35.6 RDW (11.7-14.6) % 15.2 H Plt Count (130-400) 10^3/uL 363 MPV (8.0-11.0) fL 8.7 Immature Gran % % 0.3 Neutrophils % % 89.7 Lymphocytes % % 7.3 Monocytes % % 2.2 Eosinophils % % 0.2 Basophils % % 0.3 Nucleated RBC % (0.0-0.3) % 0.0 Absolute Neutrophils (1.2-6.7) 10^3/uL 10.63 H Absolute Lymphocytes (1.2-3.4) 10^3/uL 0.87 L Absolute Monocytes (0.1-0.8) 10^3/uL 0.26 Absolute Eosinophils (0.0-0.7) 10^3/uL 0.02 Absolute Basophils (0.0-0.2) 10^3/uL 0.04 Sodium (136-145) mmol/L 135 L Potassium (3.5-5.1) mmol/L 3.0 L Chloride (98-107) mmol/L 96 L Carbon Dioxide (20.0-31.0) mmol/L 28.8 Anion Gap (3-11) mmol/L 10.3 BUN (9-23) mg/dL 9 Creatinine (0.55-1.02) mg/dL 0.68 Est GFR (CKD-EPI 2020) (mL/min/1.73m2) 84.43 Glucose (74-106) mg/dL 111 H Calcium (8.3-10.6) mg/dL 9.2 Magnesium (1.6-2.6) mg/dL 1.8 Total Bilirubin (0.2-1.2) mg/dL 0.8 AST (<34) U/L 37 H ALT (10-49) U/L 21 Alkaline Phosphatase (46-116) U/L 88 Total Protein (5.7-8.2) g/dL 7.1 Albumin (3.2-5.0) g/dL 4.5 Lipase (<53) U/L 40 Urine Color (Yellow) Yellow Urine Clarity (Clear) Clear Urine pH (5-8) 7.5 Ur Specific [place] (1.005-1.025) 1.020 Urine Protein (Neg-Trace) mg/dL Negative Urine Ketones (Negative) mg/dL 40 H Urine Blood (Negative) Negative Urine Nitrite (Negative) Negative Urine Bilirubin (Negative) Negative Urine Urobilinogen (Up to 0.2) mg/dL 0.2 Ur Leukocyte Esterase (Negative) Negative Urine Glucose (Negative) mg/dL Negative Add-On Test Request DONE Medical Decision Making 74yo F with hx HTN, GERD, small abdominal hernia per pt, presenting with abdominal pain and vomiting. Hypertensive on arrival 180's/70's and mildly tachycardiac to low 100''s; shortly after arrival BP improved 150's/70's without intervention. Non-toxic on exam, no palpable hernia, abdomen tender in periumbilical region with no rebound or guarding. Will give tylenol, toradol, zofran for symptoms while awaiting results of workup. -EKG sinus tachycardia, appropriate intervals, some slight ST depressions anterolaterally, no ST segment or T wave abnormalities to suggest occlusive LA. -Labs reviewed as below, CBC with mild leukocytosis at 11, CMP with hypokalemia at 3.0 (IV replacement ordered) and normal LFTs, Mg normal, lipase not sugg estive of pancreatitis, lactate normal, UA not infected. Troponin negative x 2. -CT abd pelvis independently reviewed; no evident hernia on my view and does have air fluid levels suggestive of SBO; radiology read below with SBO. On reassessment patient reports pain is improved, though still present. Offered additional pain medication which pt declined. NG placed and XR confirms placement. Discussed [facility] hospitalist Dr. Lee; pt accepted to medicine service. Awaiting admission orders and transfer to the floor. IMPRESSION: 1. Small bowel obstruction with focal transition point suspected in the left lower quadrant. 2. Patient appears constipated. Lab Data Lab results reviewed: Yes I reviewed the patient's lab results. Labs: Laboratory Tests Range/Units 08/20/25 08/20/25 08/20/25 22:50 23:03 23:55 WBC (4.4-10.8) 10^3/uL 11.85 H RBC (3.93-5.22) 10^6/uL 4.18 Hgb (11.2-15.7) g/dL 11.7 Hct (36.0-46.0) % 32.9 L MCV (80-95) fL 79 L MCH (27.0-33.0) pg 28.0 MCHC (32.0-36.0) % 35.6 RDW (11.7-14.6) % 15.2 H Plt Count (130-400) 10^3/uL 363 MPV (8.0-11.0) fL 8.7 Immature Gran % % 0.3 Neutrophils % % 89.7 Lymphocytes % % 7.3 Monocytes % % 2.2 Eosinophils % % 0.2 Basophils % % 0.3 Nucleated RBC % (0.0-0.3) % 0.0 Absolute Neutrophils (1.2-6.7) 10^3/uL 10.63 H Absolute Lymphocytes (1.2-3.4) 10^3/uL 0.87 L Absolute Monocytes (0.1-0.8) 10^3/uL 0.26 Absolute Eosinophils (0.0-0.7) 10^3/uL 0.02 Absolute Basophils (0.0-0.2) 10^3/uL 0.04 VBG Lactate (<or=2.0) mmol/L 0.8 Sodium (136-145) mmol/L 135 L Potassium (3.5-5.1) mmol/L 3.0 L Chloride (98-107) mmol/L 96 L Carbon Dioxide (20.0-31.0) mmol/L 28.8 Anion Gap (3-11) mmol/L 10.3 BUN (9-23) mg/dL 9 Creatinine (0.55-1.02) mg/dL 0.68 Est GFR (CKD-EPI 2020) (mL/min/1.73m2) 84.43 Glucose (74-106) mg/dL 111 H Calcium (8.3-10.6) mg/dL 9.2 Magnesium (1.6-2.6) mg/dL 1.8 Total Bilirubin (0.2-1.2) mg/dL 0.8 AST (<34) U/L 37 H ALT (10-49) U/L 21 Alkaline Phosphatase (46-116) U/L 88 Troponin I (<35) ng/L < 3 < 3 Total Protein (5.7-8.2) g/dL 7.1 Albumin (3.2-5.0) g/dL 4.5 Lipase (<53) U/L 40 Urine Color (Yellow) Yellow Urine Clarity (Clear) Clear Urine pH (5-8) 7.5 Ur Specific [place] (1.005-1.025) 1.020 Urine Protein (Neg-Trace) mg/dL Negative Urine Ketones (Negative) mg/dL 40 H Urine Blood (Negative) Negative Urine Nitrite (Negative) Negative Urine Bilirubin (Negative) Negative Urine Urobilinogen (Up to 0.2) mg/dL 0.2 Ur Leukocyte Esterase (Negative) Negative Urine Glucose (Negative) mg/dL Negative Add-On Test Request DONE [facility] All Active Problems (Updated 08/21/25 @ 02:13 by Bunny Lee) Hypokalemia (Acute) Small bowel obstruction (Acute) Small bowel obstruction (Acute) Insomnia (Acute) Right thigh pain (Acute) Dysplastic skin lesion (Acute) Lumbar spondylosis (Acute) Mechanical low back pain (Acute) Spinal stenosis, lumbar region with neurogenic claudication (Chronic) Lumbar stenosis (Acute) Leg numbness (Acute) Hip pain, right (Acute) Degenerative joint disease (DJD) of lumbar spine (Acute) Neuropathy, peripheral (Acute) Central slip extensor tendon injury (boutonniere) (Acute ~11/11/22) Right little finger Hand pain, right (Acute) Closed fracture of right distal fibula (Acute 08/02/21) Right anterior knee pain (Acute) Chronic knee pain (Acute) Depressive disorder (Acute) Dysplasia of cervix (Acute) History of varicose vein ligation (Acute) Osteopenia (Acute) Esophagitis determined by biopsy (Acute) H/O esophagogastroduodenoscopy (Chronic ~06/2018) Esophagitis (Acute) Osteoarthritis (Acute) RIGHT WRIST Hypertension (Acute) Back skin lesion (Acute 07/11/17) Atrophic vaginitis (Acute 05/29/15) GERD without esophagitis (Acute) 05/25/18[facility] Hoarseness of voice (Acute) Medical History (Updated 08/21/25 @ 02:13 by Bunny Lee) Fusion of lumbar spine 10/02; L4-5; Hui [place] Change in voice GERD (gastroesophageal reflux disease) Basal cell carcinoma, arm (~01/18/19) 01/18/19 [facility] [place]; B/L Gastric polyp Laryngopharyngeal reflux (LPR) 05/25/18-[facility] Dysplasia of cervix (uteri) Depressive disorder Osteopenia Back skin lesion Atrophic vaginitis Hypertension Osteoarthritis of right wrist Surgical History (Updated 05/26/25 @ 11:24 by CHARBEL Cormier) History of total right hip replacement (04/12/25) Hx of fusion of cervical spine C3-4; C4-C5, Hui Odom Day, 05/2024 Hx of meniscectomy of right knee (08/07/21) Fracture of right ulnar styloid excision of non-union fracture fragment of ulna styloid Dr. Bower DOS: 11/07/08 Hx of colonoscopy VEIN ABLATION greater saphenous vein LTL (~1987) HERNIA REPAIR epigastric Cervical Procedure CONE BX Family History Mother , 79 Heart disease Macular degeneration Father , 62 Lung cancer Sister , 63 Lung cancer Maternal Grandfather Lung cancer Paternal Grandfather , 35 Septicemia AT YOUNG AGE Maternal Grandmother , 60 Essential hypertension Heart disease CHF Paternal Grandmother , 88 Stroke Sister No problems noted. Sister No problems noted. Son Essential hypertension Daughter No problems noted. Social History Smoking/Tobacco Use Status: Former Tobacco Use tobacco type: cigarettes Quit Date: 09/08/84 Tobacco: How many years used: 18 Second Hand Exposure: Yes Smoking risk assessment performed?: Yes Alcohol Intake: never Drug use: Never Substance use type: does not use Caregiver/Support person: No Household members: significant other Housing: house Communication Needs: None Do you need help understanding health information?: Never Pets and animals: Yes Pets and animals: dog(s) Sexually active: Yes Do you think of yourself as: straight/heterosexual Current gender identity: female What is your relationship status?: living with partner How often do you talk on the phone with friends or family?: twice per week How often do you get together with friends or relatives?: three or more times per week How often do you attend yazidism or sabianist services?: decline to answer Do you belong to any clubs or organized social groups?: no Panel score (0-1 are the most socially isolated patients): 2 What type of physical activity do you participate in: walking, other Details: treadmill,rower and additional Details: treadmill and rowing Duration: 45-60 minutes/day Frequency: 5-6 times per week Bee/Christian: None Special bee needs: No Seatbelt use: always Helmet use: Yes Helmet use: always Drive intox or ride w/intox medical van driver: No Do you feel safe at home: Yes Do you feel safe in your relationship?: Yes
[2025-08-20 23:49] LABS: Troponin I < 3 ng/L (<35)
[2025-08-21] VITALS (34 sets, daily range): BP systolic 122–162; BP diastolic 60–80; PULSE 77–122; RESP 16–20; TEMP 36.5–38; O2SAT 92–99
[2025-08-21 00:21] LABS: Troponin I < 3 ng/L (<35)
--- NOTE | 2025-08-21 01:00 | DI.RAD_ITS ---
Exam(s) XR PORTABLE CHEST AP EXAM: XR PORTABLE CHEST AP CLINICAL HISTORY: tube check TECHNIQUE: 2D digital imaging was performed. COMPARISON: CR CHEST 2 VIEWS PA,LAT from 07/27/[address] ABDOMEN PELVIS W from 08/20/2025 FINDINGS: LUNGS: Clear. No pleural abnormality seen. HEART: Mildly enlarged. AORTA: mildly tortuous. BONES: Unremarkable for age. Soft tissues: Unremarkable. A nasogastric tube projects in the fundus of the stomach. IMPRESSION: No acute findings. Nasogastric tube projects in the fundus of the stomach. The preliminary [facility] report was reviewed. DATA REPOSITORY: RADIATION DOSE DELIVERED:
--- NOTE | 2025-08-21 01:50 | HPE_ITS ---
Date of service: 08/21/25 Time of Service: 01:51 Assessment and Plan Assessment and plan (1) Small bowel obstruction: Start date: 08/21/25 Status: Acute Assessment and plan: This is a 74-year-old lady who has a history of umbilical hernia which has been symptomatic with recent weight loss on GLP-1 agonist and acute bowel obstruction with small bowel obstruction by CT scan of the abdomen. This may be associate with her umbilical hernia but she does have chronic constipation which is treated. Continue NG tube decompression and surgical consultation for follow- up. She is a full code. (2) Hypokalemia: Start date: 08/21/25 Status: Acute Assessment and plan: IV repletion with follow-up and continue repletion if needed. This may be acute with her bowel obstruction and nausea and vomiting. She is on hydrochlorothiazide chronically. She is not on chronic potassium supplement. Check magnesium. (3) Hypertension: Assessment and plan: Continue outpatient medical therapy as tolerated with clamping of the NG tube after administration. (4) GERD (gastroesophageal reflux disease): Assessment and plan: Continue PPI with IV Protonix while hospitalized and with NG tube in place. (5) Spinal stenosis, lumbar region with neurogenic claudication: Status: Chronic Assessment and plan: Patient was on tramadol in the past but this will not be continued with not being prescribed recently. This appears to be improved with weight loss. (6) Herpes simplex: Status: Chronic Assessment and plan: Recurrent over the patient's buttocks with acyclovir used for 3-day course as needed. History of Present Illness History of Present Illness Chief Complaint: 1 day history of abdominal pain and distention with vomiting Narrative: This is a 74-year-old female patient who had previous umbilical hernia surgery years ago presenting with gradual onset of abdominal distention and discomfort with nausea and vomiting. She reported to the ED for evaluation because of persistence of symptoms. She was found to have a point obstruction in the small bowel in the left lower quadrant by CT of the abdomen. She has slightly elevated WBC but no fever and no evidence of UTI with urinalysis showing ketones. Patient states that she has really started GLP-1 agonist 3 months ago with good results and has been vigilant about treating her chronic constipation. CT scan of the abdomen did show some constipation. She stated that her umbilical hernia has been symptomatic with a sensation of fullness at times having to be pushed and for relief of her discomfort. Never had has had continuous pain suggesting incarceration and there is minimal bulging in the area when she has symptoms. Patient had NG tube placed with 400 cc out immediately which slowed and she is more comfortable. She will be admitted for continued bowel decompression with NG tube and surgical consultation to evaluate her umbilical hernia symptoms along with this new bowel obstruction. Her outpatient medical therapy will be continued as tolerated but omeprazole will be switched to Protonix and she is not on tramadol at this time by review of her PDMP. Her GLP-1 agonist was not on her medication list but this will not be continued while hospitalized. She is a full code. Review of Systems Narrative: 13 point review of systems otherwise unrevealing or stable. PFSH All Active Problems (Updated 08/21/25 @ 07:16 by Bunny Lee) Herpes simplex (Chronic) Hypokalemia (Acute) Small bowel obstruction (Acute) Small bowel obstruction (Acute) Insomnia (Acute) Right thigh pain (Acute) Dysplastic skin lesion (Acute) Lumbar spondylosis (Acute) Mechanical low back pain (Acute) Spinal stenosis, lumbar region with neurogenic claudication (Chronic) Lumbar stenosis (Acute) Leg numbness (Acute) Hip pain, right (Acute) Degenerative joint disease (DJD) of lumbar spine (Acute) Neuropathy, peripheral (Acute) Central slip extensor tendon injury (boutonniere) (Acute ~11/11/22) Right little finger Hand pain, right (Acute) Closed fracture of right distal fibula (Acute 08/02/21) Right anterior knee pain (Acute) Chronic knee pain (Acute) Depressive disorder (Acute) Dysplasia of cervix (Acute) History of varicose vein ligation (Acute) Osteopenia (Acute) Esophagitis determined by biopsy (Acute) H/O esophagogastroduodenoscopy (Chronic ~06/2018) Esophagitis (Acute) Osteoarthritis (Acute) RIGHT WRIST Hypertension (Acute) Back skin lesion (Acute 07/11/17) Atrophic vaginitis (Acute 05/29/15) GERD without esophagitis (Acute) 05/25/18-[facility]- Hoarseness of voice (Acute) Medical History (Updated 08/21/25 @ 07:16 by Bunny Lee) Fusion of lumbar spine 10/02; L4-5; Hui Odom Change in voice GERD (gastroesophageal reflux disease) Basal cell carcinoma, arm (~01/18/19) 01/18/19 [facility] [place]; B/L Gastric polyp Laryngopharyngeal reflux (LPR) 05/25/18-[facility] Dysplasia of cervix (uteri) Depressive disorder Osteopenia Back skin lesion Atrophic vaginitis Hypertension Osteoarthritis of right wrist Surgical History (Updated 05/26/25 @ 11:24 by CHARBEL Cormier) History of total right hip replacement (04/12/25) Hx of fusion of cervical spine C3-4; C4-C5, Hui Vivark Day, 05/2024 Hx of meniscectomy of right knee (08/07/21) Fracture of right ulnar styloid excision of non-union fracture fragment of ulna styloid Dr. Bower DOS: 11/07/08 Hx of colonoscopy VEIN ABLATION greater saphenous vein LTL (~1987) HERNIA REPAIR epigastric Cervical Procedure CONE BX Family History Mother , 79 Heart disease Macular degeneration Father , 62 Lung cancer Sister , 63 Lung cancer Maternal Grandfather Lung cancer Paternal Grandfather , 35 Septicemia AT YOUNG AGE Maternal Grandmother , 60 Essential hypertension Heart disease CHF Paternal Grandmother , 88 Stroke Sister No problems noted. Sister No problems noted. Son Essential hypertension Daughter No problems noted. Social History Smoking/Tobacco Use Status: Former Tobacco Use tobacco type: cigarettes Quit Date: 09/08/84 Tobacco: How many years used: 18 Second Hand Exposure: Yes Smoking risk assessment performed?: Yes Alcohol Intake: never Drug use: Never Substance use type: does not use Caregiver/Support person: No Household members: significant other Housing: house Communication Needs: None Do you need help understanding health information?: Never Pets and animals: Yes Pets and animals: dog(s) Sexually active: Yes Do you think of yourself as: straight/heterosexual Current gender identity: female What is your relationship status?: living with partner How often do you talk on the phone with friends or family?: twice per week How often do you get together with friends or relatives?: three or more times per week How often do you attend religious or jewish services?: decline to answer Do you belong to any clubs or organized social groups?: no Panel score (0-1 are the most socially isolated patients): 2 What type of physical activity do you participate in: walking, other Details: treadmill,rower and additional Details: treadmill and rowing Duration: 45-60 minutes/day Frequency: 5-6 times per week Bee/Baptism: None Special bee needs: No Seatbelt use: always Helmet use: Yes Helmet use: always Drive intox 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 Do you feel safe at home: Yes Do you feel safe in your relationship?: Yes Meds Allergies and Home Medications Allergies Allergy/AdvReac Type Severity Reaction Status Date / Time Tetanus Vaccines and Toxoid Allergy Intermediate SEVERE Verified 06/09/25 13:32 LOCAL REACTION atenolol AdvReac Intermediate RAYNAUD'S Verified 06/09/25 13:32 Home Medications ?Medication ?Instructions ?Recorded ?Confirmed ?Type docusate sodium 100 mg capsule 100 mg PO DAILY #180 ta b-caps 02/03/13 08/20/25 History (Colace) multivitamin (Once Daily tablet) 1 tab PO DAILY 08/20/25 History hydrochlorothiazide 25 mg tablet 25 mg PO QAM #90 tab- caps 12/28/24 08/20/25 Rx losartan 100 mg tablet See Rx Instructions .Route 0 12/28/24 08/20/25 Rx .COMPLEX #90 tabs amlodipine 10 mg tablet (Norvasc) 10 mg PO QAM #90 tab -caps 01/03/25 08/20/25 Rx acetaminophen 500 mg tablet 1,000 mg (2 x 500 mg) PO Q 8H PRN 04/12/25 08/20/25 Rx pain #90 tabs omeprazole 40 mg capsule,delayed 40 mg PO DAILY #180 c aps 05/03/25 08/20/25 Rx release valacyclovir 500 mg tablet 1,000 mg PO Q3D PRN 5 08/20/25 History tramadol 50 mg tablet 50 mg PO QHS PRN pain/sleep #30 06/20/25 08/20/25 Rx tabs semaglutide 2.5 mg/mL subcutaneous 2.5 mg subcut .Week ly 08/21/25 08/21/25 History solution Exam Narrative Exam Narrative: General: Patient appears appropriate for age, alert and oriented x 3 and in no acute distress with NG tube in place. HEENT: Normocephalic, eyes with pupils equal and reactive to light symmetrically, extraocular movement tact and sclera anicteric. Oropharynx with moist mucosa. NG tube in place with little drainage. Neck: Supple without JVD. Back: Normal posture without CVA tenderness. Lungs: Good aeration and clear to auscultation percussion. No focalizing rales or rhonchi and no expiratory wheeze. Breast: Exam deferred. Heart: Regular rate and rhythm with no murmurs or gallops appreciated. Abdomen: Slightly obese contour, soft with no focalizing tenderness but bowel sounds are quiet in all quadrants. No focal guarding or rebound. Well-healed scar over the umbilicus with no palpable umbilical hernia or tenderness over the umbilical area. Genitalia/rectal: Exam deferred. Extremities: Without clubbing, cyanosis or pitting edema. Peripheral pulses intact. Skin: Normal color, warm and dry. Neuro: Cranial nerves II through XII gross intact, no focalizing motor deficits and no tremor. Psych: Normal affect and mood. No abnormal thought processes. Remote and recent memory intact. Results Imaging Imaging Studies: Exam: CT Abdomen And Pelvis With Contrast Exam date and time: 08/20/2025 10:59 PM Age: 74 years old Clinical indication: Abdominal pain; Periumbilical; Prior surgery; Surgery date: 6+ months; Surgery type: H/o hernia w repair. Hip replacement, spinal surg TECHNIQUE: Imaging protocol: Computed tomography of the abdomen and pelvis with contrast. Contrast material: OMNI 350; Contrast volume: 75 ml; Contrast route: INTRAVENOUS (IV); COMPARISON: CT ABDOMEN PELVIS W 09/04/2020 10:15 AM FINDINGS: Lungs: Lung bases are clear as visualized. Heart: Base of heart is unremarkable as visualized. Liver: Benign hepatic cyst at the posterior right hepatic lobe. Gallbladder and biliary ducts: Normal. No calcified stones. No ductal dilation. Pancreas: Normal. No ductal dilation. Spleen: Normal. No splenomegaly. Adrenal glands: Normal. No mass. Kidneys and ureters: Left extrarenal pelvis. Stomach and bowel: Prominent colonic stool burden. Dilated and fecalized loops of small bowel in the pelvis. Bowel reaches up to 3 cm. Possible focal transition in the left lower quadrant (series 8, image 52). Prominent colonic stool burden. Appendix: No evidence of appendicitis. Intraperitoneal space: Unremarkable. No free air. No significant fluid collection. Vasculature: Moderate atherosclerotic disease of the abdomen. Multiple pelvic phleboliths are seen. Lymph nodes: Unremarkable. No enlarged lymph nodes. Urinary bladder: Urinary bladder is decompressed. Reproductive: Calcified fibroids of the uterus. Bones/joints: Right total hip arthroplasty, incompletely visualized. Posterior fusion and decompression changes of the lower lumbar spine. Bones are demineralized. Soft tissues: Unremarkable. IMPRESSION: 1. Small bowel obstruction with focal transition point suspected in the left lower quadrant. 2. Patient appears constipated. Labs 08/20/25 22:50 08/20/25 22:50 Labs: Laboratory Results - last 24 hr 08/20/25 08/20/25 08/20/25 22:50 23:03 23:55 WBC 11.85 H RBC 4.18 Hgb 11.7 Hct 32.9 L MCV 79 L MCH 28.0 MCHC 35.6 RDW 15.2 H Plt Count 363 MPV 8.7 Immature Gran % 0.3 Neutrophils % 89.7 Lymphocytes % 7.3 Monocytes % 2.2 Eosinophils % 0.2 Basophils % 0.3 Nucleated RBC % 0.0 Absolute Neutrophils 10.63 H Absolute Lymphocytes 0.87 L Absolute Monocytes 0.26 Absolute Eosinophils 0.02 Absolute Basophils 0.04 VBG Lactate 0.8 Sodium 135 L Potassium 3.0 L Chloride 96 L Carbon Dioxide 28.8 Anion Gap 10.3 BUN 9 Creatinine 0.68 Est GFR (CKD-EPI 2020) 84.43 Glucose 111 H Calcium 9.2 Magnesium 1.8 Total Bilirubin 0.8 AST 37 H ALT 21 Alkaline Phosphatase 88 Troponin I < 3 < 3 Total Protein 7.1 Albumin 4.5 Lipase 40 Urine Color Yellow Urine Clarity Clear Urine pH 7.5 Ur Specific [place] 1.020 Urine Protein Negative Urine Ketones 40 H Urine Blood Negative Urine Nitrite Negative Urine Bilirubin Negative Urine Urobilinogen 0.2 Ur Leukocyte Esterase Negative Urine Glucose Negative Add-On Test Request DONE Last Vital Signs Temp 37.0 C 08/20/25 22:21 Pulse 90 08/21/25 00:20 BP 142/68 H 08/21/25 00:16 Pulse Ox 94 08/21/25 00:20 VTE Prohylaxis Risk Level: Moderate/High Risk Contraindications: None Prophylaxis: Pharmacologic and Mechanical Time Spent Time spent with Patient: >75 minutes Time was spent: preparing to see the patient(eg.review tests), obtaining and/or reviewing separately otained hiistory, ordering medications,tests, procedures, referring, communicating with other health lawn care professional, indepentently interpreting results, counseling the patient and care coordination
[2025-08-21] MEDS: Normal Saline 1,000 ML 1000 ML IV (02:09)
--- NOTE | 2025-08-21 02:13 | DI.VRAD_ITS ---
PROCEDURE INFORMATION: Exam: XR Chest Exam date and time: 08/21/2025 1:59 AM Age: 74 years old Clinical indication: Device placement; Ng tube; Additional info: Tube check TECHNIQUE: Imaging protocol: Radiologic exam of the chest. Views: 1 view. COMPARISON: CT ABDOMEN PELVIS W 08/20/2025 10:59 PM FINDINGS: Tubes, catheters and devices: Enteric tube traverses midline, catheter tip appears subdiaphragmatic in the left upper quadrant. IMPRESSION: Enteric tube appears appropriately seated. Dictated and Authenticated by: Aureliano Giron MD. Orderin Willis Hammond MD
--- NOTE | 2025-08-21 02:53 | W.PCEDHO ---
Registration Status: REG ER Primary Language: Preferred Language: Polish ED Information & Data Chief Complaint Abd Prob 08/20/25 23:45 Triage Note 3 of 10 dull/achy pain 08/20/25 22:16 center/upper abd starting approx 1500 today. Hx of hernia (that is generally reducible). PT concerned that her hernia is not reducing the way it normally does. PT has vomited twice today. Medical / Surgical History (Last Updated 04/12/25 @ 06:49 by Aspen Barrow) Fusion of lumbar spine Change in voice GERD (gastroesophageal reflux disease) Basal cell carcinoma, arm (~01/18/19) Gastric polyp Laryngopharyngeal reflux (LPR) Dysplasia of cervix (uteri) Depressive disorder Osteopenia Back skin lesion Atrophic vaginitis Hypertension Osteoarthritis of right wrist (Last Updated 05/26/25 @ 11:24 by CHARBEL Cormier) History of total right hip replacement (04/12/25) Hx of fusion of cervical spine Hx of meniscectomy of right knee (08/07/21) Fracture of right ulnar styloid Hx of colonoscopy VEIN ABLATION LTL (~1987) HERNIA REPAIR Cervical Procedure Most Recent Vital Signs Temperature 37 C 08/21/25 02:22 Temperature Source Temporal Artery Scan 08/21/25 02:22 Pulse 97 H 08/21/25 02:20 Respiratory Rate 18 08/21/25 02:22 Blood Pressure 142/70 H 08/21/25 02:22 Blood Pressure Mean 94 08/21/25 02:22 Blood Pressure Position Sitting 08/20/25 22:21 Pulse Oximetry 96 08/21/25 02:22 Respiratory End-tidal CO2 18 08/21/25 02:07 Oxygen Delivery Method Room Air 08/21/25 02:22 Oxygen Flow Rate 0 08/21/25 02:22 Pain Level 4 08/21/25 02:22 Allergies Tetanus Vaccines and Toxoid Allergy (Intermediate, Verified 06/09/25 13:32) SEVERE LOCAL REACTION atenolol Adverse Reaction (Intermediate, Verified 06/09/25 13:32) RAYNAUD'S Active Medications Generic Name Dose Route Start Last Admin Trade Name Freq PRN Reason Stop Dose Admin Potassium Chloride 20 meq in 100 mls @ 50 mls/hr 08/20/25 23:30 08/21/25 01:59 IV INF 08/21/25 03:29 Infused Q2H SHEY Infusion Iohexol 100 ml 08/20/25 23:15 08/20/25 23:02 Omnipaque 350 Mg/Ml 100 Ml Btl IJ 09/19/25 23:59 75 ml DIRECTED SHEY Administration Sodium Chloride 50 ml 08/20/25 23:15 08/20/25 23:02 Normal Saline - Diluent 50 Ml Vial IJ 50 ml DIRECTED SHEY Administration Sodium Chloride 0 ml 08/20/25 23:01 08/20/25 23:02 Normal Saline Flush 10 Ml Syr IVP 10 ml PRN PRN Administration IV IV Catheter Type [Right Saline Lock Forearm] IV Catheter Gauge [Right 18 Forearm] Diagnostics 08/20/25 08/20/25 08/20/25 Range/Units 23:55 23:03 22:50 WBC 11.85 H (4.4-10.8) 10^3/uL RBC 4.18 (3.93-5.22) 10^6/uL Hgb 11.7 (11.2-15.7) g/dL Hct 32.9 L (36.0-46.0) % MCV 79 L (80-95) fL MCH 28.0 (27.0-33.0) pg MCHC 35.6 (32.0-36.0) % RDW 15.2 H (11.7-14.6) % Plt Count 363 (130-400) 10^3/uL MPV 8.7 (8.0-11.0) fL Immature Gran % 0.3 % Neutrophils % 89.7 % Lymphocytes % 7.3 % Monocytes % 2.2 % Eosinophils % 0.2 % Basophils % 0.3 % Nucleated RBC % 0.0 (0.0-0.3) % Absolute Neutrophils 10.63 H (1.2-6.7) 10^3/uL Absolute Lymphocytes 0.87 L (1.2-3.4) 10^3/uL Absolute Monocytes 0.26 (0.1-0.8) 10^3/uL Absolute Eosinophils 0.02 (0.0-0.7) 10^3/uL Absolute Basophils 0.04 (0.0-0.2) 10^3/uL VBG Lactate 0.8 (<or=2.0) mmol/L Sodium 135 L (136-145) mmol/L Potassium 3.0 L (3.5-5.1) mmol/L Chloride 96 L (98-107) mmol/L Carbon Dioxide 28.8 (20.0-31.0) mmol/L Anion Gap 10.3 (3-11) mmol/L BUN 9 (9-23) mg/dL Creatinine 0.68 (0.55-1.02) mg/dL Est GFR (CKD-EPI 2020) 84.43 (mL/min/1.73m2) Glucose 111 H (74-106) mg/dL Calcium 9.2 (8.3-10.6) mg/dL Magnesium 1.8 (1.6-2.6) mg/dL Total Bilirubin 0.8 (0.2-1.2) mg/dL AST 37 H (<34) U/L ALT 21 (10-49) U/L Alkaline Phosphatase 88 (46-116) U/L Troponin I < 3 < 3 (<35) ng/L Total Protein 7.1 (5.7-8.2) g/dL Albumin 4.5 (3.2-5.0) g/dL Lipase 40 (<53) U/L Urine Color Yellow (Yellow) Urine Clarity Clear (Clear) Urine pH 7.5 (5-8) Ur Specific [place] 1.020 (1.005-1.025) Urine Protein Negative (Neg-Trace) mg/dL Urine Ketones 40 H (Negative) mg/dL Urine Blood Negative (Negative) Urine Nitrite Negative (Negative) Urine Bilirubin Negative (Negative) Urine Urobilinogen 0.2 (Up to 0.2) mg/dL Ur Leukocyte Esterase Negative (Negative) Urine Glucose Negative (Negative) mg/dL Add-On Test Request DONE Intake and Output - 24 Hour Total 08/20/25 22:12 thru 08/21/25 01:59 Intake Total 200 Balance 200 Weight 68.946 kg Intake: IV 200 Falls Risk Assessment History of Falls No History 08/20/25 22:21 Contributing Factors No Factors 08/20/25 22:21 Ambulatory Aids Independent 08/20/25 22:21 Tubes/Lines None 08/20/25 22:21 Gait Evaluation No gait disturbance 08/20/25 22:21 Cognition No cognitive impairment 08/20/25 22:21 Fall Total Score 0 08/20/25 22:21 Level of Risk Standard/Low Risk 08/20/25 22:21 Problems (Last Updated 04/12/25 @ 06:49 by Aspen Barrow) Hypokalemia (Acute) Small bowel obstruction (Acute) Small bowel obstruction (Acute) Spinal stenosis, lumbar region with neurogenic claudication (Chronic) Attestation Statement: By documenting the first initial, last name, and credentials of the reporting nurse below, both parties acknowledge that all relevant information regarding the patient handoff has been communicated, and that all questions have been addressed to ensure continuity and safety of care. Additional Patient Information/Comments: Report Received From: Iona APONTE at [id number]
[2025-08-21] MEDS: POTASSIUM CHLORIDE/0.9% NACL 1,000 ML 125 MEQ IV ×3 (03:43→22:18)
[2025-08-21 03:45] LABS: COVID-19 PCR Negative (Negative); RSV PCR Negative (Negative)
[2025-08-21] MEDS: POTASSIUM CHLORIDE 20 MEQ/100 ML BAG 50 MEQ IV INF (04:00)
[2025-08-21] MEDS: Heparin 5,000 UNITS/ML VIAL 5000 UNITS SC ×3 (06:31→21:29)
[2025-08-21 06:53] LABS: HCT 30.2 % (36.0-46.0); HGB 10.8 g/dL (11.2-15.7); MCH 28.3 pg (27.0-33.0); MCHC 35.8 % (32.0-36.0); MCV 79 fL (80-95); MPV 8.8 fL (8.0-11.0); Platelet Count 316 10^3/uL (130-400); RBC 3.82 10^6/uL (3.93-5.22); RDW 15.5 % (11.7-14.6); RDW-SD 44.7 fL; WBC 11.01 10^3/uL (4.4-10.8)
[2025-08-21 07:05] LABS: INR 1.0 (0.9-1.1); Prothrombin Time 10.0 sec (9.1-11.1)
[2025-08-21 07:17] LABS: Magnesium 1.8 mg/dL (1.6-2.6)
[2025-08-21 07:22] LABS: ALT 18 U/L (10-49); AST 30 U/L (<34); Albumin 3.9 g/dL (3.2-5.0); Alkaline Phosphatase 73 U/L (46-116); Anion Gap 10.2 mmol/L (3-11); BUN 8 mg/dL (9-23); Bilirubin, Total 0.7 mg/dL (0.2-1.2); CO2 28.8 mmol/L (20.0-31.0); Calcium 8.8 mg/dL (8.3-10.6); Chloride 100 mmol/L (98-107); Glucose 89 mg/dL (74-106); Potassium 3.7 mmol/L (3.5-5.1); Sodium 139 mmol/L (136-145); Total Protein 6.1 g/dL (5.7-8.2)
[2025-08-21] MEDS: Pantoprazole 40 MG VIAL IVP (08:13)
[2025-08-21] MEDS: Normal Saline Flush 10 ML SYR (08:13)
[2025-08-21] MEDS: ACETAMINOPHEN 1,000 MG/100 ML BAG 400 MG IVPB (08:14)
--- NOTE | 2025-08-21 08:53 | PDOC.CMIN ---
Date of service: 08/21/25 Time of Service: 09:10 Care Management Initial Assmt Initial Assessment Reason for Hospitalization: SBO Functional Status/Living Situation Patient Presentation: Leona was sitting up in bed visiting with her partner Bunny when CM met with her. She was very pleasant in interaction and easily engaged with CM, well known to her from having worked at [employer] for many years. Leona was admitted with a SBO. She still has an NG tube and is NPO. She reported that she expects the tube to be removed tomorrow and hopefully she will be able to tolerate a diet. Leona and Bunny live in [place], [place]. in a single family home. They are a very active couple who enjoy outdoor sports and who love to travel. Leona has 2 children who live in [place] but with whom she keeps in close contact. She is independent at baseline and does not receive any community services. 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) Instrumental Activities of Daily Living (ADLs): Independent Activities/Hobbies/SocialSupport: skiing, snow mobiling Medications Medication Management: No Issues/Barriers identified Physical Functioning/Mobility Assistive Device: none Advance Directives Advance Directives: Do you have an Advance Directive: Y 03/18/25, 10:00 AD On File at [facility]: Y Today, 02:17 Date Asked 07/13/25 07/13/25, 07:48 AD Date Reviewed 08/21/25 Today, 02:17 COLST On File at [facility] Yes 10/20/24, 11:43 COLST Date Scanned 04/15/24 10/20/24, 11:43 Code Status Resuscitation Status DNR Insurance Coverage/Financial Issues Insurance: Medicare /[facility] Care Team Visit Care Team Role Provider Type Mikey Lewis MD MD [facility] STAFF PHYSICIAN Meño Cowan MD Primary Care Provider [facility] STAFF PHYSICIAN Katrin Che MD Other Providers [facility] STAFF PHYSICIAN Stephany Pedro MD Emergency Provider [facility] STAFF PHYSICIAN Bunny Lee Admit Provider NON-[facility] STAFF PHYSICIAN Attending Provider Discharge Potential Discharge Needs: Surgical F/U Appt Anticipated Barriers to Discharge: None Identified Patient/Family Education Needs: Review discharge instructions, discuss Ask Me Three Transportation: Private vehicle Plan: Anticipate Leona will be discharged home with no new services when stable. She will follow up with her surgeon and PCP and transport with her partner. CM will follow and continue to assess for discharge needs. Social Determinants of Health Screening Social Determinants of health last assessed in clinic: 08/21/25 Will the Patient Participate in the Screening?: Yes Do you worry about having a steady place to live?: no Problems where you live: no known problems In the past 12 months, have you had to go without electric, gas, oil or water in your home?: no 1. Within the past 12 months, we worried whether our food would run out before we got money to buy more.: Never true 2. Within the past 12 months, the food we bought just didn't last and we didn't have money to get more.: Never true Has lack of transportation kept you from medical appointments or from doing things needed for daily living?: no Has anyone in your life made you feel unsafe or unsupported?: no How hard is it for you to pay for the very basics like food, housing, medical care, and heating? Would you say it is:: Not hard at all Do you want help finding or keeping work or a job?: I do not need or want help If for any reason you need help with day-to-day activities such as bathing, preparing meals, shopping, managing finances, etc., do you get the help you need?: I don?t need any help How often do you feel lonely or isolated from those around you?: Never Do you speak a language other than Iraqi at home?: Yes Health Related Social Needs Health related social needs: education (Z55.6) PFSH All Active Problems (Updated 08/21/25 @ 14:27 by Katrin Che MD) Fecal obstruction (Acute) Herpes simplex (Chronic) Hypokalemia (Acute) Small bowel obstruction (Acute) Small bowel obstruction (Acute) Insomnia (Acute) Right thigh pain (Acute) Dysplastic skin lesion (Acute) Lumbar spondylosis (Acute) Mechanical low back pain (Acute) Spinal stenosis, lumbar region with neurogenic claudication (Chronic) Lumbar stenosis (Acute) Leg numbness (Acute) Hip pain, right (Acute) Degenerative joint disease (DJD) of lumbar spine (Acute) Neuropathy, peripheral (Acute) Central slip extensor tendon injury (boutonniere) (Acute ~11/11/22) Right little finger Hand pain, right (Acute) Closed fracture of right distal fibula (Acute 08/02/21) Right anterior knee pain (Acute) Chronic knee pain (Acute) Depressive disorder (Acute) Dysplasia of cervix (Acute) History of varicose vein ligation (Acute) Osteopenia (Acute) Esophagitis determined by biopsy (Acute) H/O esophagogastroduodenoscopy (Chronic ~06/2018) Esophagitis (Acute) Osteoarthritis (Acute) RIGHT WRIST Hypertension (Acute) Back skin lesion (Acute 07/11/17) Atrophic vaginitis (Acute 05/29/15) GERD without esophagitis (Acute) 05/25/18-[facility] Hoarseness of voice (Acute) Medical History Fusion of lumbar spine 10/02; L4-5; Hui [facility]arrow Change in voice GERD (gastroesophageal reflux disease) Basal cell carcinoma, arm (~01/18/19) 01/18/19 [facility] [place]; B/L Gastric polyp Laryngopharyngeal reflux (LPR) 05/25/18-[facility] Dysplasia of cervix (uteri) Depressive disorder Osteopenia Back skin lesion Atrophic vaginitis Hypertension Osteoarthritis of right wrist Surgical History History of total right hip replacement (04/12/25) Hx of fusion of cervical spine C3-4; C4-C5, Hui Barrow, 05/2024 Hx of meniscectomy of right knee (08/07/21) Fracture of right ulnar styloid excision of non-union fracture fragment of ulna styloid Dr. Bower DOS: 11/07/08 Hx of colonoscopy VEIN ABLATION greater saphenous vein LTL (~1987) HERNIA REPAIR epigastric Cervical Procedure CONE BX Family History Mother , 79 Heart disease Macular degeneration Father , 62 Lung cancer Sister , 63 Lung cancer Maternal Grandfather Lung cancer Paternal Grandfather , 35 Septicemia AT YOUNG AGE Maternal Grandmother , 60 Essential hypertension Heart disease CHF Paternal Grandmother , 88 Stroke Sister No problems noted. Sister No problems noted. Son Essential hypertension Daughter No problems noted. Social History Smoking/Tobacco Use Status: Former Tobacco Use tobacco type: cigarettes Quit Date: 09/08/84 Tobacco: How many years used: 18 Second Hand Exposure: Yes Smoking risk assessment performed?: Yes Alcohol Intake: never Drug use: Never Substance use type: does not use Caregiver/Support person: No Household members: significant other Housing: house Communication Needs: None Do you need help understanding health information?: Never Pets and animals: Yes Pets and animals: dog(s) Sexually active: Yes Do you think of yourself as: straight/heterosexual Current gender identity: female What is your relationship status?: living with partner How often do you talk on the phone with friends or family?: twice per week How often do you get together with friends or relatives?: three or more times per week How often do you attend hindu or mandaeism services?: decline to answer Do you belong to any clubs or organized social groups?: no Panel score (0-1 are the most socially isolated patients): 2 What type of physical activity do you participate in: walking, other Details: treadmill,rower and additional Details: treadmill and rowing Duration: 45-60 minutes/day Frequency: 5-6 times per week Bee/Yarsani: None Special bee needs: No Seatbelt use: always Helmet use: Yes Helmet use: always Drive intox or ride w/intox lead driver: No Do you feel safe at home: Yes Do you feel safe in your relationship?: Yes
--- NOTE | 2025-08-21 12:23 | SCONE_ITS ---
Date of service: 08/21/25 Time of Service: 12:23 Assessment and Plan Assessment and plan (1) Small bowel obstruction: Status: Acute Assessment and plan: Reviewed CAT scan images and report. I do not appreciate the transition point in the left lower quadrant but rather I see fecalization of the small bowel resulting in more proximal obstruction pattern. There is gas and stool in the colon, but the stool burden is significant. There are calcified stools in the rectum and significant stool burden throughout the abdomen. I think there is fecalization of the small bowel as the cause of the small bowel obstruction. NG tube was placed overnight and the patient has improved with decompression of the proximal digestive system. Recommend continuing the NG tube through the day to ensure the flatus that she has begun to have is consistent. If the tube output remains minimal today the NG tube can be discontinued. I recommend a bowel prep tomorrow in order to clear the small and large bowel of the fecal burden and impaction. Suppositories and enemas may be helpful to initiate stooling. I think it is important that she accomplish this bowel prep while she is here for care as it is essential in clearing her obstructive process prior to discharge. We discussed that after discharge I feel it would be useful to hold her GLP-1 use for some time. We discussed holding it for a month. During this time she should engage in a bowel regimen that helps to reset and regulate her stool habits. Side effect of the semaglutide includes constipation and decreased motility through the digestive system. It appears the side effect is severe in her case, and the stool softener and fiber supplementation are not enough to keep her regular while she is on semaglutide. I recommend an actual laxative for her with the goal to produce soft stools on a regular basis. If her stools are still dry and hard like they happen then she we will know in the future that that is not enough. We discussed that fiber use without adequate water intake can result in constipation and I think that her fiber use contributed to her current state. In the time she is off of semaglutide, I would like for her to develop a good water drinking regimen and plan that she can continue once she resumes her semaglutide in the future. Fiber supplementation can be restarted in the future once she has confirmed adequate water intake regimen. We discussed MiraLAX as my laxative of choice for her, that she may use smooth move tea as that has worked well for her in the past. I suspect she will benefit from using a laxative 2 times a week or more when she resumes her semaglutide. She does not intend to be on semaglutide long-term but would like to accomplish the rest of her weight loss goals with it. With a reasonable plan in place for bowel regimen I think this is a good plan to safely resume her medication at home. She should consult with her prescribing provider about the appropriate dose to resume when she chooses to do so. Conclusion; NG tube may be discontinued later today if output remains low and flatus continues. Bowel prep tomorrow. Home the next day. (2) Fecal obstruction: Status: Acute History of Present Illness History of Present Illness Chief Complaint: SBO Narrative: 74-year-old female who presented to the emergency department with abdominal pain and nausea. She initially said that it started yesterday only but after further discussion she had felt unwell for a couple of days. She developed abdominal pain and abdominal distention that became increasingly severe. The nausea was certainly severe and we will when she presented to the emergency department. CAT scan was done for suspicion of bowel obstruction given the metabolic and electrolyte pattern on her lab work. CAT scan showed suggestion of small bowel obstruction with possible transition point in the left lower quadrant. An NG tube was placed. Is not clear to me how much output the tube had as there is none documented. This morning she feels better and states that she has begun to pass gas from her bottom. We talked a lot about the patient's semaglutide use. She has been on semaglutide for weight loss for 3 months. She has lost approximately 20 pounds. She says that initially she had some nausea with the medication but this has significantly improved over time. She has never had the symptoms she presented with in the past. She has been struggling with dry hard and infrequent stools since she started the semaglutide. She was managing this with thoughtfulness and was taking stool softener and fiber supplement regularly. Using stool softener and fiber supplement resulted in a bowel movement every few days, which she thought was enough. Her bowel movements were still small dry. The stools resemble pellets. She was not having bowel movements as often or as much as she did prior to taking the medication, but thought that this was proportionate to the food intake that she was having. We discussed the stool burden noted on her CAT scan at length. The patient notes a history of primary repair of an umbilical hernia in the past. She wonders if recurrent hernia was contributing to her current illness. She occasionally feels pain in the umbilicus and presses it in to reduce a small amount of fat that she feels. After she reduces the bellybutton she feels better and gets relief. We reviewed her CAT scan images together and noted a tiny umbilical hernia. I told her that the hernia is not contributing to her current illness. She has a headache and her throat feels dry. Other than that she has no complaints. She feels better than she did when she came into the hospital. PFSH All Active Problems (Updated 08/21/25 @ 14:27 by Katrin Che MD) Fecal obstruction (Acute) Herpes simplex (Chronic) Hypokalemia (Acute) Small bowel obstruction (Acute) Small bowel obstruction (Acute) Insomnia (Acute) Right thigh pain (Acute) Dysplastic skin lesion (Acute) Lumbar spondylosis (Acute) Mechanical low back pain (Acute) Spinal stenosis, lumbar region with neurogenic claudication (Chronic) Lumbar stenosis (Acute) Leg numbness (Acute) Hip pain, right (Acute) Degenerative joint disease (DJD) of lumbar spine (Acute) Neuropathy, peripheral (Acute) Central slip extensor tendon injury (boutonniere) (Acute ~11/11/22) Right little finger Hand pain, right (Acute) Closed fracture of right distal fibula (Acute 08/02/21) Right anterior knee pain (Acute) Chronic knee pain (Acute) Depressive disorder (Acute) Dysplasia of cervix (Acute) History of varicose vein ligation (Acute) Osteopenia (Acute) Esophagitis determined by biopsy (Acute) H/O esophagogastroduodenoscopy (Chronic ~06/2018) Esophagitis (Acute) Osteoarthritis (Acute) RIGHT WRIST Hypertension (Acute) Back skin lesion (Acute 07/11/17) Atrophic vaginitis (Acute 05/29/15) GERD without esophagitis (Acute) 05/25/18-[facility]- Hoarseness of voice (Acute) Medical History Fusion of lumbar spine 10/02; L4-5; Hui [facility]dom Day Change in voice GERD (gastroesophageal reflux disease) Basal cell carcinoma, arm (~01/18/19) 01/18/19 [facility] [place] B/L Gastric polyp Laryngopharyngeal reflux (LPR) 05/25/18-[facility] Dysplasia of cervix (uteri) Depressive disorder Osteopenia Back skin lesion Atrophic vaginitis Hypertension Osteoarthritis of right wrist Surgical History History of total right hip replacement (04/12/25) Hx of fusion of cervical spine C3-4; C4-C5, Hui [place] Day, 05/2024 Hx of meniscectomy of right knee (08/07/21) Fracture of right ulnar styloid excision of non-union fracture fragment of ulna styloid Dr. Bower DOS: 11/07/08 Hx of colonoscopy VEIN ABLATION greater saphenous vein LTL (~1987) HERNIA REPAIR epigastric Cervical Procedure CONE BX Family History Mother , 79 Heart disease Macular degeneration Father , 62 Lung cancer Sister , 63 Lung cancer Maternal Grandfather Lung cancer Paternal Grandfather , 35 Septicemia AT YOUNG AGE Maternal Grandmother , 60 Essential hypertension Heart disease CHF Paternal Grandmother , 88 Stroke Sister No problems noted. Sister No problems noted. Son Essential hypertension Daughter No problems noted. Social History Smoking/Tobacco Use Status: Former Tobacco Use tobacco type: cigarettes Quit Date: 09/08/84 Tobacco: How many years used: 18 Second Hand Exposure: Yes Smoking risk assessment performed?: Yes Alcohol Intake: never Drug use: Never Substance use type: does not use Caregiver/Support person: No Household members: significant other Housing: house Communication Needs: None Do you need help understanding health information?: Never Pets and animals: Yes Pets and animals: dog(s) Sexually active: Yes Do you think of yourself as: straight/heterosexual Current gender identity: female What is your relationship status?: living with partner How often do you talk on the phone with friends or family?: twice per week How often do you get together with friends or relatives?: three or more times per week How often do you attend congregation or rastafari services?: decline to answer Do you belong to any clubs or organized social groups?: no Panel score (0-1 are the most socially isolated patients): 2 What type of physical activity do you participate in: walking, other Details: treadmill,rower and additional Details: treadmill and rowing Duration: 45-60 minutes/day Frequency: 5-6 times per week Bee/Christian: None Special bee needs: No Seatbelt use: always Helmet use: Yes Helmet use: always Drive intox or ride w/intox ambulance driver: No Do you feel safe at home: Yes Do you feel safe in your relationship?: Yes Exam Narrative Exam Narrative: awake, NAD eomi, MMM midline trachea, neck is symmetric PULM: normal resp effort, equal chest rise with respiration, no wheezing audible CARDIAC: no jvd, regular rate, normal perfusion abdomen is softly distended. NG tube with scant bile stained clear fluid in tubing, none in canister. extremities are without deformity, normal movement of all four extremities speech is clear and coherent mood and affect are congruent, no focal neurological deficits skin without rash Results Last Vital Signs Temp 98.6 F 08/21/25 10:37 Pulse 96 H 08/21/25 10:37 Resp 18 08/21/25 10:37 BP 122/64 08/21/25 10:37 Pulse Ox 98 08/21/25 10:37 Labs 08/21/25 06:40 08/21/25 06:40 Labs: Laboratory Results - last 24 hr 08/20/25 08/20/25 08/20/25 22:50 23:03 23:55 WBC 11.85 H RBC 4.18 Hgb 11.7 Hct 32.9 L MCV 79 L MCH 28.0 MCHC 35.6 RDW 15.2 H Plt Count 363 MPV 8.7 Immature Gran % 0.3 Neutrophils % 89.7 Lymphocytes % 7.3 Monocytes % 2.2 Eosinophils % 0.2 Basophils % 0.3 Nucleated RBC % 0.0 Absolute Neutrophils 10.63 H Absolute Lymphocytes 0.87 L Absolute Monocytes 0.26 Absolute Eosinophils 0.02 Absolute Basophils 0.04 PT INR VBG Lactate 0.8 Sodium 135 L Potassium 3.0 L Chloride 96 L Carbon Dioxide 28.8 Anion Gap 10.3 BUN 9 Creatinine 0.68 Est GFR (CKD-EPI 2020) 84.43 Glucose 111 H Calcium 9.2 Magnesium 1.8 Total Bilirubin 0.8 AST 37 H ALT 21 Alkaline Phosphatase 88 Troponin I < 3 < 3 Total Protein 7.1 Albumin 4.5 Lipase 40 Urine Color Yellow Urine Clarity Clear Urine pH 7.5 Ur Specific [place] 1.020 Urine Protein Negative Urine Ketones 40 H Urine Blood Negative Urine Nitrite Negative Urine Bilirubin Negative Urine Urobilinogen 0.2 Ur Leukocyte Esterase Negative Urine Glucose Negative COVID-19 Source SARS-CoV-2 (PCR) Influenza Type A (PCR) Influenza Type B (PCR) RSV (PCR) Add-On Test Request DONE 08/21/25 08/21/25 03:05 06:40 WBC 11.01 H RBC 3.82 L Hgb 10.8 L Hct 30.2 L MCV 79 L MCH 28.3 MCHC 35.8 RDW 15.5 H Plt Count 316 MPV 8.8 Immature Gran % Neutrophils % Lymphocytes % Monocytes % Eosinophils % Basophils % Nucleated RBC % Absolute Neutrophils Absolute Lymphocytes Absolute Monocytes Absolute Eosinophils Absolute Basophils PT 10.0 INR 1.0 VBG Lactate Sodium 139 Potassium 3.7 Chloride 100 Carbon Dioxide 28.8 Anion Gap 10.2 BUN 8 L Creatinine 0.69 Est GFR (CKD-EPI 2020) 83.02 Glucose 89 Calcium 8.8 Magnesium 1.8 Total Bilirubin 0.7 AST 30 ALT 18 Alkaline Phosphatase 73 Troponin I Total Protein 6.1 Albumin 3.9 Lipase Urine Color Urine Clarity Urine pH Ur Specific [place] Urine Protein Urine Ketones Urine Blood Urine Nitrite Urine Bilirubin Urine Urobilinogen Ur Leukocyte Esterase Urine Glucose COVID-19 Source Nasopharynx SARS-CoV-2 (PCR) Negative Influenza Type A (PCR) Negative Influenza Type B (PCR) Negative RSV (PCR) Negative Add-On Test Request Imaging Abdomen CT scan report/results: report reviewed and image reviewed CT scan - pelvis: report reviewed and image reviewed
[2025-08-21] MEDS: Ketorolac 15 MG/ML VIAL IVP (12:54)
[2025-08-21] MEDS: POTASSIUM CHLORIDE/0.9% NACL 1,000 ML 425 MEQ IV (13:08)
--- NOTE | 2025-08-21 13:38 | PHA.REVIEW2 ---
Pharmacy Admission Review Admission Clinical Review Admission Pharmacy Review: Hypokalemia (Acute) Small bowel obstruction (Acute) Small bowel obstruction (Acute) Tetanus Vaccines and Toxoid Allergy (Intermediate, Verified 06/09/25 13:32) SEVERE LOCAL REACTION atenolol Adverse Reaction (Intermediate, Verified 06/09/25 13:32) [facility]UD[facility] Resuscitation Status DNR Height 5 ft Weight 68 kg Pharmacy Admission Review Renal Dosing Renal Dosing: BUN 8 mg/dL (9-23) L 08/21/25 06:40 Creatinine 0.69 mg/dL (0.55-1.02) 08/21/25 06:40 Medications needing adjustments: Reviewed (scr=0.69; crcl=42ml/min; reviewed meds (no changes needed)) Anticoagulation Anticoagulation: Hgb 10.8 g/dL (11.2-15.7) L 08/21/25 06:40 Hct 30.2 % (36.0-46.0) L 08/21/25 06:40 Plt Count 316 10^3/uL (130-400) 08/21/25 06:40 INR 1.0 (0.9-1.1) 08/21/25 06:40 Creatinine 0.69 mg/dL (0.55-1.02) 08/21/25 06:40 DVT Prophylaxis: Reviewed Medications: Heparin Opiate Usage Evaluate Pain Scale/Pains Meds: N/A Relevant Labs Relevant Labs: Sodium 139 mmol/L (136-145) 08/21/25 06:40 Potassium 3.7 mmol/L (3.5-5.1) 08/21/25 06:40 Chloride 100 mmol/L (98-107) 08/21/25 06:40 Magnesium 1.8 mg/dL (1.6-2.6) 08/21/25 06:40 Electrolytes, C-Reactive P, ESR: Reviewed DM Control DM Control: Reviewed Insulin Dosing, Diabetic Medication: am glucose=89; no history of dm or dm meds at home Cardiac Review Cardiac Review: Troponin I < 3 ng/L (<35) 08/20/25 23:55 BP, HR, EF%: Reviewed (zm=082/64; hr=96; on home losartan, hydrochlorothiazide, and amlodipine) QTc Review QTc: Reviewed List meds needing interventions: [id number] IV to PO Switch IV Medications: Reviewed (pt with SBO=receiving what she can IV for now) Home Meds Home Med List reviewed: Reviewed Current Meds Current Medication Order Review: Reviewed Pharmacy Antibiotic Review Comments: no antibiotics at this time
[2025-08-21] MEDS: CHLORASEPTIC MM (19:52)
[2025-08-21] MEDS: traMADol 50 MG TAB PO (21:19)
[2025-08-22 03:04] VITALS: BP 135/62; PULSE 89; RESP 17; TEMP 36.6; O2SAT 97
[2025-08-22 06:34] LABS: HCT 30.2 % (36.0-46.0); HGB 10.6 g/dL (11.2-15.7); MCH 29.4 pg (27.0-33.0); MCHC 35.1 % (32.0-36.0); MCV 84 fL (80-95); MPV 9.0 fL (8.0-11.0); Platelet Count 300 10^3/uL (130-400); RBC 3.61 10^6/uL (3.93-5.22); RDW 15.8 % (11.7-14.6); RDW-SD 48.2 fL; WBC 6.50 10^3/uL (4.4-10.8)
[2025-08-22] MEDS: Heparin 5,000 UNITS/ML VIAL 5000 UNITS SC ×3 (06:41→21:41)
[2025-08-22] MEDS: POTASSIUM CHLORIDE/0.9% NACL 1,000 ML 125 MEQ IV (06:46)
[2025-08-22 06:47] LABS: Magnesium 1.7 mg/dL (1.6-2.6)
[2025-08-22 06:48] LABS: ALT 14 U/L (10-49); AST 23 U/L (<34); Albumin 3.4 g/dL (3.2-5.0); Alkaline Phosphatase 64 U/L (46-116); Anion Gap 8.7 mmol/L (3-11); BUN 6 mg/dL (9-23); Bilirubin, Total 0.5 mg/dL (0.2-1.2); CO2 24.3 mmol/L (20.0-31.0); Calcium 7.8 mg/dL (8.3-10.6); Chloride 108 mmol/L (98-107); Glucose 68 mg/dL (74-106); Potassium 4.0 mmol/L (3.5-5.1); Sodium 141 mmol/L (136-145); Total Protein 5.3 g/dL (5.7-8.2)
[2025-08-22 07:54] VITALS: BP 144/79; PULSE 95; RESP 16; TEMP 37.1; O2SAT 97
[2025-08-22] MEDS: Normal Saline Flush 10 ML SYR IVP (09:01)
[2025-08-22] MEDS: amLODIPine 10 MG TAB PO (09:02)
[2025-08-22] MEDS: hydroCHLOROthiazide 25 MG TAB PO (09:02)
[2025-08-22] MEDS: Bisacodyl 10 MG SUPP PR (09:02)
[2025-08-22] MEDS: Pantoprazole 40 MG VIAL IVP (09:02)
--- NOTE | 2025-08-22 09:09 | PDOC.CMPRO ---
Date of service: 08/22/25 Time of Service: 09:09 Care Management Progress Note Progress Note Text Progress Note Text: Leona was sitting up in a chair when CM met with her. She still has the NG tube in place and it continues to cause her great discomfort. She informed CM that it feels as though she may have a sore where the tube lies in her throat. She has Chloraseptic spray ordered but it has done little to alleviate her symptoms.Leona is having a gastrograffin study today and is hoping that the NG tube can be removed. The follow up xray is at about 6 pm. Her other main concern is the fact that she is constipated. This is not unusual for her but it appears that the stool burden may be backed up as far as her small intestine. She has had a ducolax suppository and a fleet enema with only a small amount of stool passing. Leona's blood pressure is stabe and she is afebrile but she is still mildly tachycardic with HR in the 90s to low 100s. Discharge Potential Discharge Needs: Surgical F/U Appt Anticipated Barriers to Discharge: None Identified Patient/Family Education Needs: Review discharge instructions, discuss Ask Me Three Transportation: Private vehicle Plan: Anticipate Leona will be discharged home with no new services when stable. She will follow up with her surgeon and PCP and transport with her partner. CM will follow and continue to assess for discharge needs. Social Determinants of Health Screening Social Determinants of health last assessed in clinic: 08/22/25 Will the Patient Participate in the Screening?: Yes Do you worry about having a steady place to live?: no Problems where you live: no known problems In the past 12 months, have you had to go without electric, gas, oil or water in your home?: no 1. Within the past 12 months, we worried whether our food would run out before we got money to buy more.: Never true 2. Within the past 12 months, the food we bought just didn't last and we didn't have money to get more.: Never true Has lack of transportation kept you from medical appointments or from doing things needed for daily living?: no Has anyone in your life made you feel unsafe or unsupported?: no How hard is it for you to pay for the very basics like food, housing, medical care, and heating? Would you say it is:: Not hard at all Do you want help finding or keeping work or a job?: I do not need or want help If for any reason you need help with day-to-day activities such as bathing, preparing meals, shopping, managing finances, etc., do you get the help you need?: I don?t need any help How often do you feel lonely or isolated from those around you?: Never Do you speak a language other than Venezuelan at home?: Yes Health Related Social Needs Health related social needs: education (Z55.6)
[2025-08-22] MEDS: CHLORASEPTIC MM (09:57)
[2025-08-22] MEDS: Na Phosphate Enema-Adult 133 ML BTL PR (10:26)
[2025-08-22] MEDS: Gastrografin 120 ML BTL PO (10:27)
[2025-08-22 11:05] VITALS: BP 163/71; PULSE 99; RESP 17; TEMP 36.8; O2SAT 98
[2025-08-22 14:31] VITALS: BP 141/71; PULSE 104; RESP 18; TEMP 37.1; O2SAT 99
--- NOTE | 2025-08-22 16:46 | PGE_ITS ---
Date of Service Date of service: 08/22/25 Time of Service: 16:47 Assessment and Plan Assessment and plan (1) Small bowel obstruction: Status: Acute Assessment and plan: I did administer some Gastrografin earlier today, but I find her exam, and lack of symptoms to be very reassuring. In that regard, I do think it is reasonable to retry to remove the nasogastric tube. I did that this afternoon. I will give her just some ice chips for now, and I do think there is still value in seeing with the flatplate this evening shows with regards to the administered Gastrografin. Hopefully, we will see some progress down towards the colon, and she will continue to have bowel movements. If she does develop any new symptoms, then the nasogastric tube will have to be replaced. Subjective Subjective Interval history since last seen: Shoshana is feeling better this morning. She denies any abdominal pain. She had the nasogastric tube clamped for a while, and has developed no nausea or vomiting. She is also had some bowel function after administration of a suppository and enemas. Exam GI Other: Abdomen is soft and not very distended. She is not at all tender. Objective Last Vital Signs Temp 98.8 F 08/22/25 14:31 Pulse 104 H 08/22/25 14:31 Resp 18 08/22/25 14:31 BP 141/71 H 08/22/25 14:31 Pulse Ox 99 08/22/25 14:31 Laboratory Results - last 24 hr 08/22/25 06:14 WBC 6.50 RBC 3.61 L Hgb 10.6 L Hct 30.2 L MCV 84 D MCH 29.4 MCHC 35.1 RDW 15.8 H Plt Count 300 MPV 9.0 Sodium 141 Potassium 4.0 Chloride 108 H Carbon Dioxide 24.3 Anion Gap 8.7 BUN 6 L Creatinine 0.63 Est GFR (CKD-EPI 2020) 92.21 Glucose 68 L Calcium 7.8 L Magnesium 1.7 Total Bilirubin 0.5 AST 23 ALT 14 Alkaline Phosphatase 64 Total Protein 5.3 L Albumin 3.4 VTE Prohylaxis Risk Level: Moderate/High Risk Contraindications: None Prophylaxis: Pharmacologic and Mechanical Time Spent with Patient Time Spent with Patient: 25-34 minutes Time was spent: preparing to see the patient(eg.review tests), referring, communicating with other health wild animal caretaker, indepentently interpreting results and counseling the patient
--- NOTE | 2025-08-22 18:00 | DI.RAD_ITS ---
Exam(s) XR ABDOMEN FLAT PLATE EXAM: 2D digital imaging was performed. CLINICAL HISTORY: gastrografin challenge. COMPARISON: CT CT ABDOMEN PELVIS W from 08/20/2025 CR,XR XR PORTABLE CHEST AP from 08/21/2025 TECHNIQUE: Supine views of the abdomen performed 8 hours following Gastrografin administration. FINDINGS: BOWEL GAS PATTERN: The Gastrografin is present within distal small bowel as well as seen throughout the majority of the colon. The contrast has not yet reached the rectum. No abnormally dilated small bowel loops are identified. The stomach is not abnormally distended. OSSEOUS STRUCTURES: Right hip prosthesis. VISUALIZED LUNG BASES: Clear. SOFT TISSUES: Unremarkable. IMPRESSION: 1. The administered Gastrografin is seen in distal small bowel and through the majority of the colon to the level of the sigmoid. 2. No dilated small bowel loops. DATA REPOSITORY: RADIATION DOSE DELIVERED:
--- NOTE | 2025-08-22 19:37 | PGE_ITS ---
Date of Service Date of service: 08/22/25 Time of Service: 08:00 Assessment and Plan Assessment and plan (1) Small bowel obstruction: Start date: 08/21/25 Status: Acute Assessment and plan: Improving, awaiting gastrografin series Constipation addressed with suppository, enema, some improvement Continue NGT pending imaging Appreciate general surgery (2) Hypokalemia: Start date: 08/21/25 Status: Resolved Assessment and plan: Repleted, resolved. (3) Hypertension: Assessment and plan: Continue outpatient medical therapy as tolerated with clamping of the NG tube after administration. (4) GERD (gastroesophageal reflux disease): Assessment and plan: Continue PPI with IV Protonix while hospitalized and with NG tube in place. (5) Spinal stenosis, lumbar region with neurogenic claudication: Status: Chronic Assessment and plan: Continue tramadol. (6) Herpes simplex: Status: Chronic Assessment and plan: Recurrent over the patient's buttocks with acyclovir used for 3-day course as needed. Subjective Subjective Interval history since last seen: Mrs. Kc has painful throat irritation from the NGT and is hoping to get it out. No new complaints. Some stooling after bowel regimen. Exam Narrative Exam Narrative: General: This is a pleasant woman in distress due to throat pain HEENT: Normocephalic, atraumatic. NGT in place. CV: RRR Resp: CTAB Abd: soft, NTND MSK: voluntary motion x4 Neuro: awake, alert, no focal deficits Objective Last Vital Signs Temp 37.1 C 08/22/25 14:31 Pulse 104 H 08/22/25 14:31 Resp 18 08/22/25 14:31 BP 141/71 H 08/22/25 14:31 Pulse Ox 99 08/22/25 14:31 Laboratory Results - last 24 hr 08/22/25 06:14 WBC 6.50 RBC 3.61 L Hgb 10.6 L Hct 30.2 L MCV 84 D MCH 29.4 MCHC 35.1 RDW 15.8 H Plt Count 300 MPV 9.0 Sodium 141 Potassium 4.0 Chloride 108 H Carbon Dioxide 24.3 Anion Gap 8.7 BUN 6 L Creatinine 0.63 Est GFR (CKD-EPI 2020) 92.21 Glucose 68 L Calcium 7.8 L Magnesium 1.7 Total Bilirubin 0.5 AST 23 ALT 14 Alkaline Phosphatase 64 Total Protein 5.3 L Albumin 3.4 VTE Prohylaxis Risk Level: Moderate/High Risk Contraindications: None Prophylaxis: Pharmacologic and Mechanical Time Spent with Patient Time Spent with Patient: 25-34 minutes Time was spent: preparing to see the patient(eg.review tests), obtaining and/or reviewing separately otained hiistory, ordering medications,tests, procedures, referring, communicating with other health healthcare administration intern, indepentently interpreting results, counseling the patient and care coordination
[2025-08-22 19:40] VITALS: BP 151/66; PULSE 102; RESP 18; TEMP 37.4; O2SAT 96
[2025-08-22] MEDS: Polyethylene Glycol 3350 17 GM PACKET PO (20:06)
[2025-08-22] MEDS: Senna TAB 1 TAB PO (20:06)
[2025-08-22] MEDS: Milk of Magnesia 30 ML CUP PO (20:06)
[2025-08-22] MEDS: traMADol 50 MG TAB PO (21:41)
[2025-08-22 23:51] VITALS: BP 130/60; PULSE 98; RESP 18; TEMP 36.9; O2SAT 97
[2025-08-23 03:57] VITALS: BP 120/54; PULSE 89; RESP 18; TEMP 35.9; O2SAT 96
[2025-08-23 06:53] LABS: HCT 29.3 % (36.0-46.0); HGB 10.2 g/dL (11.2-15.7); MCH 28.5 pg (27.0-33.0); MCHC 34.8 % (32.0-36.0); MCV 82 fL (80-95); MPV 8.9 fL (8.0-11.0); Platelet Count 283 10^3/uL (130-400); RBC 3.58 10^6/uL (3.93-5.22); RDW 15.7 % (11.7-14.6); RDW-SD 47.3 fL; WBC 6.59 10^3/uL (4.4-10.8)
[2025-08-23] MEDS: Heparin 5,000 UNITS/ML VIAL 5000 UNITS SC (06:57)
[2025-08-23 07:13] LABS: ALT 15 U/L (10-49); AST 24 U/L (<34); Albumin 3.8 g/dL (3.2-5.0); Alkaline Phosphatase 69 U/L (46-116); Anion Gap 11.4 mmol/L (3-11); BUN 7 mg/dL (9-23); Bilirubin, Total 0.6 mg/dL (0.2-1.2); CO2 25.6 mmol/L (20.0-31.0); Calcium 8.7 mg/dL (8.3-10.6); Chloride 102 mmol/L (98-107); Glucose 68 mg/dL (74-106); Potassium 3.8 mmol/L (3.5-5.1); Sodium 139 mmol/L (136-145); Total Protein 5.9 g/dL (5.7-8.2)
[2025-08-23 07:14] LABS: Magnesium 1.7 mg/dL (1.6-2.6)
[2025-08-23 07:53] VITALS: BP 122/71; PULSE 93; RESP 18; TEMP 36.2; O2SAT 99
[2025-08-23] MEDS: Normal Saline Flush 10 ML SYR IVP (08:10)
[2025-08-23] MEDS: Docusate Sodium 100 MG CAP PO (08:11)
[2025-08-23] MEDS: Losartan 50 MG TAB 100 MG PO (08:11)
[2025-08-23] MEDS: Multivitamin TAB 1 TAB PO (08:11)
[2025-08-23] MEDS: amLODIPine 10 MG TAB PO (08:11)
[2025-08-23] MEDS: Pantoprazole 40 MG VIAL IVP (08:11)
[2025-08-23] MEDS: hydroCHLOROthiazide 25 MG TAB PO (08:11)
--- NOTE | 2025-08-23 09:16 | W.PM.PROGNOT ---
Date of Service Date of service: 08/23/25 Time of Service: 09:16 Assessment and Plan Assessment and plan (1) Small bowel obstruction: Status: Acute Assessment and plan: Patient is a 74-year-old female admitted to the hospitalist service for concern for potential small bowel obstruction. An NG tube was placed and subsequently removed. She had a Gastrografin study yesterday which showed contrast in the colon. Her diet was advanced. She notes that she had a large bowel movement this morning and is feeling well. She is going to trial breakfast today. On exam she is afebrile and hemodynamically stable. Her abdomen is soft, nondistended, and nontender to palpation. Would recommend advancing diet as tolerated. She would like to go home later today which I think is appropriate if she is able to tolerate a regular diet and continues to have bowel function. An appropriate bowel regimen was discussed with her for discharge. Subjective Subjective Interval history since last seen: She states she is doing well this morning. She notes that she had a larger bowel movement this morning. She denies any ongoing nausea, vomiting, fevers, chills, or abdominal pain. She notes that she is hungry and going to eat breakfast this morning. She feels as though she would like to go home later today. Exam Narrative Exam Narrative: General: Well appearing, no acute distress. Skin: Good turgor, no visible rashes or lesion HEENT: Normocephalic, atraumatic CV: Regular rate Lungs: Bilateral equal chest rise, non-labored breathing Abdomen: Soft, non-tender, non-distended Extremities: Warm, well perfused Neurologic: No focal deficits Psychiatric: Alert and oriented, normal mood and affect Objective Last Vital Signs Temp 36.2 C L 08/23/25 07:53 Pulse 93 H 08/23/25 07:53 Resp 18 08/23/25 07:53 BP 122/71 08/23/25 07:53 Pulse Ox 99 08/23/25 07:53 Laboratory Results - last 24 hr 08/23/25 06:33 WBC 6.59 RBC 3.58 L Hgb 10.2 L Hct 29.3 L MCV 82 MCH 28.5 MCHC 34.8 RDW 15.7 H Plt Count 283 MPV 8.9 Sodium 139 Potassium 3.8 Chloride 102 Carbon Dioxide 25.6 Anion Gap 11.4 H BUN 7 L Creatinine 0.66 Est GFR (CKD-EPI 2020) 87.39 Glucose 68 L Calcium 8.7 Magnesium 1.7 Total Bilirubin 0.6 AST 24 ALT 15 Alkaline Phosphatase 69 Total Protein 5.9 Albumin 3.8 VTE Prohylaxis Risk Level: Moderate/High Risk Contraindications: None Prophylaxis: Pharmacologic and Mechanical Time Spent with Patient Time Spent with Patient: <25 minutes Time was spent: preparing to see the patient(eg.review tests), obtaining and/or reviewing separately otained hiistory, indepentently interpreting results and counseling the patient
--- NOTE | 2025-08-23 09:51 | PDOC.CMDIS ---
Date of service: 08/23/25 Time of Service: 09:52 LACE Index Scoring Tool Questions: Length of Stay (in days): 2 Was the patient admitted via the E.D.?: Yes E.D. Visits: 1 Answers: Total Score: 6 Risk of Readmission: Low Risk Care Management Discharge Plan Reason for Hospitalization: SBO, hypokalemia, HTN Discharge Plan: Leona will be discharged home with no new services today. It is recommended she follow up with her community providers and continue per her discharge plan of care. She will transport home via private vehicle by family. Patient/Family Education Needs: Review of discharge instruction, activity, limitations, and plan of care. Discuss ask me three. SDOH Health Related Social Needs: Health related social needs education
[2025-08-23 12:14] VITALS: BP 146/68; PULSE 87; RESP 17; TEMP 36.9; O2SAT 100
--- NOTE | 2025-08-23 13:05 | W.PM.DS.N ---
Date of service: 08/23/25 Time of Service: 08:00 DS: Diagnosis Discharge Diagnosis (1) Small bowel obstruction: Status: Resolved Asessment and Plan: Transition point seen on imaging, but possibly secondary to constipation related to GLP-1 Improvement with NGT decompression Contrast in colon with gastrografin imaging Tolerating PO Lengthy discussion about bowel regimen, hydration, exercise Discharge Plan Disposition Patient Disposition: Home Condition: Good Discharge Details Reason For Visit: Small Bowel Obstruction, Hypokalemia, HTN Admit Date/Time: 08/21/25 02:13 Admit Provider: Bunny Lee Attending Provider: Bunny Lee Primary Care Provider: Meño Cowan Hospital Course Hospital Course: Leona Kc is a 74 year old woman presenting August 20 with abdominal pain and vomiting, found to have transition point on imaging suggestive of SBO. She was admitted for bowel rest and NGT decompression, with general surgery consulting. She has significant constipation, possibly increasing likelihood of SBO; her use of GLP-1 has worsened her chronic constipation. She had contrast in her colon on imaging on hospital day 2, signifying patent GI tract, and NGT was removed. She is tolerating PO and stooling. She is safe to return home at this time. Home Meds and New Rx's Prescriptions: Continued valacyclovir 500 mg tablet 1,000 mg PO Q3D PRN Patient Comments: TAKE TWO TABLETS BY MOUTH EVERY DAY FOR 3 DAYS multivitamin [Once Daily] 1 EACH tablet 1 tab PO DAILY docusate sodium [Colace] 100 MG capsule 100 mg PO DAILY Qty: 180 hydrochlorothiazide 25 mg tablet 25 mg PO QAM Qty: 90 3RF losartan 100 mg tablet See Rx Instructions .ROUTE .COMPLEX Qty: 90 3RF Dose Instruction: TAKE ONE TABLET BY MOUTH EVERY DAY Rx Instructions: TAKE ONE TABLET BY MOUTH EVERY DAY amlodipine [Norvasc] 10 mg tablet 10 mg PO QAM Qty: 90 3RF omeprazole 40 mg capsule,delayed release(DR/EC) 40 mg PO DAILY Qty: 180 3RF tramadol 50 mg tablet 50 mg PO QHS PRN (Reason: pain/sleep) Qty: 30 2RF acetaminophen 500 mg tablet 1,000 mg PO Q8H PRN Qty: 90 0RF Rx Instructions: Take two tablets up to every 8 hours as needed for pain semaglutide 2.5 mg/mL solution 2.5 mg subcut .Weekly No Action lactulose 10 gram/15 mL solution 20 g PO BID PRN (Reason: constipation) Qty: 1200 0RF Discharge Instructions Stand Alone Forms: Portal Information, Nursing Discharge Form Referrals: Meño Cowan MD [Primary Care Provider, Medicine] Referral Note: Your PCP will reach out, if you do not hear from them please call. Activity:: Activity as Tolerated Equipment/Supplies:: No Equipment Needed Diet:: As Tolerated Discharge Orders Discharge Orders: Discharge Order (Routine); Ordered 08/23/25 Ordered By: Mikey Lewis Discharge Data Discharge Date/Time-TO BE ENTERED AT DEPARTURE: 08/23/25 16:00 DS: Summary Time Spent with Patient providing and/or coordinating discharge services: Less than 30 minutes Status at Discharge Functional status at discharge: independent ambulation Overall status at discharge: patient is progressing back to baseline Mental Status: mental status grossly normal Speech and Movement: speech and movement normal Mood: congruent mood Affect: normal affect Quality:SDOH Health Related Social Needs: Health related social needs education Exam Narrative Exam Narrative: General: This is a pleasant woman in distress due to throat pain HEENT: Normocephalic, atraumatic. NGT in place. CV: RRR Resp: CTAB Abd: soft, NTND MSK: voluntary motion x4 Neuro: awake, alert, no focal deficits Psych Mental Status: mental status grossly normal Speech and Movement: speech and movement normal Mood: congruent mood Affect: normal affect DS: Data Vitals/I&O Vitals and I&O: Vital Signs Temperature 36.9 C 08/23/25 12:14 Temperature Source Temporal Artery Scan 08/23/25 12:14 Pulse 87 08/23/25 12:14 Pulse Rhythm Regular 08/21/25 04:04 Respiratory Rate 17 08/23/25 12:14 Respiratory Effort Normal 08/21/25 04:04 Respiratory Depth Normal 08/21/25 04:04 Respiratory Pattern Normal 08/21/25 04:04 Blood Pressure 146/68 H 08/23/25 12:14 Blood Pressure Mean 94 08/23/25 12:14 Blood Pressure Position Sitting 08/20/25 22:21 Pulse Oximetry 100 08/23/25 12:14 Respiratory End-tidal CO2 18 08/21/25 02:07 Oxygen Delivery Method Room Air 08/23/25 12:14 Oxygen Flow Rate 0 08/23/25 12:14 Pain Level 0 08/23/25 12:14 Comment Notifying RN 08/22/25 14:31 Intake & Output 08/22/25 08/23/25 08/23/25 23:59 11:59 23:59 Intake Total 320 / 540 220 / 540 Balance 320 / 540 220 / 540 Weight 68.3 kg Intake: IV 0 / 0 Oral 320 / 540 220 / 540 Other: Urine Color Yellow Yellow Urine Appearance Clear Urine Odor Normal Comment Pt independently takes herself to the restroom. Stool Size Small Large Stool Characteristics Hard Liquid Brown Data Completed and Pending Pending Labs at Discharge: 08/20/25 08/20/25 08/20/25 22:50 23:03 23:55 WBC 11.85 H RBC 4.18 Hgb 11.7 Hct 32.9 L MCV 79 L MCH 28.0 MCHC 35.6 RDW 15.2 H Plt Count 363 MPV 8.7 Immature Gran % 0.3 Neutrophils % 89.7 Lymphocytes % 7.3 Monocytes % 2.2 Eosinophils % 0.2 Basophils % 0.3 Nucleated RBC % 0.0 Absolute Neutrophils 10.63 H Absolute Lymphocytes 0.87 L Absolute Monocytes 0.26 Absolute Eosinophils 0.02 Absolute Basophils 0.04 PT INR VBG Lactate 0.8 Sodium 135 L Potassium 3.0 L Chloride 96 L Carbon Dioxide 28.8 Anion Gap 10.3 BUN 9 Creatinine 0.68 Est GFR (CKD-EPI 2020) 84.43 Glucose 111 H Calcium 9.2 Magnesium 1.8 Total Bilirubin 0.8 AST 37 H ALT 21 Alkaline Phosphatase 88 Troponin I < 3 < 3 Total Protein 7.1 Albumin 4.5 Lipase 40 Urine Color Yellow Urine Clarity Clear Urine pH 7.5 Ur Specific [place] 1.020 Urine Protein Negative Urine Ketones 40 H Urine Blood Negative Urine Nitrite Negative Urine Bilirubin Negative Urine Urobilinogen 0.2 Ur Leukocyte Esterase Negative Urine Glucose Negative COVID-19 Source SARS-CoV-2 (PCR) Influenza Type A (PCR) Influenza Type B (PCR) RSV (PCR) Add-On Test Request DONE 08/21/25 08/21/25 08/22/25 03:05 06:40 06:14 WBC 11.01 H 6.50 RBC 3.82 L 3.61 L Hgb 10.8 L 10.6 L Hct 30.2 L 30.2 L MCV 79 L 84 D MCH 28.3 29.4 MCHC 35.8 35.1 RDW 15.5 H 15.8 H Plt Count 316 300 MPV 8.8 9.0 Immature Gran % Neutrophils % Lymphocytes % Monocytes % Eosinophils % Basophils % Nucleated RBC % Absolute Neutrophils Absolute Lymphocytes Absolute Monocytes Absolute Eosinophils Absolute Basophils PT 10.0 INR 1.0 VBG Lactate Sodium 139 141 Potassium 3.7 4.0 Chloride 100 108 H Carbon Dioxide 28.8 24.3 Anion Gap 10.2 8.7 BUN 8 L 6 L Creatinine 0.69 0.63 Est GFR (CKD-EPI 2020) 83.02 92.21 Glucose 89 68 L Calcium 8.8 7.8 L Magnesium 1.8 1.7 Total Bilirubin 0.7 0.5 AST 30 23 ALT 18 14 Alkaline Phosphatase 73 64 Troponin I Total Protein 6.1 5.3 L Albumin 3.9 3.4 Lipase Urine Color Urine Clarity Urine pH Ur Specific [place] Urine Protein Urine Ketones Urine Blood Urine Nitrite Urine Bilirubin Urine Urobilinogen Ur Leukocyte Esterase Urine Glucose COVID-19 Source Nasopharynx SARS-CoV-2 (PCR) Negative Influenza Type A (PCR) Negative Influenza Type B (PCR) Negative RSV (PCR) Negative Add-On Test Request 08/23/25 06:33 WBC 6.59 RBC 3.58 L Hgb 10.2 L Hct 29.3 L MCV 82 MCH 28.5 MCHC 34.8 RDW 15.7 H Plt Count 283 MPV 8.9 Immature Gran % Neutrophils % Lymphocytes % Monocytes % Eosinophils % Basophils % Nucleated RBC % Absolute Neutrophils Absolute Lymphocytes Absolute Monocytes Absolute Eosinophils Absolute Basophils PT INR VBG Lactate Sodium 139 Potassium 3.8 Chloride 102 Carbon Dioxide 25.6 Anion Gap 11.4 H BUN 7 L Creatinine 0.66 Est GFR (CKD-EPI 2020) 87.39 Glucose 68 L Calcium 8.7 Magnesium 1.7 Total Bilirubin 0.6 AST 24 ALT 15 Alkaline Phosphatase 69 Troponin I Total Protein 5.9 Albumin 3.8 Lipase Urine Color Urine Clarity Urine pH Ur Specific [place] Urine Protein Urine Ketones Urine Blood Urine Nitrite Urine Bilirubin Urine Urobilinogen Ur Leukocyte Esterase Urine Glucose COVID-19 Source SARS-CoV-2 (PCR) Influenza Type A (PCR) Influenza Type B (PCR) RSV (PCR) Add-On Test Request [facility] All Active Problems (Updated 08/24/25 @ 00:04 by CHELO PIRES) Insomnia (Acute) Right thigh pain (Acute) Dysplastic skin lesion (Acute) Lumbar spondylosis (Acute) Mechanical low back pain (Acute) Lumbar stenosis (Acute) Leg numbness (Acute) Hip pain, right (Acute) Degenerative joint disease (DJD) of lumbar spine (Acute) Neuropathy, peripheral (Acute) Central slip extensor tendon injury (boutonniere) (Acute ~11/11/22) Right little finger Hand pain, right (Acute) Closed fracture of right distal fibula (Acute 08/02/21) Right anterior knee pain (Acute) Chronic knee pain (Acute) Depressive disorder (Acute) Dysplasia of cervix (Acute) History of varicose vein ligation (Acute) Osteopenia (Acute) Esophagitis determined by biopsy (Acute) H/O esophagogastroduodenoscopy (Chronic ~06/2018) Esophagitis (Acute) Osteoarthritis (Acute) RIGHT WRIST Hypertension (Acute) Back skin lesion (Acute 07/11/17) Atrophic vaginitis (Acute 05/29/15) GERD without esophagitis (Acute) 05/25/18-[facility]- Hoarseness of voice (Acute) Medical History Fusion of lumbar spine 10/02; L4-5; [facility] Change in voice GERD (gastroesophageal reflux disease) Basal cell carcinoma, arm (~01/18/19) 01/18/19 [facility] [place]; B/L Gastric polyp Laryngopharyngeal reflux (LPR) 05/25/18-[facility]- Dysplasia of cervix (uteri) Depressive disorder Osteopenia Back skin lesion Atrophic vaginitis Hypertension Osteoarthritis of right wrist Surgical History History of total right hip replacement (04/12/25) Hx of fusion of cervical spine C3-4; C4-C5, [facility], 05/2024 Hx of meniscectomy of right knee (08/07/21) Fracture of right ulnar styloid excision of non-union fracture fragment of ulna styloid Dr. Bower DOS: 11/07/08 Hx of colonoscopy VEIN ABLATION greater saphenous vein LTL (~1987) HERNIA REPAIR epigastric Cervical Procedure CONE BX Family History Mother , 79 Heart disease Macular degeneration Father , 62 Lung cancer Sister , 63 Lung cancer Maternal Grandfather Lung cancer Paternal Grandfather , 35 Septicemia AT YOUNG AGE Maternal Grandmother , 60 Essential hypertension Heart disease CHF Paternal Grandmother , 88 Stroke Sister No problems noted. Sister No problems noted. Son Essential hypertension Daughter No problems noted. Social History Smoking/Tobacco Use Status: Former Tobacco Use tobacco type: cigarettes Quit Date: 09/08/84 Tobacco: How many years used: 18 Second Hand Exposure: Yes Smoking risk assessment performed?: Yes Alcohol Intake: never Drug use: Never Substance use type: does not use Caregiver/Support person: No Household members: significant other Housing: house Communication Needs: None Do you need help understanding health information?: Never Pets and animals: Yes Pets and animals: dog(s) Sexually active: Yes Do you think of yourself as: straight/heterosexual Current gender identity: female What is your relationship status?: living with partner How often do you talk on the phone with friends or family?: twice per week How often do you get together with friends or relatives?: three or more times per week How often do you attend sabianism or yazdanism services?: decline to answer Do you belong to any clubs or organized social groups?: no Panel score (0-1 are the most socially isolated patients): 2 What type of physical activity do you participate in: walking, other Details: treadmill,rower and additional Details: treadmill and rowing Duration: 45-60 minutes/day Frequency: 5-6 times per week Bee/Mormon: None Special bee needs: No Seatbelt use: always Helmet use: Yes Helmet use: always Drive intox or ride w/intox ems driver: No Do you feel safe at home: Yes Do you feel safe in your relationship?: Yes Time Spent with Patient Time Spent with Patient: <45 minutes Time was spent: preparing to see the patient(eg.review tests), obtaining and/or reviewing separately otained hiistory, ordering medications,tests, procedures, referring, communicating with other health intensive care ambulance paramedic, indepentently interpreting results, counseling the patient and care coordination
--- NOTE | 2025-08-23 15:12 | CHAPLAIN ---
Leona was up in the chair in her own [facility] when I visited. She said she's starting to feel better after spending two nights here. She's hoping to go home today. 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 She talked about experiencing the hospital as patient rather than a nurse.
== END 2025-08-23 16:00 | disposition home or self-care (01) | DRG 389 ==
LOC: ER 08-21 02:17 → MS 08-21 03:32
PROVIDERS: Admitting Provider Family Medicine; Emergency Provider Student in an Organized Health Care Education/Training Program; PCP Family Medicine; Responsible Provider Family Medicine; Visit Provider Family Medicine
DX: K56.699 Other intestinal obstruction unspecified as to partial versus complete obstruction (principal); B00.89 Other herpesviral infection; E87.6 Hypokalemia; T38.3X5A Adverse effect of insulin and oral hypoglycemic [antidiabetic] drugs, initial encounter; I10 Essential (primary) hypertension; M48.062 Spinal stenosis, lumbar region with neurogenic claudication; K42.9 Umbilical hernia without obstruction or gangrene; G47.00 Insomnia, unspecified; G62.9 Polyneuropathy, unspecified; F32.A Depression, unspecified; K21.9 Gastro-esophageal reflux disease without esophagitis; M85.80 Other specified disorders of bone density and structure, unspecified site; Z96.641 Presence of right artificial hip joint; Z79.85 Long-term (current) use of injectable non-insulin antidiabetic drugs; K59.09 Other constipation
CPT/HCPCS: 00123; 36415; 80053; 83690; 85027; 87637; 93005; 96361; 96365; 96375; 99222; 99231; 99285; 71045; 74018; 74177; 81003; 83605; 83735; 84484; 85025; 85610; 93010; 99223; 99238; J0131; J1644; J1885; J2405; J2470; J3480; J3490